=== PATIENT | female | born 1945 | race Caucasian/White ===

== ENCOUNTER 2020-12-11 09:24 | Outpatient (REF) | payer MEDICARE, SELFPAY ==
[2020-12-11 11:47] LABS: MANUAL DIFF FLAG NO
[2020-12-11 11:55] LABS: Basophils Absolute Auto 0.1 X10*3/uL (0.0-0.2); Basophils Percent Auto 0.7 % (0-2); Eosinophils Absolute Auto 0.1 X10*3/uL (0.0-0.4); Eosinophils Percent Auto 1.4 % (0-4); Hematocrit 35.7 % (37-47); Hemoglobin 11.8 g/dl (12.0-16.0); Imm Gran Abs Auto 0.02 X10*3/uL (0.00-0.03); Imm Gran Pct Auto 0.3 % (0.0-0.4); Lymphocytes Absolute Auto 1.9 X10*3/uL (1.2-4.9); Lymphocytes Percent Auto 26.6 % (20-40); Mean Corpuscular HGB Conc 33.1 g/dl (31.0-35.0); Mean Corpuscular Hemoglobin 29.6 pg (27.0-33.0); Mean Corpuscular Volume 89.7 fL (80-98); Mean Platelet Volume 11.4 fL (9.4-12.3); Monocytes Absolute Auto 0.6 X10*3/uL (0.1-1.2); Monocytes Percent Auto 8.4 % (2-11); Neutrophils Absolute Auto 4.6 X10*3/uL (2.0-8.3); Neutrophils Percent Auto 62.6 % (45-73); Platelet Count 285 X10*3/uL (160-400); Red Blood Count 3.98 X10*6/uL (4.20-5.50); Red Cell Distribution Width 14.4 % (11.0-16.0); White Blood Count 7.3 X10*3/uL (4.8-10.8)
[2020-12-11 12:19] LABS: Estimated Average Glucose 108 mg/dL; Hemoglobin A1c % 5.4 %
[2020-12-11 12:47] LABS: Alanine Aminotransferase < 6 U/L (0-31); Anion Gap 14 (12-20); Blood Urea Nitrogen 15 mg/dL (9-16); Carbon Dioxide 22 mmol/L (22-29); Chloride 105 mmol/L (96-108); Cholesterol 191 mg/dL; Estimated Glomerular Filt Rate > 60; Glucose Fasting 106 mg/dL (60-99); HDL Cholesterol 65 mg/dL; LDL Cholesterol Calculated 106 mg/dl; Potassium 4.1 mmol/L (3.3-5.1); Sodium 137 mmol/L (135-145); Triglycerides 102 mg/dL
== END 2020-12-11 09:25 | disposition home or self-care (01) ==
LOC: HO.HMGCLDS 09:24
PROVIDERS: PCP Family Medicine; Visit Provider Family Medicine
DX: I10 Essential (primary) hypertension (principal); D64.9 Anemia, unspecified; E78.00 Pure hypercholesterolemia, unspecified; Z79.899 Other long term (current) drug therapy; E11.9 Type 2 diabetes mellitus without complications
CPT/HCPCS: 36415; 80051; 80061; 82550; 82565; 82947; 83036; 84460; 84520; 85025

== ENCOUNTER 2021-06-11 13:52 | Outpatient (REF) | payer MEDICARE, SELFPAY ==
--- NOTE | ~2021-06-11 | MM_ITS ---
EXAMINATION: MM SCREENING DIGITAL BREAST TOMOSYNTHESIS, BILATERAL CLINICAL INFORMATION: Screening. Asymptomatic. 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 The lifetime risk of breast cancer based on the Tyrer-Cuzick Model is 5%. COMPARISON: Mammography: 06/08/2020, 06/03/2019, 06/01/2018, 05/27/2016 TECHNIQUE: Digital breast tomosynthesis is performed in both the craniocaudal and mediolateral oblique views along with computer-aided detection (CAD). Synthesized 2D images are generated from the tomosynthesis. Exam tailored to patient capabilities. FINDINGS: There are scattered areas of fibroglandular density (ACR BI-RADS breast composition Category b). Parenchymal pattern is similar to prior studies and there is no developing density or significant mass or architectural abnormality. Biopsy clip marker again noted anterior 12:00 right breast. The axilla and skin contours are unremarkable. The left breast has some benign grouped coarse calcifications mid 7:00 position and posterior upper outer quadrant. There are 2 groups of probable benign fibroadenomatous calcifications central left breast, both increased since 2019. Patient will be recalled to further characterize with magnification views. MM/MM tomosynthesis screening BI IMPRESSION: 1. Left: 2 groups of relatively coarse calcifications central left breast increased in number, suspect probable fibroadenomatous change. 2. Right: No mammographic evidence of malignancy. ASSESSMENT: BI-RADS 0: Incomplete - Need Additional Imaging Evaluation RECOMMENDATION: 1. Additional views of the left breast (magnification CC, magnification ML). 2. Radiology department staff will contact the patient for additional imaging. This patient's information was entered into a reminder system with a target due date for their next mammogram.
== END 2021-06-11 13:53 | disposition home or self-care (01) ==
LOC: HO.MAMMO 13:52
PROVIDERS: PCP Family Medicine; Visit Provider Family Medicine
DX: Z12.31 Encounter for screening mammogram for malignant neoplasm of breast (principal)
CPT/HCPCS: 77063; 77067

== ENCOUNTER 2021-06-19 12:16 | Outpatient (REF) | payer MEDICARE, SELFPAY ==
--- NOTE | ~2021-06-19 | MM_ITS ---
EXAMINATION: MM DIAGNOSTIC DIGITAL MAMMOGRAPHY, LEFT CLINICAL INFORMATION: Recall from screening for 2 groups of increased calcifications central left breast. COMPARISON: Mammography: 06/11/2021, 06/08/2020, 06/03/2019 TECHNIQUE: Digital mammography is performed in the following views: Magnification CC, magnification ML. FINDINGS: There are scattered areas of fibroglandular density (ACR BI-RADS breast composition Category b). 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 A few centimeters anterior to this group are increased heterogeneously coarse calcifications which appear grouped in a circumferential pattern, possibly early fibroadenomatous change. There is a second group coarse calcifications of lesser number central upper outer left breast which have benign appearance, possibly early fibroadenomatous changes as well. Results and management options are provided to the patient and her sister at time of visit. MM/MM added views LT IMPRESSION: The 2 groups of increased calcifications left breast may represent early fibroadenomatous change. ASSESSMENT: BI-RADS 3: Probably Benign RECOMMENDATION: Diagnostic left mammography in 6 months. This patient's information was entered into a reminder system with a target due date for their next mammogram.
== END 2021-06-19 12:17 | disposition home or self-care (01) ==
LOC: HO.MAMMO 12:16
PROVIDERS: Visit Provider Family Medicine
DX: R92.1 Mammographic calcification found on diagnostic imaging of breast (principal)
CPT/HCPCS: 77065

== ENCOUNTER 2021-06-26 09:35 | Outpatient (REF) | payer MEDICARE, SELFPAY ==
[2021-06-26 12:26] LABS: Alanine Aminotransferase < 6 U/L (0-31); Anion Gap 14 (12-20); Aspartate Amino Transferase 10 U/L (5-31); Blood Urea Nitrogen 12 mg/dL (9-16); Carbon Dioxide 21 mmol/L (22-29); Chloride 106 mmol/L (96-108); Estimated Glomerular Filt Rate > 60; Potassium 4.6 mmol/L (3.3-5.1); Sodium 136 mmol/L (135-145)
[2021-06-26 12:28] LABS: Valproate 49.9 mcg/mL (50.0-100.0)
== END 2021-06-26 09:36 | disposition home or self-care (01) ==
LOC: HO.HMGCLDS 09:35
PROVIDERS: PCP Family Medicine; Visit Provider Family Medicine
DX: I10 Essential (primary) hypertension (principal); E78.00 Pure hypercholesterolemia, unspecified; Z79.899 Other long term (current) drug therapy
CPT/HCPCS: 36415; 80051; 80164; 82550; 82565; 84450; 84460; 84520

== ENCOUNTER 2021-12-10 09:51 | Outpatient (REF) | payer MEDICARE, SELFPAY ==
[2021-12-10 11:15] LABS: MANUAL DIFF FLAG NO
[2021-12-10 11:25] LABS: Basophils Percent Auto 0.5 % (0-2); Eosinophils Absolute Auto 0.1 X10*3/uL (0.0-0.4); Eosinophils Percent Auto 0.8 % (0-4); Hematocrit 34.4 % (37.0-47.0); Hemoglobin 11.6 g/dl (12.0-16.0); Imm Gran Abs Auto 0.02 X10*3/uL (0.00-0.03); Imm Gran Pct Auto 0.3 % (0.0-0.4); Lymphocytes Absolute Auto 1.6 X10*3/uL (1.2-4.9); Lymphocytes Percent Auto 24.6 % (20-40); Mean Corpuscular HGB Conc 33.7 g/dl (31.0-35.0); Mean Corpuscular Hemoglobin 29.6 pg (27.0-33.0); Mean Corpuscular Volume 87.8 fL (80.0-98.0); Mean Platelet Volume 10.6 fL (9.4-12.3); Monocytes Absolute Auto 0.6 X10*3/uL (0.1-1.2); Monocytes Percent Auto 9.8 % (2-11); Neutrophils Absolute Auto 4.1 x10*3/uL (2.0-8.3); Platelet Count 245 X10*3/uL (160-400); Red Blood Count 3.92 X10*6/uL (4.20-5.50); Red Cell Distribution Width 13.4 % (11.0-16.0); White Blood Count 6.3 X10*3/uL (4.8-10.8)
[2021-12-10 12:00] LABS: Valproate 53.7 mcg/mL (50.0-100.0)
[2021-12-10 12:03] LABS: Alanine Aminotransferase 6 U/L (0-31); Anion Gap 12 (12-20); Aspartate Amino Transferase 11 U/L (5-31); Blood Urea Nitrogen 8 mg/dL (9-16); Carbon Dioxide 22 mmol/L (22-29); Chloride 99 mmol/L (96-108); Estimated Glomerular Filt Rate > 60; Potassium 4.2 mmol/L (3.3-5.1); Sodium 129 mmol/L (135-145)
== END 2021-12-10 09:52 | disposition home or self-care (01) ==
LOC: HO.LAB 09:51
PROVIDERS: Visit Provider Family Medicine
DX: I10 Essential (primary) hypertension (principal); D64.9 Anemia, unspecified; Z79.899 Other long term (current) drug therapy
CPT/HCPCS: 36415; 80051; 80164; 82565; 84450; 84460; 84520; 85025

== ENCOUNTER 2021-12-20 12:28 | Outpatient (REF) | payer MEDICARE, SELFPAY ==
--- NOTE | ~2021-12-20 | MM_ITS ---
EXAMINATION: MM DIAGNOSTIC DIGITAL BREAST TOMOSYNTHESIS, LEFT CLINICAL INFORMATION: Short interval six-month follow-up for 2 groups probable benign calcifications, suspected fibroadenomatous change. The lifetime risk of breast cancer based on the Tyrer-Cuzick Model is 6%. COMPARISON: Mammography: 06/19/2021, 06/11/2021 (BI-RADS 0), 06/08/2020, 06/03/2019 TECHNIQUE: Digital breast tomosynthesis is performed in both the craniocaudal and mediolateral oblique views along with computer-aided detection (CAD). Synthesized 2D images are generated from the tomosynthesis. Additional views are obtained: Magnification CC, magnification ML x2, spot MLO. Technologist notes patient study limitations, 2 technologists required for patient positioning. Exam tailored to patient capabilities. FINDINGS: There are scattered areas of fibroglandular density (ACR BI-RADS breast composition Category b). There is fibronodular parenchymal pattern similar to prior studies. Parenchymal asymmetry mid upper left breast on MLO view shows normal effacement on the additional spot view. There are chronic benign coarse calcifications posterior upper outer left breast and posterior 7:00 left breast. The 2 groups of calcifications central left breast are similar to prior diagnostic exam and likely additional sites of fibroadenomatous change. They will be reassessed again at time of annual bilateral mammography, due in 6 months. Results are provided to the patient at time of visit by the technologist. MM/MM tomosynthesis diagnostic LT IMPRESSION: No significant changes from prior diagnostic exam. ASSESSMENT: BI-RADS 3: Probably Benign RECOMMENDATION: Diagnostic mammography at time of annual bilateral exam, due in 6 months. This patient's information was entered into a reminder system with a target due date for their next mammogram.
== END 2021-12-20 12:29 | disposition home or self-care (01) ==
LOC: HO.MAMMO 12:28
PROVIDERS: PCP Family Medicine; Visit Provider Family Medicine
DX: R92.1 Mammographic calcification found on diagnostic imaging of breast (principal)
CPT/HCPCS: 77061; 77065

== ENCOUNTER 2022-02-05 10:03 | Outpatient (REF) | payer MEDICARE, SELFPAY ==
--- NOTE | ~2022-02-05 | XR_ITS ---
EXAMINATION: XR CHEST CLINICAL INFORMATION: Cough. COMPARISON: None TECHNIQUE: 2 views of the chest were obtained. FINDINGS: No significant abnormality is noted involving the heart, lungs, mediastinum, bony thorax or soft tissues. XR/XR chest 2V IMPRESSION: Unremarkable chest examination.
== END 2022-02-05 10:04 | disposition home or self-care (01) ==
LOC: HO.HMGCX 10:03
PROVIDERS: Visit Provider Family Medicine
DX: R05.9 Cough, unspecified (principal)
CPT/HCPCS: 71046

== ENCOUNTER 2022-03-11 10:06 | Outpatient (REF) | payer MEDICARE, SELFPAY ==
[2022-03-11 11:20] LABS: MANUAL DIFF FLAG NO
[2022-03-11 11:26] LABS: Basophils Absolute Auto 0.1 X10*3/uL (0.0-0.2); Basophils Percent Auto 0.9 % (0-2); Eosinophils Percent Auto 0.6 % (0-4); Hematocrit 31.9 % (37.0-47.0); Hemoglobin 11.1 g/dl (12.0-16.0); Imm Gran Abs Auto 0.02 X10*3/uL (0.00-0.03); Imm Gran Pct Auto 0.4 % (0.0-0.4); Lymphocytes Absolute Auto 0.9 X10*3/uL (1.2-4.9); Lymphocytes Percent Auto 16.7 % (20-40); Mean Corpuscular HGB Conc 34.8 g/dl (31.0-35.0); Mean Corpuscular Hemoglobin 29.9 pg (27.0-33.0); Mean Platelet Volume 9.9 fL (9.4-12.3); Monocytes Absolute Auto 0.6 X10*3/uL (0.1-1.2); Monocytes Percent Auto 10.2 % (2-11); Neutrophils Absolute Auto 3.8 x10*3/uL (2.0-8.3); Neutrophils Percent Auto 71.2 % (45-73); Platelet Count 269 X10*3/uL (160-400); Red Blood Count 3.71 X10*6/uL (4.20-5.50); Red Cell Distribution Width 13.5 % (11.0-16.0); White Blood Count 5.4 X10*3/uL (4.8-10.8)
[2022-03-11 11:47] LABS: Anion Gap 14 (12-20); Carbon Dioxide 18 mmol/L (22-29); Chloride 95 mmol/L (96-108); Iron 84 mcg/dL (30-160); Percent Iron Saturation 27 % (15-50); Sodium 123 mmol/L (135-145); Total Iron Binding Capacity 308 mcg/dL (228-428); Unsaturated Iron Binding 224 ug/dL
== END 2022-03-11 10:07 | disposition home or self-care (01) ==
LOC: HO.HMGCLDS 10:06
PROVIDERS: Visit Provider Family Medicine
DX: I10 Essential (primary) hypertension (principal); D64.9 Anemia, unspecified
CPT/HCPCS: 36415; 80051; 83540; 85025

== ENCOUNTER 2022-03-14 10:19 | Outpatient (REF) | payer MEDICARE, SELFPAY ==
[2022-03-14 11:20] LABS: Osmolality Urine 360 mosm/kg (373-1093)
[2022-03-14 12:31] LABS: Anion Gap 14 (12-20); Carbon Dioxide 20 mmol/L (22-29); Chloride 102 mmol/L (96-108); Potassium 4.5 mmol/L (3.3-5.1); Sodium 131 mmol/L (135-145)
[2022-03-14 12:34] LABS: Osmolality, Serum 273 mosm/kg (281-305)
== END 2022-03-14 10:20 | disposition home or self-care (01) ==
LOC: HO.LAB 10:19
PROVIDERS: PCP Family Medicine; Visit Provider Family Medicine
DX: E87.1 Hypo-osmolality and hyponatremia (principal)
CPT/HCPCS: 36415; 80051; 83930; 83935; 84300

== ENCOUNTER 2022-06-05 10:25 | Outpatient (REF) | payer MEDICARE, SELFPAY ==
--- NOTE | ~2022-06-05 | MM_ITS ---
EXAMINATION: MM DIAGNOSTIC DIGITAL MAMMOGRAPHY, BILATERAL CLINICAL INFORMATION: Due for yearly. Also follow-up to probable benign groups of calcifications central left breast. The lifetime risk of breast cancer based on the Tyrer-Cuzick Model is 7%. COMPARISON: Mammography: 12/20/2021, 06/19/2021, 06/11/2021 (BI-RADS 0), 06/08/2020 TECHNIQUE: Digital mammography is performed in craniocaudal and mediolateral oblique views along with computer-aided detection (CAD). Additional magnification left CC x2 and magnification left ML x3 views are obtained. FINDINGS: There are scattered areas of fibroglandular density (ACR BI-RADS breast composition Category b). Parenchymal pattern is similar to prior studies and there is no developing density or interval mass or architectural abnormality. There is a biopsy clip marker again noted right breast anterior upper outer quadrant. There are scattered bilateral isolated coarse and vascular calcifications. Old grouped benign calcifications again seen posterior 7:00 left breast. The 2 groups of calcifications for follow-up central left breast are similar to prior diagnostic exam. One of the groups has coarser calcifications lesser in number and the other group has mixed fine and coarse calcifications likely circumferential arranged. Early fibroadenomatous changes suspected. Left breast calcifications will be reassessed again in 6 months. Results are provided to the patient at time of visit by the technologist. MM/MM diagnostic mammo BI IMPRESSION: Left: -Left breast calcifications for follow-up are without significant change. Right: -No mammographic evidence of malignancy. ASSESSMENT: BI-RADS 3: Probably Benign RECOMMENDATION: Diagnostic left mammography in 6 months. This patient's information was entered into a reminder system with a target due date for their next mammogram.
== END 2022-06-05 10:26 | disposition home or self-care (01) ==
LOC: HO.MAMMO 10:25
PROVIDERS: PCP Family Medicine; Visit Provider Family Medicine
DX: R92.1 Mammographic calcification found on diagnostic imaging of breast (principal)
CPT/HCPCS: 77062; 77066

== ENCOUNTER 2022-07-19 13:40 | Emergency (ER) | payer MEDICARE, SELFPAY ==
[2022-07-19 13:48] VITALS: BP 111/45; PULSE 55; O2SAT 95
[2022-07-19 14:09] VITALS: BP 118/48; PULSE 60; RESP 18; TEMP 36.7; O2SAT 99; BMI 29.1
--- NOTE | 2022-07-19 14:15 | ECG_ITS ---
Test Reason : weakness Blood Pressure : / mmHG Vent. Rate : 060 BPM Atrial Rate : 060 BPM P-R Int : 204 ms QRS Dur : 098 ms QT Int : 456 ms P-R-T Axes : 061 021 060 degrees QTc Int : 456 ms Sinus rhythm with Premature atrial complexes Nonspecific T wave abnormality Abnormal ECG When compared with ECG of 06-JUN-2013 10:23, Premature ventricular complexes are no longer Present Premature atrial complexes are now Present Vent. rate has decreased BY 38 BPM T wave inversion now evident in Anterior leads T wave inversion no longer evident in Lateral leads Referred By: Dale Dan Electronically Signed By:MARIAJOSE DUBON
--- NOTE | 2022-07-19 14:17 | ED.SYNCOPE ---
HPI - Syncope General Chief Complaint: Dizziness Stated Complaint: SYNCOPAL EPISODE Time Seen by Provider: 07/19/22 14:00 Source: patient Mode of arrival: EMS Limitations: no limitations History of Present Illness HPI narrative: 77-year-old female who presents emergency department for evaluation of a near syncopal episode. The patient lives in the [facility] living [facility]. She woke up this morning and felt fine. She states she used her walker and walked to the dining paige. She then ate a large bowl of cheddar broccoli soup which she states was very ?heavy ?. She states she then developed a change in her vision. She states that her vision became very ?white ?. She felt lightheaded as if she was going to pass out. Bystanders states she turned very pale. The patient states that she never loss consciousness. An ambulance was called. When they got her in the ambulance and before the ambulance left, the patient developed nausea and vomited. She states that after vomiting she felt back to normal. During the episode she denied chest pain, shortness of breath or diaphoresis. She states that she has not been ill over the past week. She denied fever, chills, rhinorrhea, sore throat, cough, chest pain, shortness of breath, frequency, urgency, dysuria, dark black stools or bloody stools. The patient states that yesterday she accidentally took her blood pressure medications (amlodipine and losartan) twice. She had no symptoms yesterday or this morning when she woke up. complaint: felt faint Onset (ago): hour(s) (1) Duration of episode: 15 -: minutes(s) Prodromal symptoms: none Witnessed: Yes - by Bystander Context: at rest and other (After eating soup) Injuries sustained associated with event: none Current symptoms: none Treatments prior to arrival: none Related Data Allergies Allergy/AdvReac Type Severity Reaction Status Date / Time propranolol [PROPRANOLOL] Allergy Unknown CONFUSSION, Unverified 07/20/20 15:50 aggitation Sulfa (Sulfonamide Allergy Unknown HIVES Unverified 07/20/20 15:50 Antibiotics) Review of Systems Review of Systems: Yes all other systems are reviewed and are negative [facility] Past Medical History [facility] Narrative: Past medical history: Diabetes mellitus, hypertension, hyperlipidemia, Parkinson's disease. Past surgical history: Total hysterectomy/bilateral salpingo-oophorectomy. Social history: She denies tobacco use, she denies alcohol use, she denies drug use. She lives in an assisted living apartment. Social History Social History Advance Directives: No Advance Directives Information Provided: Yes Physical Exam Vital Signs: Vital Signs: Last Vital Signs Temp 98.0 F 07/19/22 14:09 Pulse 60 07/19/22 14:09 Resp 18 07/19/22 14:09 BP 118/48 L 07/19/22 14:09 Pulse Ox 99 07/19/22 14:09 O2 Del Method 07/19/22 14:09 BMI result Body Mass Index 29.1 Const: General: cooperative and no acute distress Orientation/consciousness: oriented to person and oriented to place Limitations: no limitations HEENT: Head: Yes normal to inspection, Yes normocephalic and Yes atraumatic Ears: external ears normal General nose exam: Normal external nose present Face and sinus: Yes normal facial exam Mouth: Normal oral and palatal mucosa present Throat: Yes posterior oropharynx normal Eyes: General: appearance normal, both eyes and all related structures Pupils: Equal, round and reactive pupils present Neck: Neck: Yes normal visual inspection, Yes no lymphadenopathy, Yes trachea midline and Yes supple Chest: Chest palpation & inspection: normal inspection of the chest and normal palpation of entire chest wall Resp: Effort & Inspection: normal respiratory effort and able to speak in complete sentences Auscultation: clear to auscultation bilaterally Cardio: Rate: regular rate Rhythm: regular rhythm Heart sounds: S1 normal heart sound present, S2 normal heart sound present and no murmurs GI: Inspection: Yes normal to inspection Palpation (GI): Soft to palpation, nontender and no guarding Auscultation: normal bowel sounds : General: Yes no CVA tenderness Back/Spine/Pelvis: Back: no CVA tenderness Skin: General skin exam: no rashes or lesions noted Neuro: Other: Resting tremor General: oriented to person and oriented to place Cranial nerves: Yes CN's II-XII intact bilaterally and Yes Equal, round and reactive pupils present Cognition (Neuro): normal cognition Motor exam (neuro): 5/5 motor strength present throughout Extrem: General: Yes normal to inspection Psych: Appearance: grossly normal Speech and movement: Normal speech and movement present Affect: normal affect Attitude: cooperative Thought process: Normal thought process present Thought content: Normal thought content present Course Course Course Narrative: 77-year-old female who presents emergency department for evaluation of near syncopal episode that occurred after she ate a bowl of broccoli cheddar soup. The patient had a change her vision and felt as if she was going to faint. She never lost consciousness. When she got in the ambulance she developed nausea and vomited which relieved her symptoms. She currently has no complaints. Patient's physical examination was unremarkable. I did order a CBC, CMP, troponin, lipase, urinalysis, EKG. 1631: The patient's laboratory evaluation revealed mild anemia with an H&H of 11.2 and 34.5. Patient's troponin was below detectable limits. Patient's 12 EKG was unremarkable. Patient's presentation is consistent with vasovagal syncope triggered by the soup that she ate. I did discuss this with her. I do not think it is related to her taking extra dose of blood pressure medications yesterday. The patient was discharged home with printed and verbal instructions. MDM - Syncope Medical Records Attestation: I reviewed the patient's medical records. Lab Data Attestation: I reviewed the patient's lab results. Result diagrams: 07/19/22 15:17 07/19/22 15:17 Labs: Lab Results 07/19/22 07/19/22 07/19/22 Range/Units 15:17 15:17 15:17 WBC 8.4 (4.8-10.8) X10*3/uL RBC 3.90 L (4.20-5.50) X10*6/uL Hgb 11.2 L (12.0-16.0) g/dl Hct 34.5 L (37.0-47.0) % MCV 88.5 (80.0-98.0) fL MCH 28.7 (27.0-33.0) pg MCHC 32.5 (31.0-35.0) g/dl RDW 14.1 (11.0-16.0) % Plt Count 224 (160-400) X10*3/uL MPV 10.4 (9.4-12.3) fL Immature Gran % (Auto) 0.4 (0.0-0.4) % Neut % (Auto) 83.0 H (45-73) % Lymph % (Auto) 9.2 L (20-40) % [place] % (Auto) 6.8 (2-11) % Eos % (Auto) 0.2 (0-4) % Baso % (Auto) 0.4 (0-2) % Lymph # (Auto) 0.8 L (1.2-4.9) X10*3/uL [place] # (Auto) 0.6 (0.1-1.2) X10*3/uL Eos # (Auto) 0.0 (0.0-0.4) X10*3/uL Baso # (Auto) 0.0 (0.0-0.2) X10*3/uL Abs Immat Gran (auto) 0.03 (0.00-0.03) X10*3/uL Absolute Neuts (auto) 7.0 (2.0-8.3) x10*3/uL Absolute Nucleated RBC 0.000 (0.0-0.012) X10*3/uL Nucleated RBC % (auto) 0.0 (0.0-0.2) /100WBC Sodium 136 (135-145) mmol/L Potassium 4.6 (3.3-5.1) mmol/L Chloride 103 (96-108) mmol/L Carbon Dioxide 21 L (22-29) mmol/L Anion Gap 17 (12-20) BUN 14 D (9-16) mg/dL Creatinine 0.78 (0.5-1.4) mg/dL Estim Creat Clear Calc 59.3 Estimated GFR > 60 Random Glucose 120 H (60-115) mg/dL Calcium 9.0 (8.4-10.2) mg/dL Total Bilirubin 0.2 (0.0-1.0) mg/dL AST 11 (5-31) U/L ALT < 6 (0-31) U/L Alkaline Phosphatase 65 (39-117) U/L Troponin I High Sens < 3.5 (<3.5-17.0) ng/L Total Protein 7.3 (6.5-8.0) g/dL Albumin 3.8 (3.5-5.0) g/dL Lipase 29 (8-78) U/L ECG Data Attestation: I personally reviewed and interpreted this ECG as follows: Interpretation: 1500: Sinus rhythm with a rate of 60, first-degree AV block with LA interval of 204 milliseconds, normal QRS and QTC intervals, no ST segment elevation, no ST segment depression, inverted T-waves in V1, V2. Discharge Plan Discharge Clinical Impression: Vasovagal near-syncope Vomiting Qualifiers: Vomiting type: unspecified Nausea presence: with nausea Qualified Code(s): R11.2 - Nausea with vomiting, unspecified Patient Disposition: Home, Self-Care Instructions: Near Syncope (ED) Additional Instructions: Your blood work was unremarkable. Your EKG was unremarkable. I do not think that your symptoms were related to taking extra blood pressure medications. I believe that your symptoms were related to the soup that you ate which caused her to almost faint (near vasovagal syncope). Continue to take your medications as prescribed. Follow-up with your doctor in 2 days. Please return to the emergency department if your symptoms get worse or if you develop any symptoms that are concerning to you.
[2022-07-19 15:27] LABS: MANUAL DIFF FLAG NO
[2022-07-19 15:39] LABS: Basophils Percent Auto 0.4 % (0-2); Eosinophils Percent Auto 0.2 % (0-4); Hematocrit 34.5 % (37.0-47.0); Hemoglobin 11.2 g/dl (12.0-16.0); Imm Gran Abs Auto 0.03 X10*3/uL (0.00-0.03); Imm Gran Pct Auto 0.4 % (0.0-0.4); Lymphocytes Absolute Auto 0.8 X10*3/uL (1.2-4.9); Lymphocytes Percent Auto 9.2 % (20-40); Mean Corpuscular HGB Conc 32.5 g/dl (31.0-35.0); Mean Corpuscular Hemoglobin 28.7 pg (27.0-33.0); Mean Corpuscular Volume 88.5 fL (80.0-98.0); Mean Platelet Volume 10.4 fL (9.4-12.3); Monocytes Absolute Auto 0.6 X10*3/uL (0.1-1.2); Monocytes Percent Auto 6.8 % (2-11); Platelet Count 224 X10*3/uL (160-400); Red Cell Distribution Width 14.1 % (11.0-16.0); White Blood Count 8.4 X10*3/uL (4.8-10.8)
[2022-07-19 15:50] LABS: Troponin-I High Sensitivity < 3.5 ng/L (<3.5-17.0)
[2022-07-19 15:51] LABS: Alanine Aminotransferase < 6 U/L (0-31); Albumin Level 3.8 g/dL (3.5-5.0); Alkaline Phosphatase 65 U/L (39-117); Anion Gap 17 (12-20); Aspartate Amino Transferase 11 U/L (5-31); Bilirubin Total 0.2 mg/dL (0.0-1.0); Blood Urea Nitrogen 14 mg/dL (9-16); Carbon Dioxide 21 mmol/L (22-29); Chloride 103 mmol/L (96-108); Creatinine Clr Calc Pharmacy 59.3; Estimated Glomerular Filt Rate > 60; Glucose Random 120 mg/dL (60-115); Lipase 29 U/L (8-78); Potassium 4.6 mmol/L (3.3-5.1); Sodium 136 mmol/L (135-145); Total Protein 7.3 g/dL (6.5-8.0)
[2022-07-19 17:03] LABS: Appearance Urine Clear; Color Urine Yellow; Glucose Urine UA Negative (Negative); Leukocyte Esterase Urine Negative (Negative); Nitrite Urine Negative (Negative); PH 6.5 (5.0-9.0); Urine Blood Negative (Negative); Urine Ketones Trace mg/dL (Negative); Urine Protein Negative (Neg-Trace)
--- NOTE | 2022-07-19 17:59 | PC.NURSE ---
pt a&ox3, vss, IV removed, pt discharged back to [facility], spoke w staff at [facility] to ensure that pt's walker is at the front door waiting for her.
== END 2022-07-19 19:03 | disposition home or self-care (01) ==
PROVIDERS: Emergency Provider Emergency Medicine Emergency Medical Services; PCP Family Medicine
DX: R55 Syncope and collapse (principal); R11.2 Nausea with vomiting, unspecified
CPT/HCPCS: 36415; 80053; 81003; 83690; 84484; 85025; 93005; 99283

== ENCOUNTER 2022-07-23 10:43 | Outpatient (REF) | payer MEDICARE, SELFPAY ==
[2022-07-23 13:48] LABS: MANUAL DIFF FLAG NO
[2022-07-23 14:06] LABS: Basophils Percent Auto 0.7 % (0-2); Eosinophils Absolute Auto 0.1 X10*3/uL (0.0-0.4); Hematocrit 34.3 % (37.0-47.0); Hemoglobin 11.2 g/dl (12.0-16.0); Imm Gran Abs Auto 0.02 X10*3/uL (0.00-0.03); Imm Gran Pct Auto 0.3 % (0.0-0.4); Lymphocytes Absolute Auto 1.3 X10*3/uL (1.2-4.9); Lymphocytes Percent Auto 21.4 % (20-40); Mean Corpuscular HGB Conc 32.7 g/dl (31.0-35.0); Mean Corpuscular Hemoglobin 28.9 pg (27.0-33.0); Mean Corpuscular Volume 88.4 fL (80.0-98.0); Mean Platelet Volume 10.8 fL (9.4-12.3); Monocytes Absolute Auto 0.6 X10*3/uL (0.1-1.2); Monocytes Percent Auto 9.3 % (2-11); Neutrophils Percent Auto 67.3 % (45-73); Platelet Count 246 X10*3/uL (160-400); Red Blood Count 3.88 X10*6/uL (4.20-5.50); Red Cell Distribution Width 14.1 % (11.0-16.0); White Blood Count 5.9 X10*3/uL (4.8-10.8)
[2022-07-23 14:27] LABS: Alanine Aminotransferase 8 U/L (0-31); Anion Gap 15 (12-20); Aspartate Amino Transferase 12 U/L (5-31); Blood Urea Nitrogen 13 mg/dL (9-16); Carbon Dioxide 24 mmol/L (22-29); Chloride 99 mmol/L (96-108); Estimated Glomerular Filt Rate > 60; Potassium 4.4 mmol/L (3.3-5.1); Sodium 134 mmol/L (135-145)
[2022-07-23 14:56] LABS: Valproate 66.5 mcg/mL (50.0-100.0)
== END 2022-07-23 10:44 | disposition home or self-care (01) ==
LOC: HO.HMGCLDS 10:43
PROVIDERS: PCP Family Medicine; Visit Provider Family Medicine
DX: I10 Essential (primary) hypertension (principal); D64.9 Anemia, unspecified; Z79.899 Other long term (current) drug therapy
CPT/HCPCS: 36415; 80051; 80164; 82565; 84450; 84460; 84520; 85025

== ENCOUNTER 2022-11-25 11:06 | Emergency (ER) | payer MEDICARE, SELFPAY ==
[2022-11-25 11:19] VITALS: BP 127/76; BP 138/60; PULSE 86; PULSE 95; RESP 20; TEMP 36.6; O2SAT 97; BMI 28.4
[2022-11-25 11:42] VITALS: BP 126/73; PULSE 89; RESP 16; TEMP 36.9; O2SAT 94
--- NOTE | 2022-11-25 11:43 | ED_ITS ---
HPI - General Adult General Chief complaint: Syncope Stated complaint: DIARRHEA Time Seen by Provider: 11/25/22 11:17 Source: patient Mode of arrival: ambulatory Limitations: no limitations History of Present Illness HPI narrative: The patient had 2 episodes of diarrhea, this morning she soiled herself because she was weak and the diarrhea was coming so fast. Yesterday she was feeling fine, today weak and diarrhea. The second episode she was able to make it to the toilet. Onset (ago): hour(s) Severity: mild Pain Consistency: now resolved Associated symptoms: malaise and weakness Related Data Allergies Allergy/AdvReac Type Severity Reaction Status Date / Time propranolol [PROPRANOLOL] Allergy Unknown CONFUSSION, Unverified 07/20/20 15:50 aggitation Sulfa (Sulfonamide Allergy Unknown HIVES Unverified 07/20/20 15:50 Antibiotics) PMFSH Social History Social History Advance Directives: Yes Advance Directives on File: No Physical Exam ED Vital Signs: Vital Signs - 24 hr 11/25/22 11:19 11/25/22 11:42 Temperature 98 F 98.4 F Pulse Rate 95 89 Respiratory Rate 20 16 Blood Pressure 138/60 126/73 Pulse Oximetry 97 94 Oxygen Delivery Method Room Air Room Air BMI result Body Mass Index 28.4 Course Reevaluation(s) Reevaluation #1: the patients anemia, hyponatremia are at her baseline awaiting Urine prior to discharge home. Will sign out to Dr. Sheldon Time: 17:04 Medications Administered Discontinued Medications Generic Name Dose Route Start Last Admin Trade Name Freq PRN Reason Stop Dose Admin Sodium Chloride 1,000 mls @ 500 mls/hr 11/25/22 12:00 11/25/22 16:49 Ns IVCONT 11/25/22 13:59 Infused .Q2H GIOVANNI Infusion Medical Decision Making Differential Diagnosis diarrhea, dehydration, UTI, electrolyte abnormalities Admission/Observation 77 yo prison resident presents with weakness secondary to diarrhea, admission is being considered Lab Data MDM Lab Attestation statement: I reviewed the patient's lab results. patients anemia, hyponatremia and low bicarb are at her baseline 11/25/22 12:58 11/25/22 12:58 Labs: Lab Results 11/25/22 11/25/22 Range/Units 12:58 12:58 WBC 9.9 (4.8-10.8) X10*3/uL RBC 3.80 L (4.20-5.50) X10*6/uL Hgb 11.5 L (12.0-16.0) g/dl Hct 34.3 L (37.0-47.0) % MCV 90.3 (80.0-98.0) fL MCH 30.3 (27.0-33.0) pg MCHC 33.5 (31.0-35.0) g/dl RDW 14.2 (11.0-16.0) % Plt Count 210 (160-400) X10*3/uL MPV 10.2 (9.4-12.3) fL Immature Gran % (Auto) 0.5 H (0.0-0.4) % Neut % (Auto) 94.8 H (45-73) % Lymph % (Auto) 1.4 L (20-40) % [place] % (Auto) 3.1 (2-11) % Eos % (Auto) 0.0 (0-4) % Baso % (Auto) 0.2 (0-2) % Lymph # (Auto) 0.1 L (1.2-4.9) X10*3/uL [place] # (Auto) 0.3 (0.1-1.2) X10*3/uL Eos # (Auto) 0.0 (0.0-0.4) X10*3/uL Baso # (Auto) 0.0 (0.0-0.2) X10*3/uL Abs Immat Gran (auto) 0.05 H (0.00-0.03) X10*3/uL Absolute Neuts (auto) 9.4 H (2.0-8.3) x10*3/uL Absolute Nucleated RBC 0.000 (0.0-0.012) X10*3/uL Nucleated RBC % (auto) 0.0 (0.0-0.2) /100WBC Smear Tech's Comments VERIFIED Sodium 133 L (135-145) mmol/L Potassium 4.4 (3.3-5.1) mmol/L Chloride 105 (96-108) mmol/L Carbon Dioxide 19 L (22-29) mmol/L Anion Gap 13 (12-20) BUN 15 (9-16) mg/dL Creatinine 0.71 (0.5-1.4) mg/dL Estim Creat Clear Calc 62.0 Estimated GFR > 60 Random Glucose 123 H (60-115) mg/dL Calcium 8.7 (8.4-10.2) mg/dL Total Bilirubin 0.3 (0.0-1.0) mg/dL AST 15 (5-31) U/L ALT 8 (0-31) U/L Alkaline Phosphatase 61 (39-117) U/L Total Protein 6.9 (6.5-8.0) g/dL Albumin 3.6 (3.5-5.0) g/dL Discharge Plan Discharge Clinical Impression: Diarrhea, Weakness Patient Disposition: Still a Patient
[2022-11-25] MEDS: 0.9 % Sodium Chloride 1,000 ML 500 ML IVCONT (13:00)
[2022-11-25 13:05] LABS: Basophils Percent Auto 0.2 % (0-2); Hematocrit 34.3 % (37.0-47.0); Hemoglobin 11.5 g/dl (12.0-16.0); Imm Gran Abs Auto 0.05 X10*3/uL (0.00-0.03); Imm Gran Pct Auto 0.5 % (0.0-0.4); Lymphocytes Absolute Auto 0.1 X10*3/uL (1.2-4.9); Lymphocytes Percent Auto 1.4 % (20-40); MANUAL DIFF FLAG SCAN; Mean Corpuscular HGB Conc 33.5 g/dl (31.0-35.0); Mean Corpuscular Hemoglobin 30.3 pg (27.0-33.0); Mean Corpuscular Volume 90.3 fL (80.0-98.0); Mean Platelet Volume 10.2 fL (9.4-12.3); Monocytes Absolute Auto 0.3 X10*3/uL (0.1-1.2); Monocytes Percent Auto 3.1 % (2-11); Neutrophils Absolute Auto 9.4 x10*3/uL (2.0-8.3); Neutrophils Percent Auto 94.8 % (45-73); Platelet Count 210 X10*3/uL (160-400); Red Cell Distribution Width 14.2 % (11.0-16.0); SCAN SMEAR FLAG 1; White Blood Count 9.9 X10*3/uL (4.8-10.8)
[2022-11-25 13:29] LABS: SLIDE REVIEW VERIFIED
[2022-11-25 13:42] LABS: Alanine Aminotransferase 8 U/L (0-31); Albumin Level 3.6 g/dL (3.5-5.0); Alkaline Phosphatase 61 U/L (39-117); Anion Gap 13 (12-20); Aspartate Amino Transferase 15 U/L (5-31); Bilirubin Total 0.3 mg/dL (0.0-1.0); Blood Urea Nitrogen 15 mg/dL (9-16); Calcium 8.7 mg/dL (8.4-10.2); Carbon Dioxide 19 mmol/L (22-29); Chloride 105 mmol/L (96-108); Estimated Glomerular Filt Rate > 60; Glucose Random 123 mg/dL (60-115); Potassium 4.4 mmol/L (3.3-5.1); Sodium 133 mmol/L (135-145); Total Protein 6.9 g/dL (6.5-8.0)
[2022-11-25 17:50] LABS: Appearance Urine Clear; Color Urine Yellow; Glucose Urine UA Negative (Negative); Leukocyte Esterase Urine Trace (Negative); Nitrite Urine Negative (Negative); PH 6.5 (5.0-9.0); Specific Gravity - Urine 1.015 (1.005-1.025); UMIC TRIGGER UACC YES; Urine Blood Negative (Negative); Urine Ketones Negative (Negative); Urine Protein Negative (Neg-Trace)
[2022-11-25 17:53] LABS: Bacteria Urine None Seen (None Seen); Hyaline Casts Urine 0-2 /LPF (0-2); RBC Urine 0-2 /HPF (0-2); WBC Urine 0-5 /HPF (0-5)
--- NOTE | 2022-11-25 21:20 | PC.NURSE ---
Report called to [facility] [place], spoke to Juliann. Patient transported to [facility] by [facility].
[2022-11-25 21:22] VITALS: BP 118/82; PULSE 86; RESP 16; TEMP 37.1; O2SAT 96
== END 2022-11-25 21:25 | disposition skilled nursing facility (03) ==
PROVIDERS: Emergency Medicine; Emergency Provider Emergency Medicine; PCP Family Medicine
DX: R19.7 Diarrhea, unspecified (principal); R53.1 Weakness; D64.9 Anemia, unspecified; I10 Essential (primary) hypertension; E78.5 Hyperlipidemia, unspecified
CPT/HCPCS: 36415; 51701; 80053; 81001; 85025; 96360; 96361; 99284; 99285

== ENCOUNTER 2022-12-01 16:55 | Emergency (ER) | payer MEDICARE, SELFPAY ==
--- NOTE | 2022-12-01 17:06 | ED.GENADULT ---
HPI - General Adult General Chief complaint: Altered Mental Status Stated complaint: VISUAL HALLUCINATION/BUGS PER ASSIST LIVING STAFF Time Seen by Provider: 12/01/22 17:03 Source: patient and EMS Mode of arrival: EMS Limitations: no limitations History of Present Illness HPI narrative: 77-year-old female presents via EMS from her assisted living facility for ?altered mental status and hallucinations?. It was reported that patient saw bugs crawling on her floor, and when staff went in the did not see any bugs. Patient was sent for evaluation. Patient has no physical complaints at this time. Onset (ago): hour(s) (Within the hour of arrival) Severity: mild Associated symptoms: confusion Treatments prior to arrival: none Related Data Home Medications Medication Instructions Recorded Confirmed amlodipine 10 mg tablet 1 tab PO DAILY 12/01/22 12/01/22 atorvastatin 20 mg tablet 1 tab PO BEDTIME 12/01/22 12/01/22 divalproex 500 mg tablet,delayed 1 tab PO DAILY 12/01/22 12/01/22 release famotidine 40 mg tablet 1 tab PO QPM 12/01/22 12/01/22 lorazepam 0.5 mg tablet 1 tab PO BID PRN Anxiety 12/01/22 12/01/22 losartan 100 mg tablet 1 tab PO DAILY 12/01/22 12/01/22 metoprolol succinate 25 mg 1 tab PO BEDTIME 12/01/22 12/01/22 tablet,extended release 24 hr olanzapine 7.5 mg tablet 1 tab PO BEDTIME 12/01/22 12/01/22 trazodone 50 mg tablet 2 tab PO BEDTIME 12/01/22 12/01/22 Previous Rx's Medication Instructions Recorded loperamide 2 mg capsule (Imodium 2 mg PO Q4H PRN loose stool #14 11/25/22 A-D) caps cefuroxime axetil 500 mg tablet 500 mg PO Q12H 5 days #10 tabs 12/01/22 Allergies Allergy/AdvReac Type Severity Reaction Status Date / Time propranolol [PROPRANOLOL] Allergy Unknown CONFUSSION, Verified 12/01/22 17:36 aggitation Sulfa (Sulfonamide Allergy Unknown HIVES Verified 12/01/22 17:36 Antibiotics) Review of Systems Review of Systems: Constitutional: No Fever, No Chills Cardiovascular: No Chest Pain, No SOB Respiratory: No Cough, No Dyspnea Gastrointestinal: No Nausea, No Vomiting, No Diarrhea, No abdominal Pain Genitourinary: No Dysuria, No Hematuria Musculoskeletal: No joint pain, No Myalgias, No Joint Swelling Skin: No Skin lacerations, No rash Neuro: No Weakness, No Loss of Consciousness, No Dizziness, No Headache Yes all other systems are reviewed and are negative FOR[facility]LY [facility] Past Medical History Attestation statement: The following information was validated with the patient. 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 Oriented X3. No acute distress. Eyes: Pupils equal, round and reactive to light. ENT: Pharynx normal. Neck: Normal inspection. Neck supple. CVS: Normal heart rate and rhythm. Pulses normal. Respiratory: No respiratory distress. Breath sounds normal. Abdomen: Soft and nontender. Skin: Skin warm and dry. Normal skin color. Normal skin turgor. Extremities: No lower extremity edema. Gait not assessed for safety. Neuro: No motor deficit. No sensory deficit. Cranial nerves 2-12 intact. Course Course Course Narrative: 77-year-old female presents via EMS from an assisted living facility for report of this patient seeing bugs. Patient reported to staff that she saw bugs crawling across the floor however when the staff presented to the patient's room they did not see any insects. Patient was then sent to the emergency department for evaluation for ?visual hallucinations and altered mental status?. The time patient is and oriented x4, able to answer all questions appropriately. Will order workup with labs, and urinalysis. NIH stroke scale 0. Calmar coma scale 15 Urinalysis indicates possible UTI with moderate leukocyte esterase, urine white blood cells, and a question of mild dehydration with an elevated BUN of 17 and hyponatremia of 134. These values have been consistent with her prior values. Patient is alert oriented x4, answering questions politely and appropriately, appears nontoxic, afebrile, vital signs are within normal limits. Will treat with ceftriaxone and had 500 mL of fluid. Patient's family feels that this patient is safe at her facility, and would like her to be discharged home, patient does agree with this plan and also feels safe. Plan of care is to discharge home with cefuroxime 500 mg twice a day for the next 5 days. Patient verbalized understanding of and agrees care discharge home. Verbalized understanding of signs symptoms indicating need for emergent intervention. Medications Administered Discontinued Medications Generic Name Dose Route Start Last Admin Trade Name Freq PRN Reason Stop Dose Admin Sodium Chloride 1,000 mls @ 999 mls/hr 12/01/22 18:45 12/01/22 20:00 Ns IVCONT 12/01/22 19:45 999 mls/hr .Q1H1M GIOVANNI Administration Ceftriaxone Sodium 1 gm/ 50 mls @ 100 mls/hr 12/01/22 18:33 12/01/22 21:00 Sodium Chloride IV 12/01/22 19:02 Infused ONCE ONE Infusion Medical Decision Making Differential Diagnosis Differential Diagnoses: The differential diagnosis associated with the presentation includes UTI Lab Data MDM Lab Attestation statement: I reviewed the patient's lab results. 12/01/22 17:29 12/01/22 17:29 Labs: Lab Results 12/01/22 12/01/22 12/01/22 Range/Units 17:29 17:29 17:29 WBC 7.3 (4.8-10.8) X10*3/uL RBC 3.69 L (4.20-5.50) X10*6/uL Hgb 10.9 L (12.0-16.0) g/dl Hct 32.1 L (37.0-47.0) % MCV 87.0 (80.0-98.0) fL MCH 29.5 (27.0-33.0) pg MCHC 34.0 (31.0-35.0) g/dl RDW 14.1 (11.0-16.0) % Plt Count 206 (160-400) X10*3/uL MPV 9.9 (9.4-12.3) fL Immature Gran % (Auto) 0.4 (0.0-0.4) % Neut % (Auto) 64.8 (45-73) % Lymph % (Auto) 24.8 (20-40) % Morton % (Auto) 8.6 (2-11) % Eos % (Auto) 1.1 (0-4) % Baso % (Auto) 0.3 (0-2) % Lymph # (Auto) 1.8 (1.2-4.9) X10*3/uL Morton # (Auto) 0.6 (0.1-1.2) X10*3/uL Eos # (Auto) 0.1 (0.0-0.4) X10*3/uL Baso # (Auto) 0.0 (0.0-0.2) X10*3/uL Abs Immat Gran (auto) 0.03 (0.00-0.03) X10*3/uL Absolute Neuts (auto) 4.8 (2.0-8.3) x10*3/uL Absolute Nucleated RBC 0.000 (0.0-0.012) X10*3/uL Nucleated RBC % (auto) 0.0 (0.0-0.2) /100WBC Sodium 134 L (135-145) mmol/L Potassium 3.5 D (3.3-5.1) mmol/L Chloride 102 (96-108) mmol/L Carbon Dioxide 22 (22-29) mmol/L Anion Gap 14 (12-20) BUN 17 H (9-16) mg/dL Creatinine 0.76 (0.5-1.4) mg/dL Estim Creat Clear Calc 57.5 Estimated GFR > 60 Random Glucose 98 (60-115) mg/dL Calcium 9.2 (8.4-10.2) mg/dL Urine Color Urine Appearance Urine pH (5.0-9.0) Ur Specific Ortley (1.005-1.025) Urine Protein (Neg-Trace) mg/dL Urine Glucose (UA) (Negative) mg/dL Urine Ketones (Negative) mg/dL Urine Blood (Negative) Urine Nitrite (Negative) Ur Leukocyte Esterase (Negative) Urine RBC (0-2) /HPF Urine WBC (0-5) /HPF Ur Squamous Epith Cells (0-2) /HPF Urine Bacteria (None Seen) Hyaline Casts (0-2) /LPF Urine Opiates Screen (Not Detect) Urine Fentanyl Screen (Not Detect) Ur Barbiturates Screen (Not Detect) Valproic Acid (50.0-100.0) mcg/mL Ur Phencyclidine Scrn (Not Detect) Ur Amphetamines Screen (Not Detect) U Benzodiazepines Scrn (Not Detect) Urine Cocaine Screen (Not Detect) U Marijuana (THC) Screen (Not Detect) Ethyl Alcohol mg/dL Influenza Type A (PCR) NEGATIVE (Negative) Influenza Type B (PCR) NEGATIVE (Negative) RSV RNA Qual (PCR) NEGATIVE (Negative) SARS-CoV-2 RNA (RT-PCR) NEGATIVE (Negative) 12/01/22 12/01/22 12/01/22 Range/Units 17:29 17:29 17:29 WBC (4.8-10.8) X10*3/uL RBC (4.20-5.50) X10*6/uL Hgb (12.0-16.0) g/dl Hct (37.0-47.0) % MCV (80.0-98.0) fL MCH (27.0-33.0) pg MCHC (31.0-35.0) g/dl RDW (11.0-16.0) % Plt Count (160-400) X10*3/uL MPV (9.4-12.3) fL Immature Gran % (Auto) (0.0-0.4) % Neut % (Auto) (45-73) % Lymph % (Auto) (20-40) % Morton % (Auto) (2-11) % Eos % (Auto) (0-4) % Baso % (Auto) (0-2) % Lymph # (Auto) (1.2-4.9) X10*3/uL Morton # (Auto) (0.1-1.2) X10*3/uL Eos # (Auto) (0.0-0.4) X10*3/uL Baso # (Auto) (0.0-0.2) X10*3/uL Abs Immat Gran (auto) (0.00-0.03) X10*3/uL Absolute Neuts (auto) (2.0-8.3) x10*3/uL Absolute Nucleated RBC (0.0-0.012) X10*3/uL Nucleated RBC % (auto) (0.0-0.2) /100WBC Sodium (135-145) mmol/L Potassium (3.3-5.1) mmol/L Chloride (96-108) mmol/L Carbon Dioxide (22-29) mmol/L Anion Gap (12-20) BUN (9-16) mg/dL Creatinine (0.5-1.4) mg/dL Estim Creat Clear Calc Estimated GFR Random Glucose (60-115) mg/dL Calcium (8.4-10.2) mg/dL Urine Color Dark Yellow Urine Appearance Clear Urine pH 6.0 (5.0-9.0) Ur Specific Ortley 1.025 (1.005-1.025) Urine Protein 30 (1+) H (Neg-Trace) mg/dL Urine Glucose (UA) Negative (Negative) mg/dL Urine Ketones 15 (Negative) mg/dL Urine Blood Negative (Negative) Urine Nitrite Negative (Negative) Ur Leukocyte Esterase Moderate (2+) H (Negative) Urine RBC 0-2 (0-2) /HPF Urine WBC 21-50 H (0-5) /HPF Ur Squamous Epith Cells 3-5 (0-2) /HPF Urine Bacteria None Seen (None Seen) Hyaline Casts 0-2 (0-2) /LPF Urine Opiates Screen Not Detected (Not Detect) Urine Fentanyl Screen POSITIVE H (Not Detect) Ur Barbiturates Screen POSITIVE H (Not Detect) Valproic Acid (50.0-100.0) mcg/mL Ur Phencyclidine Scrn Not Detected (Not Detect) Ur Amphetamines Screen POSITIVE H (Not Detect) U Benzodiazepines Scrn Not Detected (Not Detect) Urine Cocaine Screen Not Detected (Not Detect) U Marijuana (THC) Screen Not Detected (Not Detect) Ethyl Alcohol < 10 mg/dL Influenza Type A (PCR) (Negative) Influenza Type B (PCR) (Negative) RSV RNA Qual (PCR) (Negative) SARS-CoV-2 RNA (RT-PCR) (Negative) 12/01/22 Range/Units 19:49 WBC (4.8-10.8) X10*3/uL RBC (4.20-5.50) X10*6/uL Hgb (12.0-16.0) g/dl Hct (37.0-47.0) % MCV (80.0-98.0) fL MCH (27.0-33.0) pg MCHC (31.0-35.0) g/dl RDW (11.0-16.0) % Plt Count (160-400) X10*3/uL MPV (9.4-12.3) fL Immature Gran % (Auto) (0.0-0.4) % Neut % (Auto) (45-73) % Lymph % (Auto) (20-40) % Morton % (Auto) (2-11) % Eos % (Auto) (0-4) % Baso % (Auto) (0-2) % Lymph # (Auto) (1.2-4.9) X10*3/uL Morton # (Auto) (0.1-1.2) X10*3/uL Eos # (Auto) (0.0-0.4) X10*3/uL Baso # (Auto) (0.0-0.2) X10*3/uL Abs Immat Gran (auto) (0.00-0.03) X10*3/uL Absolute Neuts (auto) (2.0-8.3) x10*3/uL Absolute Nucleated RBC (0.0-0.012) X10*3/uL Nucleated RBC % (auto) (0.0-0.2) /100WBC Sodium (135-145) mmol/L Potassium (3.3-5.1) mmol/L Chloride (96-108) mmol/L Carbon Dioxide (22-29) mmol/L Anion Gap (12-20) BUN (9-16) mg/dL Creatinine (0.5-1.4) mg/dL Estim Creat Clear Calc Estimated GFR Random Glucose (60-115) mg/dL Calcium (8.4-10.2) mg/dL Urine Color Urine Appearance Urine pH (5.0-9.0) Ur Specific Ortley (1.005-1.025) Urine Protein (Neg-Trace) mg/dL Urine Glucose (UA) (Negative) mg/dL Urine Ketones (Negative) mg/dL Urine Blood (Negative) Urine Nitrite (Negative) Ur Leukocyte Esterase (Negative) Urine RBC (0-2) /HPF Urine WBC (0-5) /HPF Ur Squamous Epith Cells (0-2) /HPF Urine Bacteria (None Seen) Hyaline Casts (0-2) /LPF Urine Opiates Screen (Not Detect) Urine Fentanyl Screen (Not Detect) Ur Barbiturates Screen (Not Detect) Valproic Acid 79.4 (50.0-100.0) mcg/mL Ur Phencyclidine Scrn (Not Detect) Ur Amphetamines Screen (Not Detect) U Benzodiazepines Scrn (Not Detect) Urine Cocaine Screen (Not Detect) U Marijuana (THC) Screen (Not Detect) Ethyl Alcohol mg/dL Influenza Type A (PCR) (Negative) Influenza Type B (PCR) (Negative) RSV RNA Qual (PCR) (Negative) SARS-CoV-2 RNA (RT-PCR) (Negative) Independent Historian Clinical information obtained from an independent historian. History obtained from or confirmed by: Other (Family) External Record Review External record reviewed: Outpatient record and Prior outpatient labs Prescription Management I considered prescription management with: Antibiotic Chronic Conditions Patient?s care impacted by: Hypertension Discharge Plan Discharge Clinical Impression: Acute UTI, Acute dehydration Patient Disposition: Home, Self-Care Instructions: Dehydration (ED), Urinary Tract Infection in Older Adults (ED) Additional Instructions: You were evaluated for suspected visual hallucination. Your CBC values are within your normal limits. Your urinalysis indicates UTI. Please take cefuroxime 500 mg every 12 hours for the next days. Start this medication on 12/02/2022. We gave you 1st dose of antibiotics in the emergency department. Please stop taking her from [facility] while taking this medication. You may resume famotidine 1 day after completing your cefuroxime. Your chemistry values indicated mild dehydration. Please drink plenty of fluids. We gave you 1 L of IV fluids while in the emergency department. Thank you for choosing this emergency department for evaluation. Please follow-up with primary care physician as needed. Return to the emergency department for any new, concerning, or worsening symptoms. Prescriptions: New cefuroxime axetil 500 mg tablet 500 mg PO Q12H 5 Days Qty: 10 0RF No Action atorvastatin 20 mg tablet 1 tab PO BEDTIME trazodone 50 mg tablet 2 tab PO BEDTIME famotidine 40 mg tablet 1 tab PO QPM divalproex 500 mg tablet,delayed release (DR/EC) 1 tab PO DAILY olanzapine 7.5 mg tablet 1 tab PO BEDTIME lorazepam 0.5 mg tablet 1 tab PO BID PRN (Reason: Anxiety) amlodipine 10 mg tablet 1 tab PO DAILY metoprolol succinate 25 mg tablet extended release 24 hr 1 tab PO BEDTIME losartan 100 mg tablet 1 tab PO DAILY loperamide [Imodium A-D] 2 mg capsule 2 mg PO Q4H PRN (Reason: loose stool) Qty: 14 0RF Rx Instructions: administer after each loose stool until symptoms controlled; do not exceed 8 mg per 24 hrs Referrals: Collins Serrano MD [Primary Care Provider] - 5 days (Dehydration, UTI)
[2022-12-01 17:14] VITALS: BP 155/64; PULSE 71; RESP 16; TEMP 36.8; O2SAT 96; BMI 28.0
--- NOTE | 2022-12-01 17:40 | PC.NURSE ---
nathaniel Almaraz, pt called nursing staff due to bugs in her room - nursing staff didn't see anything in her room, pt sent to ED for visual hallucinations. pt denies seeing any bugs at this time, pt a&ox4, answering all questions appropriately, vss, clean catch urine/labs obtained. pt pending ED provider/lab results. 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 no new orders at this time.
[2022-12-01 17:41] LABS: MANUAL DIFF FLAG NO
[2022-12-01 17:45] LABS: Basophils Percent Auto 0.3 % (0-2); Eosinophils Absolute Auto 0.1 X10*3/uL (0.0-0.4); Eosinophils Percent Auto 1.1 % (0-4); Hematocrit 32.1 % (37.0-47.0); Hemoglobin 10.9 g/dl (12.0-16.0); Imm Gran Abs Auto 0.03 X10*3/uL (0.00-0.03); Imm Gran Pct Auto 0.4 % (0.0-0.4); Lymphocytes Absolute Auto 1.8 X10*3/uL (1.2-4.9); Lymphocytes Percent Auto 24.8 % (20-40); Mean Corpuscular Hemoglobin 29.5 pg (27.0-33.0); Mean Platelet Volume 9.9 fL (9.4-12.3); Monocytes Absolute Auto 0.6 X10*3/uL (0.1-1.2); Monocytes Percent Auto 8.6 % (2-11); Neutrophils Absolute Auto 4.8 x10*3/uL (2.0-8.3); Neutrophils Percent Auto 64.8 % (45-73); Platelet Count 206 X10*3/uL (160-400); Red Blood Count 3.69 X10*6/uL (4.20-5.50); Red Cell Distribution Width 14.1 % (11.0-16.0); White Blood Count 7.3 X10*3/uL (4.8-10.8)
[2022-12-01 17:47] LABS: Appearance Urine Clear; Color Urine Dark Yellow; Glucose Urine UA Negative (Negative); Leukocyte Esterase Urine Moderate (2+) (Negative); Nitrite Urine Negative (Negative); Specific Gravity - Urine 1.025 (1.005-1.025); UMIC TRIGGER UACC YES; Urine Blood Negative (Negative); Urine Ketones 15 mg/dL (Negative); Urine Protein 30 (1+) mg/dL (Neg-Trace)
[2022-12-01 17:49] LABS: Amphetamine Screen Urine POSITIVE (Not Detect); Barbiturates, Urine POSITIVE (Not Detect); Benzodiazepines Screen Urine Not Detected (Not Detect); Cannabinoid Screen Urine Not Detected (Not Detect); Cocaine Screen Urine Not Detected (Not Detect); Fentanyl, urine POSITIVE (Not Detect); Opiate Screen Urine Not Detected (Not Detect); Phencyclidine Screen Urine Not Detected (Not Detect)
[2022-12-01 17:57] LABS: Anion Gap 14 (12-20); Blood Urea Nitrogen 17 mg/dL (9-16); Calcium 9.2 mg/dL (8.4-10.2); Carbon Dioxide 22 mmol/L (22-29); Chloride 102 mmol/L (96-108); Creatinine Clr Calc Pharmacy 57.5; Estimated Glomerular Filt Rate > 60; Glucose Random 98 mg/dL (60-115); Potassium 3.5 mmol/L (3.3-5.1); Sodium 134 mmol/L (135-145)
[2022-12-01 17:59] LABS: Ethanol < 10 mg/dL
[2022-12-01 18:01] LABS: Bacteria Urine None Seen (None Seen); Hyaline Casts Urine 0-2 /LPF (0-2); RBC Urine 0-2 /HPF (0-2); UACC Culture Trigger YES; WBC Urine 21-50 /HPF (0-5)
--- NOTE | 2022-12-01 18:04 | PC.NURSE ---
med rec complete.
[2022-12-01 18:23] LABS: Influenza A PCR NEGATIVE (Negative); Influenza B PCR NEGATIVE (Negative); Resp Syncy Virus RNA Qual PCR NEGATIVE (Negative); SARS COV2 PCR INHOUSE NEGATIVE (Negative)
[2022-12-01] MEDS: 0.9 % Sodium Chloride 1,000 ML 999 ML IVCONT (20:00)
[2022-12-01 20:04] LABS: Valproate 79.4 mcg/mL (50.0-100.0)
[2022-12-01] MEDS: cefTRIAXone sodium 1 GM in 0.9 % Sodium Chloride 50 ML IV (20:25)
--- NOTE | 2022-12-01 20:30 | PC.NURSE ---
pt medicated per provider order, initial IV infiltrated, 22G IV placed left AC, ivf running, plan to discharge after medication finishes. no new orders at this time.
--- NOTE | 2022-12-01 21:23 | PC.NURSE ---
per provider, okay to d/c NS @ 500ml, plan to discharge pt back to [facility] - family to drive pt home and p/u medication on the way, discharge instructions reviewed - family verbalizes understanding that famotidine should be discontinued while taking abx.
--- NOTE | 2022-12-01 21:44 | PC.NURSE ---
RN-RN report called into the [facility] in [place].
== END 2022-12-01 21:46 | disposition home or self-care (01) ==
PROVIDERS: Nurse Practitioner Family; Emergency Provider Internal Medicine; PCP Family Medicine
DX: N39.0 Urinary tract infection, site not specified (principal); E86.0 Dehydration; R44.1 Visual hallucinations; R41.0 Disorientation, unspecified; Z20.822 Contact with and (suspected) exposure to COVID-19; Z20.828 Contact with and (suspected) exposure to other viral communicable diseases; Z79.899 Other long term (current) drug therapy
CPT/HCPCS: 0241U; 36415; 80048; 80164; 80307; 81001; 82077; 85025; 87086; 96361; 96374; 99284; J0696

== ENCOUNTER 2022-12-02 12:34 | Emergency (ER) | payer MEDICARE, SELFPAY ==
[2022-12-02 12:41] VITALS: BP 106/64; PULSE 72; O2SAT 98
[2022-12-02 13:01] VITALS: BP 108/60; PULSE 66; RESP 16; TEMP 36.8; O2SAT 97; BMI 29.9
--- NOTE | 2022-12-02 13:20 | ECG_ITS ---
Test Reason : WEAKNESS Blood Pressure : / mmHG Vent. Rate : 064 BPM Atrial Rate : 064 BPM P-R Int : 182 ms QRS Dur : 104 ms QT Int : 490 ms P-R-T Axes : 049 -05 038 degrees QTc Int : 505 ms Normal sinus rhythm Prolonged QT Abnormal ECG When compared with ECG of 19-JUL-2022 15:00, Premature atrial complexes are no longer Present Nonspecific T wave abnormality no longer evident in Lateral leads QT has lengthened Referred By: Danielle Muhammad Electronically Signed By:Jean Marie Ann
[2022-12-02 13:50] VITALS: BP 130/64; PULSE 65; RESP 16; O2SAT 100
[2022-12-02 14:30] LABS: MANUAL DIFF FLAG NO
[2022-12-02 14:35] LABS: Basophils Percent Auto 0.3 % (0-2); Eosinophils Percent Auto 0.4 % (0-4); Hematocrit 35.5 % (37.0-47.0); Imm Gran Abs Auto 0.03 X10*3/uL (0.00-0.03); Imm Gran Pct Auto 0.4 % (0.0-0.4); Lymphocytes Absolute Auto 0.9 X10*3/uL (1.2-4.9); Lymphocytes Percent Auto 11.2 % (20-40); Mean Corpuscular HGB Conc 33.8 g/dl (31.0-35.0); Mean Corpuscular Hemoglobin 29.9 pg (27.0-33.0); Mean Corpuscular Volume 88.3 fL (80.0-98.0); Mean Platelet Volume 10.1 fL (9.4-12.3); Monocytes Absolute Auto 0.5 X10*3/uL (0.1-1.2); Monocytes Percent Auto 6.5 % (2-11); Neutrophils Absolute Auto 6.2 x10*3/uL (2.0-8.3); Neutrophils Percent Auto 81.2 % (45-73); Platelet Count 224 X10*3/uL (160-400); Red Blood Count 4.02 X10*6/uL (4.20-5.50); Red Cell Distribution Width 14.3 % (11.0-16.0); White Blood Count 7.6 X10*3/uL (4.8-10.8)
[2022-12-02 14:52] LABS: Alanine Aminotransferase < 6 U/L (0-31); Albumin Level 4.1 g/dL (3.5-5.0); Alkaline Phosphatase 64 U/L (39-117); Anion Gap 15 (12-20); Aspartate Amino Transferase 17 U/L (5-31); Bilirubin Total 0.3 mg/dL (0.0-1.0); Blood Urea Nitrogen 13 mg/dL (9-16); Calcium 9.7 mg/dL (8.4-10.2); Carbon Dioxide 21 mmol/L (22-29); Chloride 106 mmol/L (96-108); Creatinine Clr Calc Pharmacy 51.4; Estimated Glomerular Filt Rate > 60; Glucose Random 101 mg/dL (60-115); Potassium 3.3 mmol/L (3.3-5.1); Sodium 139 mmol/L (135-145); Total Protein 7.5 g/dL (6.5-8.0)
--- NOTE | 2022-12-02 15:31 | ED_ITS ---
HPI - General Adult General Chief complaint: General Medical Stated complaint: GEN WEAKNESS,RECENT UTI FROM [facility] Time Seen by Provider: 12/02/22 12:54 Source: patient Mode of arrival: ambulatory History of Present Illness HPI narrative: 77-year-old female who is returned to the emergency room after evaluation last night and at that time noted to have UTI. Patient is herself a poor historian and denies any acute complaints currently to include denial of shortness of breath/chest pain/abdominal discomfort. Related Data Home Medications Medication Instructions Recorded Confirmed amlodipine 10 mg tablet 1 tab PO DAILY 12/01/22 12/01/22 atorvastatin 20 mg tablet 1 tab PO BEDTIME 12/01/22 12/01/22 divalproex 500 mg tablet,delayed 1 tab PO DAILY 12/01/22 12/01/22 release famotidine 40 mg tablet 1 tab PO QPM 12/01/22 12/01/22 lorazepam 0.5 mg tablet 1 tab PO BID PRN Anxiety 12/01/22 12/01/22 losartan 100 mg tablet 1 tab PO DAILY 12/01/22 12/01/22 metoprolol succinate 25 mg 1 tab PO BEDTIME 12/01/22 12/01/22 tablet,extended release 24 hr olanzapine 7.5 mg tablet 1 tab PO BEDTIME 12/01/22 12/01/22 trazodone 50 mg tablet 2 tab PO BEDTIME 12/01/22 12/01/22 Previous Rx's Medication Instructions Recorded loperamide 2 mg capsule (Imodium 2 mg PO Q4H PRN loose stool #14 11/25/22 A-D) caps cefuroxime axetil 500 mg tablet 500 mg PO Q12H 5 days #10 tabs 12/01/22 Allergies Allergy/AdvReac Type Severity Reaction Status Date / Time propranolol [PROPRANOLOL] Allergy Unknown CONFUSSION, Verified 12/01/22 17:36 aggitation Sulfa (Sulfonamide Allergy Unknown HIVES Verified 12/01/22 17:36 Antibiotics) Review of Systems Review of Systems: Pertinent positives and negatives as stated in HPI [facility] Past Medical History Source: nursing notes reviewed Medical History Arthritis Bipolar disorder GERD (gastroesophageal reflux disease) Hyperlipidemia Hypertension 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 GENERAL: Well developed, well nourished, in no acute distress. HEAD: Normocephalic/atraumatic EYES: PERRLA, EOMI EARS: Ext canals without abnormality OROPHARYNX: no oral lesions noted, posterior pharynx clear, dry mucosa NECK: Supple, no adenopathy LUNGS: Normal breath sounds. No adventitious sounds or accessory muscle use. SpO2<100> CARDIOVASCULAR: Regular rate and rhythm without noted murmurs, no JVD or lower extremity edema. ABDOMEN: Soft, non-tender, non-distended with bowel sounds. MUSCULOSKELETAL: No tenderness, deformities, or effusions noted on gross inspection. EXTREMITIES: No cyanosis, clubbing or edema. SKIN: Inspection of the skin reveals no rashes NEUROLOGIC: Alert and oriented x 2. Strength and sensation to light touch were grossly intact x 4. Medical Decision Making Medical Decision Making [facility] Narrative: 77-year-old female with presentation with decreased ADLs, I reviewed the entire investigations and my interpretation is as patient continues to have a UTI for which she will continue to receive antibiotics. On further collateral information when nursing spoke with family members to care for this patient it appears that there is some difficulty with providing adequate care to this patie nt with her increasing requirements given the health conditions of her providers. I did discuss this with our case management team and patient will be evaluated for rehab. Patient placed in physician observation because the patient needed more time for rehab placement. At the time observation was started the patient's vital signs were stable, patient is alert, neuro: Nonfocal, CV RRR, lungs clear Differential Diagnosis Differential Diagnoses: The differential diagnosis associated with the presentation includes Please see the discussion above Consult Healthcare Provider Management of the patient was discussed with: Oral And Maxillofacial Surgery I discussed this case with the case management team and an order for physical therapy was also placed. Lab Data [facility] Lab Attestation statement: I reviewed the patient's lab results. Please see discussion above 12/02/22 14:25 12/02/22 14:25 Labs: Lab Results 12/02/22 12/02/22 Range/Units 14:25 14:25 WBC 7.6 (4.8-10.8) X10*3/uL RBC 4.02 L (4.20-5.50) X10*6/uL Hgb 12.0 (12.0-16.0) g/dl Hct 35.5 L (37.0-47.0) % MCV 88.3 (80.0-98.0) fL MCH 29.9 (27.0-33.0) pg MCHC 33.8 (31.0-35.0) g/dl RDW 14.3 (11.0-16.0) % Plt Count 224 (160-400) X10*3/uL MPV 10.1 (9.4-12.3) fL Immature Gran % (Auto) 0.4 (0.0-0.4) % Neut % (Auto) 81.2 H (45-73) % Lymph % (Auto) 11.2 L (20-40) % Becker % (Auto) 6.5 (2-11) % Eos % (Auto) 0.4 (0-4) % Baso % (Auto) 0.3 (0-2) % Lymph # (Auto) 0.9 L (1.2-4.9) X10*3/uL Becker # (Auto) 0.5 (0.1-1.2) X10*3/uL Eos # (Auto) 0.0 (0.0-0.4) X10*3/uL Baso # (Auto) 0.0 (0.0-0.2) X10*3/uL Abs Immat Gran (auto) 0.03 (0.00-0.03) X10*3/uL Absolute Neuts (auto) 6.2 (2.0-8.3) x10*3/uL Absolute Nucleated RBC 0.000 (0.0-0.012) X10*3/uL Nucleated RBC % (auto) 0.0 (0.0-0.2) /100WBC Sodium 139 (135-145) mmol/L Potassium 3.3 (3.3-5.1) mmol/L Chloride 106 (96-108) mmol/L Carbon Dioxide 21 L (22-29) mmol/L Anion Gap 15 (12-20) BUN 13 (9-16) mg/dL Creatinine 0.81 (0.5-1.4) mg/dL Estim Creat Clear Calc 51.4 Estimated GFR > 60 Random Glucose 101 (60-115) mg/dL Calcium 9.7 (8.4-10.2) mg/dL Total Bilirubin 0.3 (0.0-1.0) mg/dL AST 17 (5-31) U/L ALT < 6 (0-31) U/L Alkaline Phosphatase 64 (39-117) U/L Total Protein 7.5 (6.5-8.0) g/dL Albumin 4.1 (3.5-5.0) g/dL Independent Interpretation I performed an independent interpretation of an: EKG Interpretation: Normal sinus rhythm, HR-64, no STEMI, MN/QRS within normal limits, QTC is mildly prolonged at 505. External Record Review External record reviewed: Outpatient record and Prior outpatient labs Chronic Conditions Patient?s care impacted by: Hypertension Discharge Plan Discharge Clinical Impression: Acute UTI, Physical deconditioning Patient Disposition: Still a Patient Prescriptions: No Action atorvastatin 20 mg tablet 1 tab PO BEDTIME trazodone 50 mg tablet 2 tab PO BEDTIME famotidine 40 mg tablet 1 tab PO QPM divalproex 500 mg tablet,delayed release (DR/EC) 1 tab PO DAILY olanzapine 7.5 mg tablet 1 tab PO BEDTIME lorazepam 0.5 mg tablet 1 tab PO BID PRN (Reason: Anxiety) amlodipine 10 mg tablet 1 tab PO DAILY metoprolol succinate 25 mg tablet extended release 24 hr 1 tab PO BEDTIME losartan 100 mg tablet 1 tab PO DAILY cefuroxime axetil 500 mg tablet 500 mg PO Q12H 5 Days Qty: 10 0RF loperamide [Imodium A-D] 2 mg capsule 2 mg PO Q4H PRN (Reason: loose stool) Qty: 14 0RF Rx Instructions: administer after each loose stool until symptoms controlled; do not exceed 8 mg per 24 hrs
[2022-12-02 16:00] VITALS: BP 121/58; PULSE 67; RESP 16; TEMP 36.8; O2SAT 100
[2022-12-02 16:03] LABS: Appearance Urine Clear; Color Urine Yellow; Glucose Urine UA Negative (Negative); Leukocyte Esterase Urine Negative (Negative); Nitrite Urine Negative (Negative); PH 6.5 (5.0-9.0); Urine Blood Negative (Negative); Urine Ketones Trace mg/dL (Negative); Urine Protein Negative (Neg-Trace)
[2022-12-02] MEDS: cefTRIAXone sodium 1 GM in 0.9 % Sodium Chloride 50 ML IV (16:24)
[2022-12-02] MEDS: 0.9 % Sodium Chloride 1,000 ML 999 ML IV (16:26)
--- NOTE | 2022-12-02 17:19 | PHA.MEDREC ---
Addendum entered by Magaly Bermudez, [facility] 12/02/22 19:18: Spoke with Kalpana Matthews, pt's sister who went to her house and relayed information off of pt's mail order Rx bottles. Pt uses [facility] famotidine is on hold for 5 days while she is taking the cefuroxime Original Note: Pharmacy Consult ? Medication Reconciliation Pharmacy has completed the medication reconciliation. Pt verified the meds listed in claim history. She also keep bringing up Carbidopa/levodopa and primidone, which do not have any claim history. I spoke with pt's sister who will go over to Cally's house and look at her pill bottles and call us back at the pharmacy.
[2022-12-02 17:59] VITALS: BP 124/70; PULSE 72; RESP 16; TEMP 36.6; O2SAT 98
--- NOTE | 2022-12-02 18:00 | MHC.EDTECH ---
1800 rounding done ,pt was reposition and pure wick in place ,call hunter within reach,patient was assisted to call her sister .
[2022-12-02 18:16] LABS: Influenza A PCR NEGATIVE (Negative); Influenza B PCR NEGATIVE (Negative); Resp Syncy Virus RNA Qual PCR NEGATIVE (Negative); SARS COV2 PCR INHOUSE NEGATIVE (Negative)
[2022-12-02 19:12] VITALS: BP 181/98; PULSE 112; TEMP 36.9; O2SAT 100
--- NOTE | 2022-12-02 20:27 | MHC.CM.ED ---
Addendum entered by Elodia Frausto 12/02/22 21:27: PASRR level 1 completed. Pt screened out. Uploaded in [facility]. 23 referrals placed with facilities that contract with [facility]. CM will follow for PT assessment and bed offers. Original Note: CM received consult from Dr. Muhammad. Pt with general weakness, UTI, and increasing confusion over past week. This is patient's third time in the ED over the past week. Pt comes from assisted living at the [facility]. Pt tells me she has been living at the [facility] for about 12 years and loves it there. Pt has hx of parkinson's, GERD, HTN and bipolar. Pt tells CM she had diarrhea a week ago and since then hasn't felt well. Pt has 3 meals/day and says some help showering, otherwise, no help at the [facility]. States she manages her own meds, but admits she may need help. Pt is concerned because her sister has been ill. Sister/HCP Nena Ward ([phone]) tells CM that her sister was caring for her mother before she and then moved to the [facility] around 2010. States her sister is very independent at the [facility], eats with friends and pays her bills. States that this confusion and weakness is not at all like her sister. Pt diagnosed with UTI. Pt uses a walker, but has been more unsteady over the past week and has not been going to meals with her friends. Dr. Stoner and Dr. Mcfarlane also care for her sister. Nena Acuna tells CM that she does not think her sister has been taking her medications appropriately this past week. States her sister had an in-patient psych admission x1 in 2010. Has no daily psych services. [facility] x4. Awaiting PT evaluation. Pt agreeable to STR, but wants to return to the [facility]. Local referrals placed. CM to follow for discharge planning.
[2022-12-03 05:56] VITALS: BP 142/72; PULSE 64; RESP 16; TEMP 36.6; O2SAT 96
[2022-12-03 09:04] VITALS: BP 181/82; PULSE 80; TEMP 36.2; O2SAT 98
--- NOTE | 2022-12-03 09:33 | PC.NURSE ---
pharmacy to re check med rec per digital associate media director
[2022-12-03 10:12] VITALS: PULSE 118; O2SAT 97
[2022-12-03] MEDS: amLODIPine Besylate 10 MG TABLET PO (11:16)
[2022-12-03] MEDS: Losartan Potassium 50 MG TABLET 100 MG PO (11:16)
--- NOTE | 2022-12-03 12:02 | MHC.CM.ED ---
Addendum entered by Juli Serrano 12/03/22 13:46: Patient's sister/HCP, Nena Acuna, made aware via telephone. Original Note: Patient remains in ER overflow. Physical therapy eval completed. Short term rehab is recommended. Multiple bed offers made. Met with patient to discuss facility choices. Patient accepting bed at [facility]. Patient can leave at 230pm. [facility] booked. Med nec with chart. Patient, Kendy RN and [employer] aware. Continue to monitor for d/c needs.
--- NOTE | 2022-12-03 14:17 | PC.NURSE ---
pt to be leaving soon for STR
--- NOTE | 2022-12-03 14:57 | PC.NURSE ---
report given to zoila escobedo
== END 2022-12-03 14:58 | disposition skilled nursing facility (03) ==
PROVIDERS: Emergency Provider Student in an Organized Health Care Education/Training Program; PCP Family Medicine
DX: N39.0 Urinary tract infection, site not specified (principal); R53.1 Weakness; R26.81 Unsteadiness on feet; Z20.822 Contact with and (suspected) exposure to COVID-19; Z20.828 Contact with and (suspected) exposure to other viral communicable diseases; Z79.899 Other long term (current) drug therapy
CPT/HCPCS: 0241U; 36415; 80053; 81003; 85025; 87040; 93005; 96365; 97162; 99285; J0696

== ENCOUNTER 2022-12-19 17:18 | Outpatient (REF) | payer MEDICARE, SELFPAY ==
[2022-12-19 17:26] LABS: Appearance Urine Clear; Color Urine Yellow; Glucose Urine UA Negative (Negative); Leukocyte Esterase Urine Small (1+) (Negative); Nitrite Urine Negative (Negative); Specific Gravity - Urine 1.015 (1.005-1.025); UMIC TRIGGER UA YES; Urine Blood Negative (Negative); Urine Ketones Trace mg/dL (Negative); Urine Protein Negative (Neg-Trace)
[2022-12-19 17:32] LABS: Bacteria Urine None Seen (None Seen); Hyaline Casts Urine 0-2 /LPF (0-2); RBC Urine 0-2 /HPF (0-2); Squamous Epithelial Cell Urine 0-2 /HPF (0-2)
== END 2022-12-19 17:19 | disposition home or self-care (01) ==
LOC: HO.LNP 17:18
PROVIDERS: Visit Provider Family Medicine
DX: R41.0 Disorientation, unspecified (principal); N39.0 Urinary tract infection, site not specified
CPT/HCPCS: 81001; 87086

== ENCOUNTER 2022-12-25 12:39 | Observation (INO) | payer MEDICARE, SELFPAY ==
--- NOTE | ~2022-12-25 | CT_ITS ---
EXAMINATION: CT ABDOMEN AND PELVIS WITHOUT CONTRAST CLINICAL INFORMATION: Obstipation COMPARISON: None TECHNIQUE: Multidetector volumetric imaging was performed from the superior aspect of the liver through the pubic symphysis. Sagittal and coronal reformatted images were obtained on the technologist's workstation. This CT examination was performed using dose optimization techniques as appropriate, variously including the following: *Automated exposure control *Adjustment of mA and/or kV according to patient size (this includes techniques or standardized protocols for targeted exams where dose is matched to indication/reason for exam; i.e. extremities or head) *Use of iterative reconstruction technique DLP: 499 mGy-cm FINDINGS: LUNG BASES: The visualized lung bases are unremarkable. LIVER, GALLBLADDER, AND BILIARY TREE: The liver is normal in size, shape, and attenuation. No focal hepatic lesion or biliary ductal dilatation is present. The gallbladder has been removed. PANCREAS: Unremarkable. SPLEEN: Unremarkable. ADRENAL GLANDS: Unremarkable. KIDNEYS AND URETERS: The kidneys are normal in size, shape, and attenuation. No hydronephrosis, hydroureter, or calculi seen. No perinephric stranding. BLADDER: Unremarkable. GASTROINTESTINAL TRACT: There is a large amount of stool in the colon. The colon is slightly dilated down to the rectum suggestive of severe constipation and fecal impaction. There is wall thickening of the distal colon and stranding of the surrounding fat questionable for stercoral colitis related to chronic obstruction. There is a small amount of fluid in the presacral space. There is diverticulosis of the colon. No evidence of diverticulitis. Small bowel is unremarkable. The appendix is unremarkable. The stomach is unremarkable. ABDOMINAL WALL: No significant hernia is appreciated. LYMPH NODES: Normal. VASCULAR: Unremarkable. PELVIC VISCERA: Uterus appears to have been removed. No pelvic mass. CT/CT abdomen pelvis wo IV con OSSEOUS STRUCTURES: Degenerative changes of the spine. IMPRESSION: Severe constipation and fecal impaction. Mild wall thickening of the distal colon and stranding of the surrounding fat and small amount of fluid in the presacral space. Findings are questionable for stercoral colitis related to chronic constipation. Fleischner guidelines were followed.
[2022-12-25 12:45] VITALS: BP 128/64; PULSE 74; O2SAT 96
[2022-12-25 12:50] VITALS: BP 105/42; PULSE 71; RESP 18; O2SAT 96; BMI 28.9
--- NOTE | 2022-12-25 13:19 | ED_ITS ---
HPI - Abdominal Pain General Chief Complaint: General Medical Stated Complaint: From SNF, no BM x 2 weeks per EMS Time Seen by Provider: 12/25/22 12:47 Source: patient and EMS Mode of arrival: EMS Limitations: no limitations History of Present Illness HPI narrative: 77yoF who currently resides at [facility] who has a PMHx of tremor due to multiple drugs, hypertension, hyperlipidemia, GERD, arthritis and bipolar disorder who is presenting to the ER with complaints of not having a bowel movement/constipation for the past 2 weeks. She reports that her provider started her on MiraLax and she took 1 dose yesterday and another dose today although no symptomatic relief. She reports she is having some rectal pain. Otherwise she denies any fevers, dizziness, headaches, chest pain or shortness of breath, nausea/vomiting, abdominal pain, back pain, flank pain, dysuria, hematuria, recent rectal trauma or intercourse, black or bloody stools, lower extremity edema or calf tenderness or any other symptoms complaints or concerns at this time. MD elicited complaint: other (Unable to have a bowel movement) Pertinent past history: constipation Onset (ago): week(s) (2) Pain Consistency: constant Location: none Exacerbating factors: bowel movement Relieving factors: nothing Associated symptoms: denies other symptoms Treatments prior to arrival: other (Two doses of MiraLax yesterday and today) Related Data Home Medications Medication Instructions Recorded Confirmed amlodipine 10 mg tablet 1 tab PO DAILY 12/01/22 12/02/22 atorvastatin 20 mg tablet 1 tab PO BEDTIME 12/01/22 12/02/22 divalproex 500 mg tablet,delayed 1 tab PO BEDTIME 12/01/22 12/02/22 release famotidine 40 mg tablet 1 tab PO DAILY@1700 12/01/22 12/02/22 lorazepam 0.5 mg tablet 1 tab PO BID PRN Anxiety 12/01/22 12/02/22 losartan 100 mg tablet 1 tab PO DAILY 12/01/22 12/02/22 metoprolol succinate 25 mg 1 tab PO BEDTIME 12/01/22 12/02/22 tablet,extended release 24 hr olanzapine 7.5 mg tablet 1 tab PO BEDTIME 12/01/22 12/02/22 trazodone 50 mg tablet 2 tab PO BEDTIME 12/01/22 12/02/22 carbidopa 10 mg-levodopa 100 mg 2 tab PO QID 12/02/22 12/02/22 tablet primidone 50 mg tablet 50 mg PO BEDTIME 12/02/22 12/02/22 Previous Rx's Medication Instructions Recorded cefuroxime axetil 500 mg tablet 500 mg PO Q12H 5 days #10 tabs 12/01/22 lorazepam 0.5 mg tablet 0.5 mg PO BID PRN anxiety #7 tabs 12/03/22 Allergies Allergy/AdvReac Type Severity Reaction Status Date / Time propranolol [PROPRANOLOL] Allergy Unknown CONFUSSION, Verified 12/25/22 12:43 aggitation Sulfa (Sulfonamide Allergy Unknown HIVES Verified 12/25/22 12:43 Antibiotics) Review of Systems Review of Systems Constitutional : No Fever, No Chills, No Night Sweats, No Fatigue, No Malaise Cardiovascular : No Chest Pain, No SOB Respiratory : No Cough, No Sputum, No Wheezing, No Dyspnea Gastrointestinal : + constipation, No Nausea, No Vomiting, No Diarrhea, No abdominal Pain, No Hematochezia, No Melena Genitourinary : No irregular bleeding, No Dysuria, No Urinary Frequency, No Hematuria,No Urinary Incontinence, No Urgency, No Flank Pain Musculoskeletal : No joint pain, No Myalgias, No Joint Swelling Skin : No Skin Lesions, No rash Neuro : No Weakness, No Numbness, No Paresthesias, No Loss of Consciousness, No Dizziness, No Headache Heme/Lymph: No Lymphadenopathy Endocrine : No Temperature Intolerance Yes all other systems are reviewed and are negative PMFSH Past Medical History Attestation statement: The following information was validated with the patient. Source: old records reviewed and nursing notes reviewed Medical History Arthritis Bipolar disorder GERD (gastroesophageal reflux disease) Hyperlipidemia Hypertension 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 Social History Social History Alcohol intake: never Advance Directives: Yes Advance Directives on File: Yes Advance Directives Date on File: 12/03/22 Physical Exam ED Vital Signs: Vital Signs - 24 hr 12/25/22 12:50 Pulse Rate 71 Respiratory Rate 18 Blood Pressure 105/42 L Pulse Oximetry 96 Oxygen Delivery Method Room Air BMI result Body Mass Index 28.9 Vital signs reviewed blood pressure 105/42. Otherwise all other vitals are within normal limits. Appearance: Alert. Oriented X3. No acute distress. Head: Normal external exam. Normocephalic. Eyes: PERRLA. EOMI. Conjunctiva and sclera normal. Eyelids normal. ENT: Pharynx normal. Uvula midline. Moist mucous membranes. No trismus noted. No drooling noted. No muffled voice noted. Neck: Normal inspection. Neck supple. FROM. No adenopathy. No meningeal signs. CVS: Normal heart rate and rhythm. Heart sound normal. No murmurs noted. Pulses normal throughout. Respiratory: No respiratory distress. Painless inspiration. Breath sounds normal. No wheezes/rales/rhonchi noted. Chest nontender. No accessory muscle usage noted or decreased air movement noted. Abdomen: Soft and nontender. Nondistended. No guarding. No rigidity. Bowel sounds normal in all 4 quadrants. No distention noted. No organomegaly noted. No visible injury noted. No rebound tenderness. Negative Rovsing sign. Negative obturator's sign. Negative psoas sign. Negative Cunningham sign. Back: No CVA tenderness. Full range of motion noted. Skin: Skin warm and dry. Normal skin color. Normal skin turgor. No rashes/lesions/lacerations noted. Extremities: Extremities exhibit normal range of motion. Extremities nontender. Neuro: Oriented X 3. No motor deficit. No sensory deficit. Reflexes normal. Normal steady gait. CN's II-XII intact bilaterally Course Course Course Narrative: 12:50pm - 77yoF who currently resides at [facility] who has a PMHx of tremor due to multiple drugs, hypertension, hyperlipidemia, GERD, arthritis and bipolar disorder who is presenting to the ER with complaints of not having a bowel movement/constipation for the past 2 weeks. She reports that her provider started her on MiraLax and she took 1 dose yesterday and another dose today although no symptomatic relief. She reports she is having some rectal pain. Patient presenting with symptoms consistent with constipation. Presentation not consistent with acute bowel obstruction caused by tumor, stricture, hernia, adhesion, volvulus or fecal impaction. Low suspicion for etiology related to new medications including opiates, antipsychotics, anticholinergics, antacids, or antihistamines. Presentation not consistent with acute anorectal disorders. Low suspicion for chronic causes of constipation including hypothyroidism or electrolyte disorders. Presentation not consistent with other acute, emergent causes of constipation at this time. Plan: Labs, UA, CT scan abdomen pelvis without IV contrast. Reevaluation(s) Reevaluation #1: Labs reviewed - H&H of 9.11/29.1 this has dropped within 3 weeks. - Sodium 133. - Calcium 8.1. - Total protein 5.8. - Albumin 3.1. Otherwise all other labs are within normal limits. UA revealed a trace of leukocytes negative nitrates although patient denies any dysuria therefore will wait for culture will not start on any antibiotics at this time. CT scan abdomen pelvis revealed severe constipation and fecal impaction with chronic constipation/obstruction. Patient now status post fecal disimpaction I used 2 Fleet enemas and moderate amount of brown bloody stool was removed. Patient tolerated procedure well. No complications. Although due to patient having anemia and having rectal bleed ing patient will need to be admitted for further evaluation treatment. Patient understands agrees with this plan. Dr. Choudhary to admit at this time. Time: 15:21 Medical Decision Making Lab Data MDM Lab Attestation statement: I reviewed the patient's lab results. 12/25/22 13:38 12/25/22 13:38 Labs: Lab Results 12/25/22 12/25/22 12/25/22 Range/Units 13:38 13:38 14:22 WBC 4.8 (4.8-10.8) X10*3/uL RBC 3.04 L D (4.20-5.50) X10*6/uL Hgb 9.1 L D (12.0-16.0) g/dl Hct 27.1 L D (37.0-47.0) % MCV 89.1 (80.0-98.0) fL MCH 29.9 (27.0-33.0) pg MCHC 33.6 (31.0-35.0) g/dl RDW 14.1 (11.0-16.0) % Plt Count 188 (160-400) X10*3/uL MPV 10.6 (9.4-12.3) fL Immature Gran % (Auto) 0.2 (0.0-0.4) % Neut % (Auto) 64.7 (45-73) % Lymph % (Auto) 21.1 (20-40) % [place] % (Auto) 12.8 H (2-11) % Eos % (Auto) 0.6 (0-4) % Baso % (Auto) 0.6 (0-2) % Lymph # (Auto) 1.0 L (1.2-4.9) X10*3/uL [place] # (Auto) 0.6 (0.1-1.2) X10*3/uL Eos # (Auto) 0.0 (0.0-0.4) X10*3/uL Baso # (Auto) 0.0 (0.0-0.2) X10*3/uL Abs Immat Gran (auto) 0.01 (0.00-0.03) X10*3/uL Absolute Neuts (auto) 3.1 (2.0-8.3) x10*3/uL Absolute Nucleated RBC 0.000 (0.0-0.012) X10*3/uL Nucleated RBC % (auto) 0.0 (0.0-0.2) /100WBC Sodium 133 L (135-145) mmol/L Potassium 4.1 D (3.3-5.1) mmol/L Chloride 106 (96-108) mmol/L Carbon Dioxide 20 L (22-29) mmol/L Anion Gap 11 L (12-20) BUN 12 (9-16) mg/dL Creatinine 0.69 (0.5-1.4) mg/dL Estim Creat Clear Calc 64.3 Estimated GFR > 60 Random Glucose 98 (60-115) mg/dL Calcium 8.1 L D (8.4-10.2) mg/dL Magnesium 1.8 (1.6-2.6) mg/dL Total Bilirubin 0.2 (0.0-1.0) mg/dL AST 12 (5-31) U/L ALT < 6 (0-31) U/L Alkaline Phosphatase 44 (39-117) U/L Total Protein 5.8 L (6.5-8.0) g/dL Albumin 3.1 L (3.5-5.0) g/dL TSH 0.98 (0.32-4.0) uIU/mL Urine Color Yellow Urine Appearance Clear Urine pH 6.0 (5.0-9.0) Ur Specific [place] 1.015 (1.005-1.025) Urine Protein Negative (Neg-Trace) mg/dL Urine Glucose (UA) Negative (Negative) mg/dL Urine Ketones Trace (Negative) mg/dL Urine Blood Negative (Negative) Urine Nitrite Negative (Negative) Ur Leukocyte Esterase Trace H (Negative) Urine RBC 0-2 (0-2) /HPF Urine WBC 0-5 (0-5) /HPF Ur Squamous Epith Cells 0-2 (0-2) /HPF Urine Bacteria None Seen (None Seen) Hyaline Casts 0-2 (0-2) /LPF Independent Interpretation I performed an independent interpretation of an: CT Scan (CT scan results reviewed by myself and discussed with patient she understands results) Radiology Impression Discussion of test interpretation with radiology: I have reviewed the radiologist's reading. Radiologist Impression: FINDINGS: LUNG BASES: The visualized lung bases are unremarkable.? LIVER, GALLBLADDER, AND BILIARY TREE: The liver is normal in size, shape, and attenuation. No focal hepatic lesion or biliary ductal dilatation is present. The gallbladder has been removed. PANCREAS: Unremarkable.? SPLEEN: Unremarkable.? ADRENAL GLANDS: Unremarkable.? KIDNEYS AND URETERS: The kidneys are normal in size, shape, and attenuation. No hydronephrosis, hydroureter, or calculi seen. No perinephric stranding. ? BLADDER: Unremarkable.? GASTROINTESTINAL TRACT: There is a large amount of stool in the colon. The colon is slightly dilated down to the rectum suggestive of severe constipation and fecal impaction. There is wall thickening of the distal colon and stranding of the surrounding fat questionable for stercoral colitis related to chronic obstruction. There is a small amount of fluid in the presacral space. There is diverticulosis of the colon. No evidence of diverticulitis. Small bowel is unremarkable. The appendix is unremarkable. The stomach is unremarkable.? ABDOMINAL WALL: No significant hernia is appreciated.? LYMPH NODES: Normal. VASCULAR: Unremarkable. PELVIC VISCERA: Uterus appears to have been removed. No pelvic mass.? CT/CT abdomen pelvis wo IV con OSSEOUS STRUCTURES: Degenerative changes of the spine. IMPRESSION: Severe constipation and fecal impaction. Mild wall thickening of the distal colon and stranding of the surrounding fat and small amount of fluid in the presacral space. Findings are questionable for stercoral colitis related to chronic constipation. ? Fleischner guidelines were followed. Independent Historian Clinical information obtained from an independent historian. History obtained from or confirmed by: EMS External Record Review External record reviewed: Inpatient record, Office record, Outpatient record, Prior outpatient labs, Prior outpatient radiology, Primary care record and Outside ED record All patient's record reviewed that was in our system Medications Administered Discontinued Medications Generic Name Dose Route Start Last Admin Trade Name Freq PRN Reason Stop Dose Admin Mineral Oil 133 ml 12/25/22 14:55 12/25/22 15:01 Mineral Oil Enema 133 Ml Enema [place] 12/25/22 14:56 133 ml ONCE ONE Administration Mineral Oil 133 ml 12/25/22 14:56 12/25/22 15:01 Mineral Oil Enema 133 Ml Enema [place] 12/25/22 14:57 133 ml ONCE ONE Administration Critical Care Time Critical Care Time Critical Care Time: Yes Total Critical Care Time: 60 Attestation: I personally attest to this time spent taking care of the patient Discharge Plan Discharge Clinical Impression: Fecal impaction, Acute GI bleeding, Anemia Patient Disposition: Admitted As Inpatient Prescriptions: No Action atorvastatin 20 mg tablet 1 tab PO BEDTIME trazodone 50 mg tablet 2 tab PO BEDTIME famotidine 40 mg tablet 1 tab PO DAILY@1700 Rx Instructions: on hold until pt finishes 5 days of cefuroxime divalproex 500 mg tablet,delayed release (DR/EC) 1 tab PO BEDTIME olanzapine 7.5 mg tablet 1 tab PO BEDTIME lorazepam 0.5 mg tablet 1 tab PO BID PRN (Reason: Anxiety) amlodipine 10 mg tablet 1 tab PO DAILY metoprolol succinate 25 mg tablet extended release 24 hr 1 tab PO BEDTIME losartan 100 mg tablet 1 tab PO DAILY cefuroxime axetil 500 mg tablet 500 mg PO Q12H 5 Days Qty: 10 0RF primidone 50 mg Tablet 50 mg PO BEDTIME carbidopa-levodopa 10-100 mg Tablet 2 tab PO QID lorazepam 0.5 mg tablet 0.5 mg PO BID PRN (Reason: anxiety) Qty: 7 0RF
[2022-12-25 13:43] LABS: MANUAL DIFF FLAG NO
[2022-12-25 13:45] LABS: Basophils Percent Auto 0.6 % (0-2); Eosinophils Percent Auto 0.6 % (0-4); Hematocrit 27.1 % (37.0-47.0); Hemoglobin 9.1 g/dl (12.0-16.0); Imm Gran Abs Auto 0.01 X10*3/uL (0.00-0.03); Imm Gran Pct Auto 0.2 % (0.0-0.4); Lymphocytes Percent Auto 21.1 % (20-40); Mean Corpuscular HGB Conc 33.6 g/dl (31.0-35.0); Mean Corpuscular Hemoglobin 29.9 pg (27.0-33.0); Mean Corpuscular Volume 89.1 fL (80.0-98.0); Mean Platelet Volume 10.6 fL (9.4-12.3); Monocytes Absolute Auto 0.6 X10*3/uL (0.1-1.2); Monocytes Percent Auto 12.8 % (2-11); Neutrophils Absolute Auto 3.1 x10*3/uL (2.0-8.3); Neutrophils Percent Auto 64.7 % (45-73); Platelet Count 188 X10*3/uL (160-400); Red Blood Count 3.04 X10*6/uL (4.20-5.50); Red Cell Distribution Width 14.1 % (11.0-16.0); White Blood Count 4.8 X10*3/uL (4.8-10.8)
[2022-12-25 14:21] LABS: Alanine Aminotransferase < 6 U/L (0-31); Albumin Level 3.1 g/dL (3.5-5.0); Alkaline Phosphatase 44 U/L (39-117); Anion Gap 11 (12-20); Aspartate Amino Transferase 12 U/L (5-31); Bilirubin Total 0.2 mg/dL (0.0-1.0); Blood Urea Nitrogen 12 mg/dL (9-16); Calcium 8.1 mg/dL (8.4-10.2); Carbon Dioxide 20 mmol/L (22-29); Chloride 106 mmol/L (96-108); Creatinine Clr Calc Pharmacy 64.3; Estimated Glomerular Filt Rate > 60; Glucose Random 98 mg/dL (60-115); Magnesium 1.8 mg/dL (1.6-2.6); Potassium 4.1 mmol/L (3.3-5.1); Sodium 133 mmol/L (135-145); Total Protein 5.8 g/dL (6.5-8.0)
[2022-12-25 14:25] LABS: TSH reflex Free T4 0.98 uIU/mL (0.32-4.0)
[2022-12-25 14:32] LABS: Appearance Urine Clear; Color Urine Yellow; Glucose Urine UA Negative (Negative); Leukocyte Esterase Urine Trace (Negative); Nitrite Urine Negative (Negative); Specific Gravity - Urine 1.015 (1.005-1.025); UMIC TRIGGER UACC YES; Urine Blood Negative (Negative); Urine Ketones Trace mg/dL (Negative); Urine Protein Negative (Neg-Trace)
[2022-12-25 14:36] LABS: Bacteria Urine None Seen (None Seen); Hyaline Casts Urine 0-2 /LPF (0-2); RBC Urine 0-2 /HPF (0-2); Squamous Epithelial Cell Urine 0-2 /HPF (0-2); WBC Urine 0-5 /HPF (0-5)
[2022-12-25] MEDS: Mineral OiL enema 133 ML ENEMA PR ×2 (15:01)
[2022-12-25 15:48] LABS: OBS Int Ctl Valid YES; OBS1 POSITIVE (NEGATIVE)
[2022-12-25] MEDS: 0.9 % Sodium Chloride 1,000 ML 999 ML IVCONT (16:02)
[2022-12-25 16:29] LABS: COVID-19 Test Negative (Negative); IDNOW Serial# 9DB6401D
--- NOTE | 2022-12-25 16:38 | P.HPHOSP_ITS ---
History of Present Illness Date of Service: 12/25/22 Attending physician on admission: Jim Choudhary Chief Complaint: Constipation Pt is a 77-year-old female resident of [facility] independent living [facility] with a PMH significant for?bipolar disorder, tardive dyskinesia, HTN, HLD, GERD, and chronic constipation who presents to the ED with?with constipation for the past 2 weeks. Patient states that her last bowel movement was over 2 weeks ago. Patient has chronic constipation, normally has 2-3 bowel movements per week. Patient saw PCP earlier this week and started on MiraLax yesterday. Has taken one dose yesterday and one dose today with no effect. Pt notes rectal soreness x1 week, and has new rectal soreness s/p disimpaction and enemas, rated 3/10. Denies hemtachezia, melena. No fever, chills, nausea, vomiting, abdominal pain. Denies polyuria or dysuria. No chest pain/pressure, palpitations. Denies shortness of breath. In the ED labs were significant for no leukocytosis, H&H of 9.1/27.1. Stool positive for occult blood. UA negative for UTI. CT?of abdomen/pelvis showed severe constipation and fecal impaction with findings questionable for stercoral colitis related to chronic constipation. Pt was treated with 2 Fleet enemas, which resulted in the removal of a moderate amount of brown and bloody stool. Pt will be admitted to the hospital on observation for further workup evaluation constipation, anemia, and rectal pain. 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 Social History Alcohol intake: never Advance Directives: Yes Advance Directives on File: Yes Advance Directives Date on File: 12/03/22 Meds Allergies Allergy/AdvReac Type Severity Reaction Status Date / Time propranolol [PROPRANOLOL] Allergy Unknown CONFUSSION, Verified 12/25/22 12:43 aggitation Sulfa (Sulfonamide Allergy Unknown HIVES Verified 12/25/22 12:43 Antibiotics) Active Medications: Current Medications Pantoprazole Sodium 80 mg/ (Sodium Chloride) 100 mls @ 10 mls/hr IV .Q10H [facility] Pharmacy Consult (Consult Rx Perform Med Rec) 1 each MISCELLANE ONCE PRN PRN Reason: Consult order Home Medications Medication Instructions Recorded Confirmed Last Taken Type amlodipine 10 mg tablet 1 tab PO DAILY 12/01/22 12/25/22 Unknown History atorvastatin 20 mg tablet 1 tab PO BEDTIME 12/01/22 12/25/22 Unknown History divalproex 500 mg tablet,delayed 1 tab PO BEDTIME 12/01/22 12/25/22 Unknown History release famotidine 40 mg tablet 1 tab PO DAILY@1700 12/01/22 12/25/22 Unknown History losartan 100 mg tablet 1 tab PO DAILY 12/01/22 12/25/22 Unknown History metoprolol succinate 25 mg 1 tab PO BEDTIME 12/01/22 12/25/22 Unknown History tablet,extended release 24 hr trazodone 50 mg tablet 50 mg PO BEDTIME 12/01/22 12/25/22 Unknown History carbidopa 10 mg-levodopa 100 mg 1 tab PO QID 12/02/22 12/25/22 Unknown History tablet primidone 50 mg tablet 50 mg PO BID 12/02/22 12/25/22 Unknown History glucosamine sulfate 500 mg tablet 1,000 mg PO BID 12/25/22 12/25/22 Unknown History (Glucosamine) olanzapine 5 mg tablet 5 mg PO DAILY 12/25/22 12/25/22 Unknown History Physical Exam Vital Signs and Narrative: Vital Signs: Last Vital Signs Pulse 71 12/25/22 12:50 Resp 18 12/25/22 12:50 BP 105/42 L 12/25/22 12:50 Pulse Ox 96 12/25/22 12:50 O2 Del Method 12/25/22 12:50 BMI result Body Mass Index 28.9 Constitutional: Alert, in no acute distress. Mental Status: Oriented to person, place and time. Eyes: Pupils are equal, round, and reactive to light. Ear, Nose, and Throat: Oropharynx clear, mucous membranes moist. Ears and nose without deformities. Trachea midline. Respiratory: Clear to auscultation bilaterally. No wheezing, rales, or rhonchi. Cardiovascular: S1, S2 regular. No murmurs, rubs, or gallops. Gastrointestinal: Abdomen soft, non-tender, non-distended. Normal bowel sounds. Neurologic: Cranial nerves II-XII are grossly intact. No focal neurological deficits. Moves all extremities spontaneously. Skin: No rashes or lesions noted. Musculoskeletal: No cyanosis or clubbing. Extremities: Mild trace edema bilaterally. Psychiatric: Normal mood and affect. Results Labs 12/25/22 13:38 12/25/22 13:38 Labs: Laboratory Results - last 24 hr 12/25/22 12/25/22 12/25/22 13:38 13:38 14:22 MCV 89.1 MCH 29.9 MCHC 33.6 RDW 14.1 Plt Count 188 MPV 10.6 Immature Gran % (Auto) 0.2 Neut % (Auto) 64.7 Lymph % (Auto) 21.1 [place] % (Auto) 12.8 H Eos % (Auto) 0.6 Baso % (Auto) 0.6 Lymph # (Auto) 1.0 L [place] # (Auto) 0.6 Eos # (Auto) 0.0 Baso # (Auto) 0.0 Abs Immat Gran (auto) 0.01 Absolute Neuts (auto) 3.1 Absolute Nucleated RBC 0.000 Nucleated RBC % (auto) 0.0 Anion Gap 11 L Estim Creat Clear Calc 64.3 Estimated GFR > 60 Random Glucose 98 Calcium 8.1 L D Magnesium 1.8 Total Bilirubin 0.2 AST 12 ALT < 6 Alkaline Phosphatase 44 Total Protein 5.8 L Albumin 3.1 L TSH 0.98 Urine Color Yellow Urine Appearance Clear Urine pH 6.0 Ur Specific Welcome 1.015 Urine Protein Negative Urine Glucose (UA) Negative Urine Ketones Trace Urine Blood Negative Urine Nitrite Negative Ur Leukocyte Esterase Trace H Urine RBC 0-2 Urine WBC 0-5 Ur Squamous Epith Cells 0-2 Urine Bacteria None Seen Hyaline Casts 0-2 Stool Occult Blood COVID-19 (TOM) COVID-19 Clin Com 12/25/22 12/25/22 15:37 15:37 MCV MCH MCHC RDW Plt Count MPV Immature Gran % (Auto) Neut % (Auto) Lymph % (Auto) [place] % (Auto) Eos % (Auto) Baso % (Auto) Lymph # (Auto) [place] # (Auto) Eos # (Auto) Baso # (Auto) Abs Immat Gran (auto) Absolute Neuts (auto) Absolute Nucleated RBC Nucleated RBC % (auto) Anion Gap Estim Creat Clear Calc Estimated GFR Random Glucose Calcium Magnesium Total Bilirubin AST ALT Alkaline Phosphatase Total Protein Albumin TSH Urine Color Urine Appearance Urine pH Ur Specific Welcome Urine Protein Urine Glucose (UA) Urine Ketones Urine Blood Urine Nitrite Ur Leukocyte Esterase Urine RBC Urine WBC Ur Squamous Epith Cells Urine Bacteria Hyaline Casts Stool Occult Blood POSITIVE COVID-19 (TOM) Negative COVID-19 Clin Com See Note Imaging Radiologist's Impressions: Impressions Abdomen/Pelvis CT 12/25/22 13:38 OSSEOUS STRUCTURES: Degenerative changes of the spine. IMPRESSION: Severe constipation and fecal impaction. Mild wall thickening of the distal colon and stranding of the surrounding fat and small amount of fluid in the presacral space. Findings are questionable for stercoral colitis related to chronic constipation. Fleischner guidelines were followed. Assessment and Plan (1) Anemia: Status: Acute (2) Fecal impaction: Status: Acute Plan Pt is a 77-year-old female resident of [facility] independent living [facility] with a PMH significant for?bipolar disorder, tardive dyskinesia, HTN, HLD, GERD, and chronic constipation who presents to the ED with?with constipation for the past 2 weeks. Pt received manual disimpaction and Fleet enemas in ED. Pt will be admitted to the hospital on observation for further workup evaluation constipation, anemia, and rectal pain Constipation Pt constipated x2 weeks CT showed severe constipation and fecal impaction Manually disimpacted and given fleet enema x2 in ED with moderate amount of blo zeynep stool removed Miralax, lactulose Encourage fluids Clear liquid diet GI consult Anemia Patient's H&H 9.1/27.1, slightly below patient's baseline Stool positive for occult blood Rectal bleeding likely secondary to fecal impaction, less likely to acute GI bleed GI consult Pneumatic boots for DVT prophylactics Monitor CBC Rectal pain Likely secondary to enemas and disimpaction Analgesics for pain management Bipolar disorder Continued divalproexRadhan is a being Tardive dyskinesia Continue primidone, carbidopa-levodopa GERD Continue famotidine HTN Continue amlodipine, losartan, metoprolol HLD Continue atorvastatin Insomnia Continue trazodone Full Code Attending:?Dr. Choudhary DVT Prophylaxis:Pneumatic boots Pt will be admitted to the hospital on observation for further workup evaluation constipation, anemia, and rectal pain Time Spent With Patient Time: Total time managing care of this patient today ____ minutes. Quality Stroke Does the patient have a stroke diagnosis?: No VTE Prior VTE?: No VTE Risk Level:: Medical - moderate - high VTE Device Contraindication: N/A - Device Ordered VTE Drug Contraindication: Treatment Not Indicated
[2022-12-25] MEDS: Pantoprazole Sodium 80 MG in 0.9 % Sodium Chloride 80 ML 10 MG IV (16:48)
[2022-12-25] MEDS: Pantoprazole Sodium 40 MG/10 ML VIAL 80 MG IVPUSH (16:48)
--- NOTE | 2022-12-25 17:19 | PHA.MEDREC ---
Pharmacy Consult ? Medication Reconciliation Pharmacy has completed the medication reconciliation. Med rec complete using list from SNF
[2022-12-25 17:23] VITALS: BP 153/67; PULSE 83; RESP 17; TEMP 36.7; O2SAT 96
--- NOTE | 2022-12-25 18:55 | P.EN_ITS ---
Event Note Date of Service: 12/25/22 Event Note: GI Consult-Full note dictated-History from patient, ER staff, and EMR. Imp: Chronic constipation with recent worsening and associated fecal impaction. She has had at least [address] Foley, most recently as of 06/2020. They have all been negative except for a tubular adenoma removed in 2019. She had some bleeding in relation to the disimpaction and probable component of some inflammation in the rectum and sigmoid colon from the constipa tion as seen on the CT scan. I don't think this is an UGI bleed. Presently her abdominal exam is benign. Her anemia may be at least partially related to blood loss, but currently no sign of ongoing bleeding. She appears very comfortable. Rec: Begin a bowel regimen with Miralax and Lactulose. Use enemas prn. She will need to go home on a daily bowel regimen as well. Her diet can be advanced tomorrow if things are stable. Check iron, B12, and Folate levels. I don't think she needs a Protonix infusion. I don't think she needs a colonoscopy nor upper endo at this time. Will follow with you. D/W patient in detail. Thanks. Time Spent With Patient Time: Total time managing care of this patient today ____ minutes.
--- NOTE | 2022-12-25 18:57 | PC.NURSE ---
RN-RN report given to ED Overflow, transport contacted.
[2022-12-25 19:33] VITALS: BP 176/72; PULSE 94; RESP 16; TEMP 36.6; O2SAT 100
--- NOTE | 2022-12-25 19:34 | MHC.EDTECH ---
THIS PCT JUST ASSUMED CARE OF PT ,PT WAS MOVED FROM STRETCHER TO HOSPITAL BED ,VITALS SIGN TAKEN ,WARM BLANKET GIVEN ,PT SAID SHE WAS COMFORTABLE .
[2022-12-25] MEDS: polyethylene glycoL 3350 17 GM POWD.PACK PO (19:55)
[2022-12-25] MEDS: Metoprolol Succinate ER 25 MG TAB.ER.24H PO (20:27)
[2022-12-25] MEDS: traZODone HCL 50 MG TABLET PO (20:27)
[2022-12-25] MEDS: Atorvastatin Calcium 20 MG TABLET PO (20:27)
[2022-12-25] MEDS: Divalproex Sodium 500 MG TABLET.DR PO (20:27)
[2022-12-25] MEDS: Lactulose 20 GM/30 ML SOLUTION PO (20:27)
[2022-12-25] MEDS: Primidone 50 MG TABLET PO (20:27)
[2022-12-25 21:05] VITALS: BP 163/71; PULSE 94; RESP 18; TEMP 36.3; O2SAT 99
--- NOTE | 2022-12-25 21:20 | PC.NURSE ---
Received pt. from EM. Pt. transferred into bed and was resting comfortably with no complaints at this time. Pt. medicated with miralax. Another dose was listed for only one hour later. Charted against this duplicate administrration. Pt. took all nighttime medications. Report called to Kajal on med-surge and pt. prepared for transfer.
[2022-12-25 23:59] VITALS: BP 150/69; PULSE 90; RESP 18; TEMP 37.2; O2SAT 94
[2022-12-26] MEDS: Acetaminophen 325 MG TABLET 650 MG PO (01:30)
[2022-12-26 06:36] LABS: Hematocrit 29.6 % (37.0-47.0); Hemoglobin 9.8 g/dl (12.0-16.0); Mean Corpuscular HGB Conc 33.1 g/dl (31.0-35.0); Mean Corpuscular Hemoglobin 29.4 pg (27.0-33.0); Mean Corpuscular Volume 88.9 fL (80.0-98.0); Mean Platelet Volume 11.1 fL (9.4-12.3); Platelet Count 222 X10*3/uL (160-400); Red Blood Count 3.33 X10*6/uL (4.20-5.50); Red Cell Distribution Width 13.9 % (11.0-16.0); White Blood Count 8.7 X10*3/uL (4.8-10.8)
--- NOTE | 2022-12-26 07:13 | CONS_ITS ---
DATE OF SERVICE: 12/25/2022 REASON FOR CONSULTATION: Constipation, rectal bleeding, and anemia. HISTORY OF PRESENT ILLNESS: The patient is a 77-year-old female, who describes a long-standing history of chronic constipation, but with recent worsening with significant problems over the past couple of weeks in which she was unable to have a bowel movement. However, during this time, she was able to eat comfortably and denies any nausea nor vomiting. She denies any significant heartburn nor dysphagia. She denies any abdominal pain, significant abdominal distention nor jaundice. She was not having any rectal bleeding up until today. In reviewing her records, she has had at least [address] Cahntal Foley, with the most recent one being in June 2020 with removal of a small tubular adenoma. The colonoscopies prior to that had all been negative. She has a notable family history of her father and sister having had colon cancer. She does not appear to be on any chronic blood thinners at home. Since arrival in the emergency room, she did have a couple of enemas which resulted in some bowel movements but also some bleeding. She was noticed to have a drop in her hemoglobin from a level of 12.0 on December 02 to 9.1 today. Her hemoglobin had been 10.9 earlier in November. Since the bleeding in relation to the enema, she has had no further bleeding. She has had no vomiting. She currently denies any abdominal pain. She was not on any regular bowel regimen at home. MEDICATIONS: Medications at home included amlodipine, atorvastatin, Sinemet, divalproex, famotidine, glucosamine, lorazepam, losartan, metoprolol, olanzapine, primidone, and trazodone. PAST MEDICAL HISTORY: Bipolar disease. Hypertension. Parkinson's disease. Cholecystectomy. Hysterectomy. Cataract surgery. She denies history of myocardial infarction, diabetes, stroke, lung disease nor kidney disease. She does appear to have some chronic anemia. Multiple colonoscopies as described above. SOCIAL HISTORY: She lives at [facility] in either assisted or independent living. She does not smoke and denies any significant amounts of alcohol. She is a . FAMILY HISTORY: Father and sister with colon cancer. REVIEW OF SYSTEMS: CONSTITUTIONAL: Other than constipation, she reports that she had been feeling fairly well at home with a good appetite. SKIN: No rash. No pruritus. CARDIAC: No chest pain. PULMONARY: No coughing or hemoptysis. GI: As above. URINARY: No dysuria. No hematuria. PHYSICAL EXAMINATION: GENERAL: The patient is a pleasant, alert, and comfortable appearing female. SKIN: Warm and dry. HEENT: Anicteric sclerae. NECK: Supple. CHEST: Clear. CARDIAC: Normal S1, S2. ABDOMEN: Soft, nondistended, nontender without mass. Bowel sounds are normal. EXTREMITIES: Without edema. LABORATORY DATA: White count 4.8, hemoglobin 9.1, MCV 89, platelets 188,000. Normal electrolytes other than sodium of 133. BUN 12 and creatinine 0.7. Normal liver function tests with albumin of 3.1. TSH 0.98. Stool was heme positive today. She did have a CT scan of the abdomen and pelvis this afternoon describing a large amount of stool in the colon, which appeared to be slightly dilated as well to the level of the rectum. There was some wall thickening of the distal colon and stranding of the surrounding fat questionable for some stercoral colitis in relation to the constipation. There was some diverticulosis, but no diverticulitis. There was no evidence of any bowel obstruction. IMPRESSION: Given the patient's clinical history, it appears that her baseline constipation has significantly worsened. This has resulted in her presentation with the inflammatory changes as seen on the CT scan and some resultant bleeding in relation to the disimpaction with enemas. At this point, she appears stable with a benign abdomen and no active bleeding. Her anemia seems to be more of a chronic condition as oppose to anything acute in relation to the blood loss. At this point, given all of her previous colonoscopies including the most recent one in 2019, I do not think a repeat colonoscopy is presently required. I think the important thing will be getting her started on a bowel regiment to facilitate some further bowel movements. She will need to be kept on a daily and regular bowel regimen once she is discharged home as well. I do not think her presentation is consistent with an upper gastrointestinal bleed and I will therefore stop her Protonix. I do not think endoscopy nor colonoscopy is required. I would check iron studies, B12, and folate levels in regard to the anemia. I think her diet could be advanced by tomorrow as long as things are stable. I did review all this in detail with her, particularly in regard to needing to stay on a regular bowel regimen once she is home to avoid further episodes of significant constipation. She was comfortable with this plan. Thank you for this consultation. MD CHANNING Jesus/ANDRÉS / [id number] MTDD
[2022-12-26 07:43] LABS: Anion Gap 15 (12-20); Blood Urea Nitrogen 7 mg/dL (9-16); Calcium 8.4 mg/dL (8.4-10.2); Carbon Dioxide 20 mmol/L (22-29); Chloride 104 mmol/L (96-108); Creatinine Clr Calc Pharmacy 67.2; Estimated Glomerular Filt Rate > 60; Glucose Random 83 mg/dL (60-115); Potassium 3.9 mmol/L (3.3-5.1); Sodium 135 mmol/L (135-145)
[2022-12-26 07:49] VITALS: BP 151/72; PULSE 82; RESP 18; TEMP 36.8; O2SAT 98
[2022-12-26] MEDS: amLODIPine Besylate 10 MG TABLET PO (07:49)
[2022-12-26] MEDS: Losartan Potassium 50 MG TABLET 100 MG PO (07:49)
[2022-12-26] MEDS: polyethylene glycoL 3350 17 GM POWD.PACK PO (07:49)
[2022-12-26] MEDS: Lactulose 20 GM/30 ML SOLUTION PO (07:49)
[2022-12-26] MEDS: OLANZapine 5 MG TABLET PO (07:50)
[2022-12-26] MEDS: 0.9 % Sodium Chloride Flush 3 ML SYRINGE IVFLUSH ×3 (07:50→20:21)
[2022-12-26] MEDS: Primidone 50 MG TABLET PO ×2 (07:50→20:21)
[2022-12-26 07:51] LABS: Iron 24 mcg/dL (30-160); Percent Iron Saturation 12 % (15-50); Total Iron Binding Capacity 207 mcg/dL (228-428); Unsaturated Iron Binding 183 ug/dL
[2022-12-26 08:08] LABS: Ferritin 192 ng/mL (10-250); Folate 2.5 ng/mL (> or = 4.0); Vitamin B12 264 pg/mL (200-900)
[2022-12-26] MEDS: Ferrous Sulfate 324 MG TABLET.DR PO ×2 (10:34→17:21)
[2022-12-26 11:55] VITALS: BP 141/63; PULSE 69; RESP 18; TEMP 36.8; O2SAT 96
--- NOTE | 2022-12-26 12:32 | MHC.CM.PN ---
Addendum entered by Antoinette Perez RN 12/26/22 12:35: PT VERIFIES PCP IS YOAV HARE, JUDIID VACC X4 AND ON FILE AND HCP/MOLST ON FILE FROM PREVIOUS VISIT. Original Note: IMM 12/26/22, EMR REVIEWED, PT ADMITTED W/CONSTIPATION. CM MET W/PT WHO REPORTS SHE LIVES AT THE [facility], USES A ROLLATER WALKER, HAS 3MEALS/DAY, CLEANING LADY ONCE A WEEK AND A MONITOR AND STORAGE BIN TENDER WHO ASSIST PT W/SHOWERS A FEW TIMES A WEEK, PT REPORTS SHE WILL NEED TRANSPORTATION HOME ONCE MEDICALLY CLEARED. D/C PLAN: RETURN TO [facility] W/CM TO SET UP TRANSPORT
[2022-12-26 15:25] VITALS: BP 140/60; PULSE 71; RESP 16; TEMP 36.4; O2SAT 98
--- NOTE | 2022-12-26 16:49 | HO.PM.IMPN ---
Subjective Subjective Date of Service: 12/27/22 Interval History: ?Constipation, ? gib Review of Systems no new bleed episode had 6 bm's Denies any chest pain or shortness of breath or abdominal pain or fever chills for Physical Exam Vital Signs: Vital Signs: Last Vital Signs Temp 97.5 F 12/26/22 15:25 Pulse 71 12/26/22 15:25 Resp 16 12/26/22 15:25 BP 140/60 H 12/26/22 15:25 Pulse Ox 98 12/26/22 15:25 O2 Del Method 12/26/22 11:55 BMI result Body Mass Index 28.9 Appearance: Alert.? Oriented X3.? not in distress.? cvs: rrr, [id number] , no murmur res: clear to auscultation ,no rhonchii or wheezing abd: no rebound or guarding ,nt, bs present. ext pulses present , no cyanosis . neuro: axo3 , nonfocal. Objective Data Active Medications Acetaminophen (Acetaminophen 325 Mg Tablet) 650 mg PO Q6H PRN PRN Reason: Pain, Mild (Pain Scale 1-3) Last Admin: 12/26/22 01:30 Dose: 650 mg Documented By: IVA Amlodipine Besylate (Amlodipine Besylate 10 Mg Tablet) 10 mg PO DAILY [facility]; Protocol Last Admin: 12/26/22 07:49 Dose: 10 mg Documented By: MARLA Atorvastatin Calcium (Atorvastatin Calcium 20 Mg Tablet) 20 mg PO BEDTIME [facility] Last Admin: 12/25/22 20:27 Dose: 20 mg Documented By: BRIANNA Carbidopa/Levodopa (Carbidopa/Levodopa 10/100 Tablet) 1 tab PO QID [facility] Last Admin: 12/26/22 13:36 Dose: 1 tab Documented By: PHAN Divalproex Sodium (Divalproex Sodium 500 Mg Tablet.) 500 mg PO BEDTIME [facility] Last Admin: 12/25/22 20:27 Dose: 500 mg Documented By: BRIANNA Famotidine (Famotidine 20 Mg Tablet) 40 mg PO DAILY@1700 [facility] Ferrous Sulfate (Ferrous Sulfate 324 Mg Tablet.) 324 mg PO BIDWM [facility] Last Admin: 12/26/22 10:34 Dose: 324 mg Documented By: MARLA Lactulose (Lactulose 20 Gm/30 Ml Solution) 20 gm PO BID [facility] Last Admin: 12/26/22 07:49 Dose: 20 gm Documented By: MARLA Lorazepam (Lorazepam 0.5 Mg Tablet) 0.5 mg PO BID PRN PRN Reason: anxiety Losartan Potassium (Losartan Potassium 50 Mg Tablet) 100 mg PO DAILY [facility]; Protocol Last Admin: 12/26/22 07:49 Dose: 100 mg Documented By: MARLA Metoprolol Succinate (Metoprolol Succinate Er 25 Mg Tab.Er.24h) 25 mg PO BEDTIME [facility]; Protocol Last Admin: 12/25/22 20:27 Dose: 25 mg Documented By: BRIANNA Olanzapine (Olanzapine 5 Mg Tablet) 5 mg PO DAILY [facility] Last Admin: 12/26/22 07:50 Dose: 5 mg Documented By: MARLA Ondansetron HCl (Ondansetron Hcl 4 Mg/2 Ml Vial) 4 mg IVPUSH Q8H PRN PRN Reason: Nausea and Vomiting Pharmacy Consult (Consult Rx Perform Med Rec) 1 each MISCELLANE ONCE PRN PRN Reason: Consult order Polyethylene Glycol (Polyethylene Glycol 3350 17 Gm Powd.Pack) 17 gm PO QID [facility] Last Admin: 12/26/22 13:30 Dose: Not Given Documented By: PHAN Non-Admin Reason: 3+ loose stools Primidone (Primidone 50 Mg Tablet) 50 mg PO BID [facility] Last Admin: 12/26/22 07:50 Dose: 50 mg Documented By: MARLA Sodium Chloride (0.9 % Sodium Chloride Flush 3 Ml Syringe) 3 ml IVFLUSH QSHIFT [facility] Last Admin: 12/26/22 07:50 Dose: 3 ml Documented By: MARLA Trazodone HCl (Trazodone Hcl 50 Mg Tablet) 50 mg PO BEDTIME [facility] Last Admin: 12/25/22 20:27 Dose: 50 mg Documented By: BRIANNA Labs 12/26/22 05:37 12/26/22 05:37 Labs: Laboratory Results - last 24 hr 12/26/22 12/26/22 12/26/22 05:37 05:37 05:37 MCV 88.9 MCH 29.4 MCHC 33.1 RDW 13.9 Plt Count 222 MPV 11.1 Absolute Nucleated RBC 0.000 Nucleated RBC % (auto) 0.0 Anion Gap 15 Estim Creat Clear Calc 67.2 Estimated GFR > 60 Random Glucose 83 Calcium 8.4 Iron 24 L TIBC 207 L % Saturation 12 L Unsat Iron Binding 183 Ferritin 192 Vitamin B12 264 Folate 2.5 L Assessment and Plan (1) Fecal impaction: Status: Acute (2) Acute GI bleeding: Status: Acute (3) Anemia: Status: Acute Plan 77-year-old female resident of [facility] with a PMH significant for?bipolar disorder, tardive dyskinesia, HTN, HLD, GERD, and chronic constipation who presents to the ED with?with constipation for the past 2 weeks. Pt received manual disimpaction and Fleet enemas in ED. Pt will be admitted to the hospital on observation for further workup evaluation constipation, anemia, and rectal pain Constipation Pt constipated x2 weeks CT showed severe constipation and fecal impaction Received enema,Miralax, lactulose Encourage fluids Adjusted to full liquid diet, GI consult appreciated. Anemia Patient's H&H 9.8/29.6, slightly below patient's baseline Stool positive for occult blood Rectal bleeding likely secondary to fecal impaction, less likely to acute GI bleed GI consult appreciated Monitor CBC Rectal pain Likely secondary to enemas and disimpaction Analgesics for pain management Bipolar disorder Continued divalproex, Josiane is a being Tardive dyskinesia Continue primidone, carbidopa-levodopa GERD Continue famotidine HTN Continue amlodipine, losartan, metoprolol HLD Continue atorvastatin Insomnia Continue trazodone Pneumatic boots for DVT prophylactics inpatient need:patient is now having multiple bm's ,will hold luxatives and moniter, gIB BLEED -need cbc moniterin and workup,gi follow up. Time Spent With Patient Time: Total time managing care of this patient today ____ minutes. Quality Stroke Does the patient have a stroke diagnosis?: No VTE Prior VTE?: No VTE Risk Level:: Medical - moderate - high VTE Device Contraindication: N/A - Device Ordered VTE Drug Contraindication: Treatment Not Indicated
[2022-12-26] MEDS: Famotidine 20 MG TABLET 40 MG PO (17:19)
[2022-12-26 19:21] VITALS: BP 141/65; PULSE 77; RESP 16; TEMP 36.4; O2SAT 98
[2022-12-26] MEDS: Metoprolol Succinate ER 25 MG TAB.ER.24H PO (20:21)
[2022-12-26] MEDS: traZODone HCL 50 MG TABLET PO (20:21)
[2022-12-26] MEDS: Divalproex Sodium 500 MG TABLET.DR PO (20:21)
[2022-12-26] MEDS: Atorvastatin Calcium 20 MG TABLET PO (20:21)
--- NOTE | 2022-12-26 21:25 | P.EN_ITS ---
Event Note Date of Service: 12/26/22 Event Note: GI-Course reviewed Having BM's, no report of bleeding, Hgb stable, Folate low at 2.5, Iron sat is low but Ferritin is WNL. Rec: Agree with advancing diet. Start Folate repletion(ordered). I ordered a celiac disease profile for the AM to R/O any malabsorption. Caution with po Iron in regard to constipation. Cut back Miralax to BID, continue Colace BID, and D/C Lactulose. 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 Please contact me if problems or questions. Thanks Time Spent With Patient Time: Total time managing care of this patient today ____ minutes.
[2022-12-26] MEDS: Folic Acid 1 MG TABLET PO (21:47)
[2022-12-26 23:31] VITALS: BP 135/59; PULSE 53; RESP 18; TEMP 37.1; O2SAT 99
[2022-12-27 03:35] VITALS: BP 156/76; PULSE 57; RESP 18; TEMP 37; O2SAT 96
[2022-12-27 06:39] LABS: MANUAL DIFF FLAG NO
[2022-12-27 06:57] LABS: Basophils Percent Auto 0.3 % (0-2); Eosinophils Absolute Auto 0.1 X10*3/uL (0.0-0.4); Eosinophils Percent Auto 2.1 % (0-4); Hemoglobin 10.8 g/dl (12.0-16.0); Imm Gran Abs Auto 0.02 X10*3/uL (0.00-0.03); Imm Gran Pct Auto 0.3 % (0.0-0.4); Lymphocytes Absolute Auto 1.5 X10*3/uL (1.2-4.9); Lymphocytes Percent Auto 24.1 % (20-40); Mean Corpuscular HGB Conc 32.7 g/dl (31.0-35.0); Mean Corpuscular Hemoglobin 29.2 pg (27.0-33.0); Mean Corpuscular Volume 89.2 fL (80.0-98.0); Mean Platelet Volume 11.2 fL (9.4-12.3); Monocytes Absolute Auto 0.7 X10*3/uL (0.1-1.2); Monocytes Percent Auto 11.4 % (2-11); Neutrophils Absolute Auto 3.7 x10*3/uL (2.0-8.3); Neutrophils Percent Auto 61.8 % (45-73); Platelet Count 169 X10*3/uL (160-400); White Blood Count 6.1 X10*3/uL (4.8-10.8)
[2022-12-27 07:50] VITALS: BP 145/67; PULSE 68; RESP 18; TEMP 36.8; O2SAT 97
[2022-12-27] MEDS: polyethylene glycoL 3350 17 GM POWD.PACK PO (08:36)
[2022-12-27] MEDS: 0.9 % Sodium Chloride Flush 3 ML SYRINGE IVFLUSH (08:36)
[2022-12-27] MEDS: Docusate Sodium 100 MG CAPSULE PO (08:37)
[2022-12-27] MEDS: Primidone 50 MG TABLET PO (08:37)
[2022-12-27] MEDS: amLODIPine Besylate 10 MG TABLET PO (08:37)
[2022-12-27] MEDS: Folic Acid 1 MG TABLET PO (08:37)
[2022-12-27] MEDS: OLANZapine 5 MG TABLET PO (08:37)
[2022-12-27 10:39] VITALS: BP 145/67; PULSE 68; O2SAT 97
--- NOTE | 2022-12-27 12:14 | P.DS_ITS ---
DS: Providers Provider Date of Service: 12/27/22 Date of admission: 12/25/22 17:20 Date of discharge: 12/27/22 Primary care physician: Collins Serrano MD Consults: 12/25/22 17:41 Consult to Gastroenterology Routine Consulting Provider: Jose Daniel Nichols Reason for consultation: Constipation, stool +occult blood Has provider been notified: Yes DS: Diagnosis Discharge Diagnosis (1) Fecal impaction: Status: Acute (2) Acute GI bleeding: Status: Acute (3) Anemia: Status: Acute DS: Summary Hospital Course Hospital Course: 77-year-old female resident of [facility] with a PMH significant for?bipolar disorder, tardive dyskinesia, HTN, HLD, GERD, and chronic constipation who presents to the ED with?with constipation for the past 2 weeks.? Patient states that her last bowel movement was over 2 weeks ago.? Patient has chronic constipation, normally has 2-3 bowel movements per week.? Patient saw PCP earlier this week and started on MiraLax yesterday. Has taken one dose yesterday and one dose today with no effect. Pt notes rectal soreness x1 week, and has new rectal soreness s/p disimpaction and enemas, rated 3/10. Denies hemtachezia, melena. No fever, chills, nausea, vomiting, abdominal pain.? Denies polyuria or dysuria.? No chest pain/pressure, palpitations.? Denies shortness of breath. In the ED labs were significant for no leukocytosis, H&H of 9.1/27.1.? Stool positive for occult blood. UA negative for UTI. CT?of abdomen/pelvis showed severe constipation and fecal impaction with findings questionable for stercoral colitis related to chronic constipation. Pt was treated with 2 Fleet enemas, which resulted in the removal of a moderate amount of brown and bloody stool. Pt will be admitted to the hospital on observation for further workup evaluation constipation, anemia, and rectal pain. Hospital course: Patient was admitted to the hospital because of severe constipation: Received enema and laxatives subsequently had multiple BMs: Tolerating diet, upon discharge patient will be going with MiraLax and Colace- continue for constipation , if patient has diarrhea hold laxatives. celiac disease profile?labs pending follow-up with GI out patiently in. Patient also has folate deficiency so added folate. Patient's iron and iron saturation is low but ferritin is normal: Consider adding iron outpatient with PCP since patient is constipated currently so we will avoid adding at present. Initial rectal bleed episode probably related to severe constipation, H&H seems stable around 10, seen by GI -no workup recomended at present. Monitor CBC outpatient. plan: moniter cbc ,consider added iron supplements once consitpation get better. continue folate supplements continue luxatives for constipation. celiac disease profile?labs pending- follow up with Gi outapatient. Assessment and plan coordination time spent 50 minute. Time Spent with Patient Time attestation: Total time managing care of this patient today ____ minutes. Discharge coordination time: Greater than 30 minutes Quality: Safe Use of Opioids Does Pt have an Active Cancer Diagnosis on the Problem List?: No Quality: Stroke Does the patient have a stroke diagnosis?: No Physical Exam Vital Signs: Vital Signs: Last Vital Signs Temp 98.2 F 12/27/22 07:50 Pulse 68 12/27/22 10:39 Resp 18 12/27/22 07:50 BP 145/67 H 12/27/22 10:39 Pulse Ox 97 12/27/22 10:39 O2 Del Method 12/27/22 07:50 BMI result Body Mass Index 28.9 Appearance: Alert.? Oriented X3.? not in distress.? cvs: rrr, [id number] , no murmur res: clear to auscultation ,no rhonchii or wheezing abd: no rebound or guarding ,nt, bs present. ext pulses present , no cyanosis . neuro: axo3 , nonfocal. DS: Data Data Completed and Pending Labs on day of discharge: Laboratory Results - last 24 hr 12/27/22 05:51 WBC 6.1 RBC 3.70 L Hgb 10.8 L Hct 33.0 L MCV 89.2 MCH 29.2 MCHC 32.7 RDW 14.0 Plt Count 169 MPV 11.2 Immature Gran % (Auto) 0.3 Neut % (Auto) 61.8 Lymph % (Auto) 24.1 Yates % (Auto) 11.4 H Eos % (Auto) 2.1 Baso % (Auto) 0.3 Lymph # (Auto) 1.5 Yates # (Auto) 0.7 Eos # (Auto) 0.1 Baso # (Auto) 0.0 Abs Immat Gran (auto) 0.02 Absolute Neuts (auto) 3.7 Absolute Nucleated RBC 0.000 Nucleated RBC % (auto) 0.0 Imaging Chest x-ray: Radiologist's impression: ITS Impressions Abdomen/Pelvis CT 12/25/22 13:38 OSSEOUS STRUCTURES: Degenerative changes of the spine. IMPRESSION: Severe constipation and fecal impaction. Mild wall thickening of the distal colon and stranding of the surrounding fat and small amount of fluid in the presacral space. Findings are questionable for stercoral colitis related to chronic constipation. Fleischner guidelines were followed. Discharge Plan Discharge Patient Disposition: Home, Self-Care Discharge Diagnosis: Constipation, B12 deficiency, possible iron and iron sats low . Referrals: Collins Serrano MD [Primary Care Provider] - 1 Week Discharge Medications: New folic acid 1 mg Tablet 1 mg PO DAILY Qty: 30 0RF polyethylene glycol 3350 17 gram Powder In Packet 17 g PO BID PRN (Reason: constipation) Qty: 30 0RF docusate sodium 100 mg Capsule 100 mg PO BID PRN (Reason: constipation) Qty: 60 0RF Continued atorvastatin 20 mg tablet 1 tab PO BEDTIME trazodone 50 mg tablet 50 mg PO BEDTIME Rx Instructions: MAY REPEAT ONCE famotidine 40 mg tablet 1 tab PO DAILY@1700 divalproex 500 mg tablet,delayed release (DR/EC) 1 tab PO BEDTIME amlodipine 10 mg tablet 1 tab PO DAILY metoprolol succinate 25 mg tablet extended release 24 hr 1 tab PO BEDTIME losartan 100 mg tablet 1 tab PO DAILY primidone 50 mg Tablet 50 mg PO BID carbidopa-levodopa 10-100 mg Tablet 1 tab PO QID lorazepam 0.5 mg tablet 0.5 mg PO BID PRN (Reason: anxiety) Qty: 7 0RF glucosamine sulfate [Glucosamine] 500 mg Tablet 1,000 mg PO BID Rx Instructions: administer with meals olanzapine 5 mg Tablet 5 mg PO DAILY Discharge Orders: Discharge Order (Routine); Ordered 12/27/22 Ordered By: Randy Choi Diet: Advance to usual diet Activity on Discharge: As tolerated Stand Alone Forms: Patient Portal Discharge page Care Plan Goals: Patient was admitted to the hospital because of severe constipation: Received enema and laxatives subsequently had multiple BMs: Tolerating diet, upon discharge patient will be going with MiraLax and Colace- continue for constipation , if patient has diarrhea hold laxatives. celiac disease profile?labs pending follow-up with GI out patiently in. Patient also has folate deficiency so added folate. Patient's iron and iron saturation is low but ferritin is normal: Consider adding iron outpatient with PCP since patient is constipated currently so we will avoid adding at present. Initial rectal bleed episode probably related to severe constipation, H&H seems stable around 10, seen by GI -no workup recomended at present. Monitor CBC outpatient. Health Concerns: As above. Plan of Treatment: As above. Assessment: As above.
--- NOTE | 2022-12-27 13:37 | MHC.CM.PN ---
Addendum entered by Samantha Lee 12/27/22 14:56: PT WAS PROVIDED WITH THE SHUTTLE VOUCHER AND CM SPOKE TO [facility] THE RAILROAD CAR PAINTER WILL CALL THE [facility] WHEN THEY ARRIVE THERE SO THE PTS WALKER CAN BE BROUGHT TO THE CAR Original Note: CM MET WITH PT TO DISCUSS DC PLANNING SHE WAS SEEN BY PT AND CLEARED TO DC HOME SHE DECLINES ANY VNA SERVICES SHE DOES NEED TRANSPORT ARRANGED CM DISCUSSED OPTIONS INCLUDING [facility], BLS AND [facility] SHE PREFERS THE SHUTTLE CM CALLED THE [facility] [phone] AND SPOKE WITH JOHANNE, A NURSE THERE SHE CONFIRMS THE PT MANAGES HER OWN MEDICATIONS SHE WILL ALSO BE PREPARED TO BRING PTS WALKER TO THE VAN WHEN THEY ARRIVE CM WILL ASK SENIOR ELECTRONICS TECHNICIAN TO CALL WHEN THEY ARE CLOSE PT WILL DC BACK TO THE [facility] TODAY VIA SHUTTLE
[2023-01-01 13:28] LABS: Endomysial IgA Antibody Negative (Negative)
[2023-01-02 13:18] LABS: Gliadin Deamidated IgA Ab 1.2 U/mL; Gliadin Deamidated IgG Ab <1.0 U/mL; Transglutaminase Ab IgG 1.6 U/mL; Transglutaminase IgA <1.0 U/mL
== END 2022-12-27 14:56 | disposition home or self-care (01) ==
LOC: HO.ED 15:28 → HO.EDOVER 17:33 → HO.S3 20:27
PROVIDERS: Internal Medicine; Physician Assistant Medical; Admitting Provider Student in an Organized Health Care Education/Training Program; Emergency Provider Emergency Medicine; PCP Family Medicine; Visit Provider Internal Medicine
DX: K56.41 Fecal impaction (principal); K59.09 Other constipation; E53.8 Deficiency of other specified B group vitamins; D64.9 Anemia, unspecified; K62.89 Other specified diseases of anus and rectum; Z20.822 Contact with and (suspected) exposure to COVID-19; G24.01 Drug induced subacute dyskinesia; I10 Essential (primary) hypertension; E78.5 Hyperlipidemia, unspecified; K21.9 Gastro-esophageal reflux disease without esophagitis; F31.9 Bipolar disorder, unspecified; G47.00 Insomnia, unspecified; Z79.02 Long term (current) use of antithrombotics/antiplatelets; Z79.899 Other long term (current) drug therapy
CPT/HCPCS: 36415; 74176; 80048; 80053; 81001; 82272; 82607; 82728; 82746; 83540; 83735; 84443; 85025; 85027; 86231; 86258; 86364; 87635; 96361; 96365; 96366; 96375; 97161; 99221; 99285

== ENCOUNTER 2023-01-28 11:10 | Outpatient (REF) | payer MEDICARE, SELFPAY ==
[2023-01-28 14:14] LABS: MANUAL DIFF FLAG NO
[2023-01-28 14:21] LABS: Basophils Absolute Auto 0.1 X10*3/uL (0.0-0.2); Basophils Percent Auto 0.7 % (0-2); Eosinophils Absolute Auto 0.1 X10*3/uL (0.0-0.4); Eosinophils Percent Auto 0.8 % (0-4); Hematocrit 32.5 % (37.0-47.0); Hemoglobin 10.5 g/dl (12.0-16.0); Imm Gran Abs Auto 0.03 X10*3/uL (0.00-0.03); Imm Gran Pct Auto 0.4 % (0.0-0.4); Lymphocytes Absolute Auto 1.4 X10*3/uL (1.2-4.9); Lymphocytes Percent Auto 18.8 % (20-40); Mean Corpuscular HGB Conc 32.3 g/dl (31.0-35.0); Mean Corpuscular Hemoglobin 30.1 pg (27.0-33.0); Mean Corpuscular Volume 93.1 fL (80.0-98.0); Mean Platelet Volume 10.7 fL (9.4-12.3); Monocytes Absolute Auto 0.6 X10*3/uL (0.1-1.2); Monocytes Percent Auto 8.5 % (2-11); Neutrophils Absolute Auto 5.2 x10*3/uL (2.0-8.3); Neutrophils Percent Auto 70.8 % (45-73); Platelet Count 251 X10*3/uL (160-400); Red Blood Count 3.49 X10*6/uL (4.20-5.50); Red Cell Distribution Width 14.5 % (11.0-16.0); White Blood Count 7.3 X10*3/uL (4.8-10.8)
[2023-01-28 18:01] LABS: Iron 60 mcg/dL (30-160); Percent Iron Saturation 24 % (15-50); Total Iron Binding Capacity 248 mcg/dL (228-428); Unsaturated Iron Binding 188 ug/dL
[2023-01-28 18:50] LABS: Ferritin 106 ng/mL (10-250); Folate > 20.0 ng/mL (> or = 4.0)
== END 2023-01-28 11:11 | disposition home or self-care (01) ==
LOC: HO.HMGCLDS 11:10
PROVIDERS: PCP Family Medicine; Visit Provider Family Medicine
DX: D64.9 Anemia, unspecified (principal)
CPT/HCPCS: 36415; 82728; 82746; 83540; 85025

== ENCOUNTER 2023-01-30 15:03 | Outpatient (REF) | payer MEDICARE, SELFPAY ==
--- NOTE | ~2023-01-30 | MM_ITS ---
EXAMINATION: MM DIAGNOSTIC DIGITAL BREAST TOMOSYNTHESIS, LEFT CLINICAL INFORMATION: Probable benign grouped calcifications central left breast, suspect fibroadenomatous change. The lifetime risk of breast cancer based on the Tyrer-Cuzick Model is 7%. COMPARISON: Mammography: 06/05/2022, 12/20/2021, 06/19/2021, 06/11/2021 (BI-RADS 0), 06/08/2020 TECHNIQUE: Digital breast tomosynthesis is performed in both the craniocaudal and mediolateral oblique views along with computer-aided detection (CAD). Synthesized 2D images are generated from the tomosynthesis. Additional magnification left CC and magnification left ML views are obtained. FINDINGS: There are scattered areas of fibroglandular density (ACR BI-RADS breast composition Category b). The parenchymal pattern is similar to prior exams. There is no significant mass, architectural abnormality, developing density. The axilla and skin contours are unremarkable. Old coarse grouped calcifications posterior 7:00 position are again seen, appearance of fibroadenomatous calcification. The 2 groups of calcifications central left breast are similar to prior diagnostic exams and likely additional sites of fibroadenomatous calcifications. They will be reassessed again at time of next bilateral annual mammography in 6 months to conclude long-term surveillance. Results are provided to the patient at time of visit by the technologist. MM/MM tomosynthesis diagnostic LT IMPRESSION: The 2 groups of probable benign calcifications left breast for follow-up are similar to prior diagnostic exams. 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 ASSESSMENT: BI-RADS 3: Probably Benign RECOMMENDATION: Magnification views left breast at time of annual bilateral mammography, due in 6 months. This patient's information was entered into a reminder system with a target due date for their next mammogram.
== END 2023-01-30 15:04 | disposition home or self-care (01) ==
LOC: HO.MAMMO 15:03
PROVIDERS: PCP Family Medicine; Visit Provider Family Medicine
DX: R92.1 Mammographic calcification found on diagnostic imaging of breast (principal)
CPT/HCPCS: 77061; 77065

== ENCOUNTER 2023-04-29 11:11 | Outpatient (REF) | payer MEDICARE, SELFPAY ==
[2023-04-29 14:15] LABS: MANUAL DIFF FLAG NO
[2023-04-29 14:23] LABS: Basophils Absolute Auto 0.1 X10*3/uL (0.0-0.2); Basophils Percent Auto 0.7 % (0-2); Eosinophils Absolute Auto 0.1 X10*3/uL (0.0-0.4); Hematocrit 34.7 % (37.0-47.0); Hemoglobin 11.1 g/dl (12.0-16.0); Imm Gran Abs Auto 0.02 X10*3/uL (0.00-0.03); Imm Gran Pct Auto 0.3 % (0.0-0.4); Lymphocytes Absolute Auto 1.4 X10*3/uL (1.2-4.9); Lymphocytes Percent Auto 21.4 % (20-40); Mean Corpuscular Hemoglobin 28.8 pg (27.0-33.0); Mean Corpuscular Volume 89.9 fL (80.0-98.0); Mean Platelet Volume 10.6 fL (9.4-12.3); Monocytes Absolute Auto 0.6 X10*3/uL (0.1-1.2); Monocytes Percent Auto 8.5 % (2-11); Neutrophils Absolute Auto 4.5 x10*3/uL (2.0-8.3); Neutrophils Percent Auto 68.1 % (45-73); Platelet Count 264 X10*3/uL (160-400); Red Blood Count 3.86 X10*6/uL (4.20-5.50); Red Cell Distribution Width 13.8 % (11.0-16.0); White Blood Count 6.7 X10*3/uL (4.8-10.8)
[2023-04-29 14:34] LABS: Alanine Aminotransferase 13 U/L (0-31); Anion Gap 13 (12-20); Aspartate Amino Transferase 18 U/L (5-31); Blood Urea Nitrogen 17 mg/dL (9-16); Carbon Dioxide 24 mmol/L (22-29); Chloride 104 mmol/L (96-108); Estimated Glomerular Filt Rate > 60; Potassium 4.4 mmol/L (3.3-5.1); Sodium 137 mmol/L (135-145)
== END 2023-04-29 11:12 | disposition home or self-care (01) ==
LOC: HO.HMGCLDS 11:11
PROVIDERS: PCP Family Medicine; Visit Provider Family Medicine
DX: I10 Essential (primary) hypertension (principal); E78.00 Pure hypercholesterolemia, unspecified; D64.9 Anemia, unspecified; Z79.899 Other long term (current) drug therapy
CPT/HCPCS: 36415; 80051; 82550; 82565; 84450; 84460; 84520; 85025

== ENCOUNTER 2023-07-14 17:17 | Emergency (ER) | payer MEDICARE, SELFPAY ==
--- NOTE | 2023-07-14 | ECG_ITS ---
Test Reason : FEVER Blood Pressure : / mmHG Vent. Rate : 088 BPM Atrial Rate : 088 BPM P-R Int : 170 ms QRS Dur : 094 ms QT Int : 380 ms P-R-T Axes : 009 031 041 degrees QTc Int : 459 ms Poor data quality, interpretation may be adversely affected Normal sinus rhythm Nonspecific T wave abnormality Abnormal ECG When compared with ECG of 02-DEC-2022 13:45, Nonspecific T wave abnormality now evident in Lateral leads Referred By: Generic ED Physician Electronically Signed By:MARIAJOSE DUBON
--- NOTE | ~2023-07-14 | XR_ITS ---
EXAMINATION: PORTABLE CHEST 1 VIEW CLINICAL INFORMATION: fever. COMPARISON: 02/05/2022. TECHNIQUE: Portable frontal view of the chest was obtained. FINDINGS: The lungs are well expanded. No focal infiltrate, effusion, edema, or pneumothorax. Cardiac and mediastinal silhouettes are within normal limits for size with vascular calcification in aorta. Mild degenerative changes in the spine and shoulders. No acute bony abnormality seen. XR/XR chest 1V IMPRESSION: No evidence of acute disease.
[2023-07-14 17:29] VITALS: BP 154/76; PULSE 95; RESP 15; TEMP 36.6
[2023-07-14 17:35] VITALS: BP 138/80; BP 154/76; PULSE 93; PULSE 94; RESP 20; TEMP 38.9; O2SAT 96; O2SAT 99
--- NOTE | 2023-07-14 18:02 | PC.NURSE ---
20gIV placed in the right AC w/o complications - labs drawn and sent to lab. pt resting comfortably in no apparent distress. respirations even and unlabored. call hunter placed within reach.
[2023-07-14 18:14] LABS: Basophils Percent Auto 0.2 % (0-2); Hematocrit 34.5 % (37.0-47.0); Hemoglobin 11.5 g/dl (12.0-16.0); Imm Gran Abs Auto 0.02 X10*3/uL (0.00-0.03); Imm Gran Pct Auto 0.2 % (0.0-0.4); Lymphocytes Absolute Auto 0.3 X10*3/uL (1.2-4.9); Lymphocytes Percent Auto 3.7 % (20-40); MANUAL DIFF FLAG SCAN; Mean Corpuscular HGB Conc 33.3 g/dl (31.0-35.0); Mean Corpuscular Hemoglobin 29.2 pg (27.0-33.0); Mean Corpuscular Volume 87.6 fL (80.0-98.0); Mean Platelet Volume 10.6 fL (9.4-12.3); Monocytes Absolute Auto 0.2 X10*3/uL (0.1-1.2); Monocytes Percent Auto 2.9 % (2-11); Neutrophils Absolute Auto 7.5 x10*3/uL (2.0-8.3); Platelet Count 197 X10*3/uL (160-400); Red Blood Count 3.94 X10*6/uL (4.20-5.50); Red Cell Distribution Width 14.1 % (11.0-16.0); SCAN SMEAR FLAG 1; White Blood Count 8.1 X10*3/uL (4.8-10.8)
[2023-07-14 18:19] LABS: Lactic Acid 1.6 mmol/L (0.5-2.0)
[2023-07-14 18:22] LABS: Alanine Aminotransferase 16 U/L (0-31); Albumin Level 3.7 g/dL (3.5-5.0); Alkaline Phosphatase 56 U/L (39-117); Anion Gap 13 (12-20); Aspartate Amino Transferase 18 U/L (5-31); Bilirubin Direct 0.1 mg/dL (0.0-0.5); Bilirubin Total 0.4 mg/dL (0.0-1.0); Blood Urea Nitrogen 19 mg/dL (9-16); Calcium 9.1 mg/dL (8.4-10.2); Carbon Dioxide 21 mmol/L (22-29); Chloride 102 mmol/L (96-108); Creatinine Clr Calc Pharmacy 61.8; Estimated Glomerular Filt Rate > 60; Glucose Random 112 mg/dL (60-115); Lipase 14 U/L (8-78); Potassium 3.4 mmol/L (3.3-5.1); Sodium 133 mmol/L (135-145); Total Protein 7.3 g/dL (6.5-8.0)
[2023-07-14] MEDS: Acetaminophen 325 MG TABLET 975 MG PO (18:37)
[2023-07-14] MEDS: 0.9 % Sodium Chloride 2,000 ML 999 ML IVCONT (18:37)
--- NOTE | 2023-07-14 18:41 | ED.FEVER ---
HPI - Fever General Chief Complaint: Fever Stated Complaint: Fever, weakness Time Seen by Provider: 07/14/23 18:09 Source: patient Mode of arrival: EMS Limitations: altered mental status History of Present Illness HPI Narrative: Patient comes to the emergency room via ambulance from a nursing facility . Staff reports that the patient has been complaining of weakness and fever since yesterday. Patient is unable to give full history, patient keeps saying ?help me, help me ? and is shivering. Patient states that nothing hurts. Patient denies chest pain or shortness of breath, no abdominal pain. Related Data Home Medications Medication Instructions Recorded Confirmed amlodipine 10 mg tablet 1 tab PO DAILY 12/01/22 07/14/23 atorvastatin 20 mg tablet 1 tab PO BEDTIME 12/01/22 07/14/23 divalproex 500 mg tablet,delayed 1 tab PO BEDTIME 12/01/22 07/14/23 release famotidine 40 mg tablet 1 tab PO DAILY@1700 12/01/22 07/14/23 losartan 100 mg tablet 1 tab PO DAILY 12/01/22 07/14/23 metoprolol succinate 25 mg 1 tab PO BEDTIME 12/01/22 07/14/23 tablet,extended release 24 hr trazodone 50 mg tablet 50 mg PO BEDTIME 12/01/22 07/14/23 carbidopa 10 mg-levodopa 100 mg 1 tab PO QID 12/02/22 07/14/23 tablet primidone 50 mg tablet 50 mg PO BID 12/02/22 07/14/23 glucosamine sulfate 500 mg tablet 1,000 mg PO BID 12/25/22 07/14/23 (Glucosamine) olanzapine 5 mg tablet 5 mg PO DAILY 12/25/22 07/14/23 lorazepam 0.5 mg tablet 0.5 mg PO BID anxiety 07/14/23 07/14/23 trazodone 50 mg tablet 50 mg PO BEDTIME PRN insomina 07/14/23 07/14/23 Allergies Allergy/AdvReac Type Severity Reaction Status Date / Time propranolol [PROPRANOLOL] Allergy Unknown CONFUSSION, Verified 12/25/22 12:43 aggitation Sulfa (Sulfonamide Allergy Unknown HIVES Verified 12/25/22 12:43 Antibiotics) Review of Systems Review of Systems: Constitutional : Complaining of not feeling well, chills, feeling cold and feeling weak ENT/Mouth : No Hearing loss, No Ear Pain, No Nasal Congestion, No Sinus Pain, No Hoarseness, No sore throat, No Rhinorrhea, No Swallowing Difficulty Eyes: No Eye Pain, No Swelling, No Redness, No Foreign Body, No Discharge, No Vision Changes Cardiovascular : No Chest Pain, No SOB, No Dyspnea on Exertion, No Orthopnea, No Edema, No Palpitations Respiratory : No Cough, No Sputum, No Wheezing, No Smoke Exposure, No Dyspnea Gastrointestinal : No Nausea, No Vomiting, No Diarrhea, No Constipation, No abdominal Pain, No Hematochezia, No Melena Genitourinary : no irregular bleeding, No Dysuria, No Urinary Frequency, No Hematuria, No Urinary Incontinence, No Urgency, No Flank Pain, No Urinary Flow Changes, No Hesitancy Musculoskeletal : No joint pain, No Myalgias, No Joint Swelling Skin : No rash Neuro : No Weakness, No Numbness, No Paresthesias, No Loss of Consciousness, No Dizziness, No Headache Psych : No Anxiety/Panic, No Depression, No SI/HI/AH/VH, No Social Issues, Heme/Lymph: No Bruising, No Bleeding,No Lymphadenopathy Endocrine : No Polyuria, No Polydipsia, No Temperature Intolerance PMFSH Past Medical History Medical History 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 GERD (gastroesophageal reflux disease) Arthritis Bipolar disorder Hypertension Hyperlipidemia Social History Social History Alcohol intake: never Patient Tobacco Use Status: Never used Tobacco Smoked in Last 30 Days: No Use of substances other than those prescribed or required for medical reasons: No Advance Directives: Yes Advance Directives on File: Yes Advance Directives Date on File: 12/03/22 service: No Current occupational status: retired Physical Exam Vital Signs: Vital Signs: Last Vital Signs Temp 98.1 F 07/14/23 21: Pulse 84 07/14/23 21: Resp 17 07/14/23 21:22 BP 129/51 L 07/14/23 21:22 Pulse Ox 97 07/14/23 21:22 O2 Del Method Room Air 07/14/23 21:22 BMI result Body Mass Index 30.0 Const: Other: Appearance: Alert. Oriented X2 No acute distress. Eyes: Pupils equal, round and reactive to light. ENT: Pharynx normal. Neck: Normal inspection. Neck supple. No lymph nodes noted. No crepitus CVS: Normal heart rate and rhythm. Pulses normal. Normal S1 and S2 Respiratory: No respiratory distress. Breath sounds normal. No Wheezing. No rales Abdomen: Soft and nontender. No rigidity. No distention. Skin: Skin warm and clammy, facial flushing Extremities: No lower extremity edema. No Lacerations. No Rash Neuro: Oriented X 2. No motor deficit. No sensory deficit. Moving all extremities. No slurred speech. CN 2 through 12 grossly intact Psych: calm, cooperative, anxious Course Course Course Narrative: -patient receiving IV fluids based on ideal weight of 45 kg. Patient vaguely reported dysuria? Patient being given ceftriaxone empirically. Patient does have a fever of 102.1. Blood pressure 154/76, heart rate 93, sepsis not suspected at this time, 18:20 -18:45: my interpretation of labs: Normal white blood cell count, mild hypokalemia, sodium 133, patient receiving IV fluids. Chest x-ray, lactic acid, urinalysis , serology for COVID and influenza pending -lactic acid within normal limits, urinalysis negative for UTI , COVID influenza test negative -chest x-ray my interpretation: No infiltrates -there is no identifiable source of infection. I discussed the patient with Dr. Patten, patient being admitted Medications Administered Discontinued Medications Generic Name Dose Route Start Last Admin Trade Name Freq PRN Reason Stop Dose Admin Acetaminophen 975 mg 07/14/23 18:19 07/14/23 18:37 Acetaminophen 325 Mg Tablet PO 07/14/23 18:20 975 mg ONCE ONE Administration Sodium Chloride 2,000 mls @ 999 mls/hr 07/14/23 18:16 07/14/23 18:37 Ns IVCONT 07/14/23 20:16 999 mls/hr .Q2H1M ONE Administration Ceftriaxone Sodium 1 gm/ 50 mls @ 100 mls/hr 07/14/23 18:19 07/14/23 19:25 Sodium Chloride IV 07/14/23 18:48 100 mls/hr ONCE ONE Administration Medical Decision Making Medical Decision Making MDM Narrative: -patient was seen by our hospitalist team who agreed to admit the patient. After IV fluids, patient became more awake alert and oriented x3. Patient refused to stay in the hospital, patient feeling better, no longer having fever, asking to be discharged home. -there is no clear source of infection, patient likely has a viral syndrome. Per patient's request, patient being discharged Differential Diagnosis Differential Diagnoses: The differential diagnosis associated with the presentation includes (Pneumonia, UTI, COVID, influenza, viral syndrome) Admission/Observation Consideration of admission/observation: Escalation of care including admission/observation considered Consult Healthcare Provider Management of the patient was discussed with: Hospitalist Lab Data [facility] Lab Attestation statement: I reviewed the patient's lab results. 07/14/23 17:57 07/14/23 17:57 Labs: Lab Results 07/14/23 07/14/23 07/14/23 Range/Units 17:57 19:09 19:19 WBC 8.1 (4.8-10.8) X10*3/uL RBC 3.94 L (4.20-5.50) X10*6/uL Hgb 11.5 L (12.0-16.0) g/dl Hct 34.5 L (37.0-47.0) % MCV 87.6 (80.0-98.0) fL MCH 29.2 (27.0-33.0) pg MCHC 33.3 (31.0-35.0) g/dl RDW 14.1 (11.0-16.0) % Plt Count 197 D (160-400) X10*3/uL MPV 10.6 (9.4-12.3) fL Immature Gran % (Auto) 0.2 (0.0-0.4) % Neut % (Auto) 93.0 H (45-73) % Lymph % (Auto) 3.7 L (20-40) % [place] % (Auto) 2.9 (2-11) % Eos % (Auto) 0.0 (0-4) % Baso % (Auto) 0.2 (0-2) % Lymph # (Auto) 0.3 L (1.2-4.9) X10*3/uL [place] # (Auto) 0.2 (0.1-1.2) X10*3/uL Eos # (Auto) 0.0 (0.0-0.4) X10*3/uL Baso # (Auto) 0.0 (0.0-0.2) X10*3/uL Abs Immat Gran (auto) 0.02 (0.00-0.03) X10*3/uL Absolute Neuts (auto) 7.5 (2.0-8.3) x10*3/uL Absolute Nucleated RBC 0.000 (0.0-0.012) X10*3/uL Nucleated RBC % (auto) 0.0 (0.0-0.2) /100WBC Smear Tech's Comments VERIFIED Sodium 133 L (135-145) mmol/L Potassium 3.4 D (3.3-5.1) mmol/L Chloride 102 (96-108) mmol/L Carbon Dioxide 21 L (22-29) mmol/L Anion Gap 13 (12-20) BUN 19 H (9-16) mg/dL Creatinine 0.72 (0.5-1.4) mg/dL Estim Creat Clear Calc 61.8 Estimated GFR > 60 Random Glucose 112 (60-115) mg/dL Lactic Acid 1.6 (0.5-2.0) mmol/L Calcium 9.1 D (8.4-10.2) mg/dL Total Bilirubin 0.4 (0.0-1.0) mg/dL Direct Bilirubin 0.1 (0.0-0.5) mg/dL AST 18 (5-31) U/L ALT 16 (0-31) U/L Alkaline Phosphatase 56 (39-117) U/L Total Protein 7.3 (6.5-8.0) g/dL Albumin 3.7 (3.5-5.0) g/dL Lipase 14 (8-78) U/L Urine Color Yellow Urine Appearance Clear Urine pH 5.5 (5.0-9.0) Ur Specific [place] 1.020 (1.005-1.025) Urine Protein Negative (Neg-Trace) mg/dL Urine Glucose (UA) Negative (Negative) mg/dL Urine Ketones Negative (Negative) mg/dL Urine Blood Negative (Negative) Urine Nitrite Negative (Negative) Ur Leukocyte Esterase Negative (Negative) COVID-19 (TOM) Negative (Negative) COVID-19 Clin Com See Note Influenza Type A (SAIRA) Negative (Negative) Influenza Type B (SAIRA) Negative (Negative) Influenza A & B Note See Note Independent Interpretation I performed an independent interpretation of an: Plain X-Ray Radiology Impression Discussion of test interpretation with radiology: I have reviewed the radiologist's reading. Radiologist Impression: INDINGS: The lungs are well expanded. No focal infiltrate, effusion, edema, or pneumothorax. Cardiac and mediastinal silhouettes are within normal limits for size with vascular calcification in aorta. Mild degenerative changes in the spine and shoulders. No acute bony abnormality seen. XR/XR chest 1V IMPRESSION: No evidence of acute disease. Critical Care Time Critical Care Time Critical Care Time: Yes Total Critical Care Time: 60 Attestation: I have personally provided critical care time. Time includes review of lab data, radiology results, discussion with consultants, and monitoring for potential decompensation. Intervention performed as documented. Discharge Plan Discharge Clinical Impression: Weakness, Acute viral syndrome Patient Disposition: Home, Self-Care Instructions: Viral Syndrome (ED) Additional Instructions: Please follow-up with your primary care physician tomorrow. If you have any worsening or new symptoms, please return to the emergency room or call 911 Prescriptions: No Action atorvastatin 20 mg tablet 1 tab PO BEDTIME trazodone 50 mg tablet 50 mg PO BEDTIME famotidine 40 mg tablet 1 tab PO DAILY@1700 divalproex 500 mg tablet,delayed release (DR/EC) 1 tab PO BEDTIME amlodipine 10 mg tablet 1 tab PO DAILY metoprolol succinate 25 mg tablet extended release 24 hr 1 tab PO BEDTIME losartan 100 mg tablet 1 tab PO DAILY primidone 50 mg Tablet 50 mg PO BID carbidopa-levodopa 10-100 mg Tablet 1 tab PO QID glucosamine sulfate [Glucosamine] 500 mg Tablet 1,000 mg PO BID Rx Instructions: administer with meals olanzapine 5 mg Tablet 5 mg PO DAILY trazodone 50 mg tablet 50 mg PO BEDTIME PRN (Reason: insomina) Rx Instructions: in addition to trazodone 50 mg if continue insomnia lorazepam 0.5 mg tablet 0.5 mg PO BID
[2023-07-14 18:48] LABS: SLIDE REVIEW VERIFIED
--- NOTE | 2023-07-14 19:10 | PC.NURSE ---
straight catheterization performed - pt tolerated well. 200ml dark yellow urine obtained and sent to lab.
[2023-07-14 19:19] LABS: Appearance Urine Clear; Color Urine Yellow; Glucose Urine UA Negative (Negative); Leukocyte Esterase Urine Negative (Negative); Nitrite Urine Negative (Negative); PH 5.5 (5.0-9.0); Urine Blood Negative (Negative); Urine Ketones Negative (Negative); Urine Protein Negative (Neg-Trace)
[2023-07-14] MEDS: cefTRIAXone sodium 1 GM in 0.9 % Sodium Chloride 50 ML IV (19:25)
[2023-07-14 19:41] LABS: IDNOW Serial# BCCEAD1C; Influenza A Negative (Negative); Influenza B2 Negative (Negative)
[2023-07-14 19:42] LABS: COVID-19 Test Negative (Negative); IDNOW Serial# 08D9AD1C
--- NOTE | 2023-07-14 20:52 | PHA.MEDREC ---
Pharmacy Consult ? Medication Reconciliation Pharmacy has completed the medication reconciliation. Patient came from the [facility] with a medication list. Lorna Stroud, MelvinD
[2023-07-14 21:22] VITALS: BP 129/51; PULSE 84; RESP 17; TEMP 36.7; O2SAT 97
[2023-07-14 23:39] VITALS: BP 130/60; PULSE 78; RESP 18; O2SAT 99
== END 2023-07-14 23:42 | disposition home or self-care (01) ==
PROVIDERS: Emergency Provider Emergency Medicine; PCP Family Medicine
DX: B34.9 Viral infection, unspecified (principal); R53.1 Weakness; R50.9 Fever, unspecified; R94.31 Abnormal electrocardiogram [ECG] [EKG]; E78.5 Hyperlipidemia, unspecified; I10 Essential (primary) hypertension; Z20.822 Contact with and (suspected) exposure to COVID-19; Z79.899 Other long term (current) drug therapy
CPT/HCPCS: 36415; 71045; 80048; 80076; 81003; 83605; 83690; 85025; 87040; 87502; 87635; 93005; 96361; 96374; 99284; 99285; J0696

== ENCOUNTER 2023-07-24 10:48 | Outpatient (REF) | payer MEDICARE, SELFPAY ==
--- NOTE | ~2023-07-24 | MM_ITS ---
EXAMINATION: MM DIAGNOSTIC DIGITAL BREAST TOMOSYNTHESIS, BILATERAL CLINICAL INFORMATION: Last six-month follow-up, Evaluate left breast calcifications, for a two-year stability, completing follow-ups. Patient also due for bilateral screening. COMPARISON: Mammography: 01/30/2023, 06/05/2022, 12/20/2021, 06/19/2021, 06/11/2021, 06/08/2020. TECHNIQUE: Digital breast tomosynthesis is performed in both the craniocaudal and mediolateral oblique views along with computer-aided detection (CAD). Synthesized 2D images are generated from the tomosynthesis. In addition, 2-D spot magnification left CC and ML views were obtained of the left breast. FINDINGS: There are scattered areas of fibroglandular density (ACR BI-RADS breast composition Category b). The 2 groups of somewhat coarse appearing calcifications within the left breast central and lower aspect are stable and unchanged without suspicious features. An additional benign grouped medially and posteriorly has been present for quite some time, also unchanged. There are bilateral vascular calcifications. Post benign biopsy clip noted in the far anterior upper right breast. There are no suspicious masses, developing suspicious grouped calcifications, or areas of architectural distortion. The parenchymal pattern is stable from prior exams. No skin changes noted. MM/MM tomosynthesis diagnostic BI IMPRESSION: There are no significant changes from prior study. There are no findings suspicious for malignancy. Left groups of calcifications have remained stable over 2 years, and are benign. No further follow-up recommended. Recommend the patient resume annual routine screening mammography. ASSESSMENT: BI-RADS BI-RADS 2 - Benign Findings RECOMMENDATION: 1 year F/U Results were provided to the patient at time of visit by the technologist. This patient's information was entered into a reminder system with a target due date for their next mammogram.
== END 2023-07-24 10:49 | disposition home or self-care (01) ==
LOC: HO.MAMMO 10:48
PROVIDERS: PCP Family Medicine; Visit Provider Family Medicine
DX: R92.1 Mammographic calcification found on diagnostic imaging of breast (principal)
CPT/HCPCS: 77062; 77066

== ENCOUNTER → 2023-07-24 11:15 | Outpatient (BNV) | payer MEDICARE, SELFPAY | PROVIDERS: PCP Family Medicine; Visit Provider Radiology Diagnostic Radiology | DX: R92.1 Mammographic calcification found on diagnostic imaging of breast (principal) | CPT/HCPCS: 77062; 77066; G0279 ==

== ENCOUNTER 2023-08-14 18:24 | Emergency (ER) | payer MEDICARE, SELFPAY ==
--- NOTE | ~2023-08-14 | XR_ITS ---
EXAMINATION: XR KNEE, LEFT CLINICAL INFORMATION: Acute on chronic pain COMPARISON: None available. TECHNIQUE: Four views of the left knee. FINDINGS: There is loss of tricompartment joint space with moderate periarticular spurring in the medial and lateral compartments. There is mild suprapatellar joint effusion. No acute fracture, dislocation or loose body seen. XR/XR knee LT 3V IMPRESSION: 1. Degenerative arthritic changes left knee with moderate periarticular spurring in the medial and lateral compartments. 2. Mild suprapatellar joint effusion.
[2023-08-14 18:43] VITALS: BP 146/59; PULSE 81; RESP 18; TEMP 36.4; O2SAT 96; BMI 28.2
--- NOTE | 2023-08-14 18:45 | ED.LOWEXIN ---
HPI - Extremity Injury (Lower) General Chief Complaint: Extremity Injury, Lower Stated Complaint: L KNEE PAIN Time Seen by Provider: 08/14/23 18:45 Source: patient, EMS, RN notes reviewed and old records reviewed Mode of arrival: EMS History of Present Illness HPI Narrative: 78-year-old female with a past medical history of trauma, GERD, bipolar, HTN, HLD, presenting to the ED via EMS from SNF complaining of acute on chronic left knee pain since this morning. Patient reports it is difficult for her to go from sitting to standing position. At baseline ambulates with walker. Denies known injury/ trauma or fall states the difficulty getting toilet today, admits has been ambulatory. Denies numbness, tingling, weakness, swelling Related Data Home Medications Medication Instructions Recorded Confirmed amlodipine 10 mg tablet 1 tab PO DAILY 12/01/22 07/14/23 atorvastatin 20 mg tablet 1 tab PO BEDTIME 12/01/22 07/14/23 divalproex 500 mg tablet,delayed 1 tab PO BEDTIME 12/01/22 07/14/23 release famotidine 40 mg tablet 1 tab PO DAILY@1700 12/01/22 07/14/23 losartan 100 mg tablet 1 tab PO DAILY 12/01/22 07/14/23 metoprolol succinate 25 mg 1 tab PO BEDTIME 12/01/22 07/14/23 tablet,extended release 24 hr trazodone 50 mg tablet 50 mg PO BEDTIME 12/01/22 07/14/23 carbidopa 10 mg-levodopa 100 mg 1 tab PO QID 12/02/22 07/14/23 tablet primidone 50 mg tablet 50 mg PO BID 12/02/22 07/14/23 glucosamine sulfate 500 mg tablet 1,000 mg PO BID 12/25/22 07/14/23 (Glucosamine) olanzapine 5 mg tablet 5 mg PO DAILY 12/25/22 07/14/23 lorazepam 0.5 mg tablet 0.5 mg PO BID anxiety 07/14/23 07/14/23 trazodone 50 mg tablet 50 mg PO BEDTIME PRN insomina 07/14/23 07/14/23 Allergies Allergy/AdvReac Type Severity Reaction Status Date / Time propranolol [PROPRANOLOL] Allergy Unknown CONFUSSION, Verified 12/25/22 12:43 aggitation Sulfa (Sulfonamide Allergy Unknown HIVES Verified 12/25/22 12:43 Antibiotics) Review of Systems Review of Systems: Constitutional: No Fever, No Chills ENT/Mouth: No Ear Pain, No Nasal Congestion,No sore throat, No Rhinorrhea, No Swallowing Difficulty Cardiovascular: No Chest Pain, No SOB Respiratory: No Cough, No Sputum, No Wheezing Gastrointestinal: No Nausea, No Vomiting, No Diarrhea, No Abdominal pain Genitourinary: No Dysuria, No Urinary Frequency, No Hematuria, No Flank Pain Musculoskeletal: + joint pain, No Myalgias, No Joint Swelling Skin: No Skin Lesions, No rash Neuro: No Weakness, No Numbness, No Paresthesias Yes all other systems are reviewed and are negative Constitutional: Constitutional: Reports as per [facility] Past Medical History Attestation statement: The following information was validated with the patient. 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 GERD (gastroesophageal reflux disease) Arthritis Bipolar disorder Hypertension Hyperlipidemia Social History Social History Alcohol intake: never Patient Tobacco Use Status: Never used Tobacco Advance Directives: Yes Advance Directives on File: Yes Advance Directives Date on File: 12/03/22 service: No Current occupational status: retired Physical Exam Vital Signs: Vital Signs: Last Vital Signs Temp 97.6 F 08/14/23 20:43 Pulse 72 08/14/23 20:43 Resp 17 08/14/23 20:43 BP 143/62 H 08/14/23 20:43 Pulse Ox 94 08/14/23 20:43 O2 Del Method Room Air 08/14/23 20:43 BMI result Body Mass Index 28.2 Const: General: cooperative, healthy appearing and no acute distress Orientation/consciousness: patient oriented x3 Limitations: no limitations HEENT: Head: Yes normal to inspection and Yes atraumatic Ears: hearing grossly normal bilaterally General nose exam: Normal external nose present Face and sinus: Yes normal facial exam Eyes: General: appearance normal, both eyes and all related structures EOM: EOMs intact bilaterally Neck: Neck: Yes normal visual inspection and Yes no meningeal signs Resp: Effort & Inspection: normal respiratory effort and no respiratory distress Cardio: Rate: regular rate GI: Inspection: Yes normal to inspection Palpation (GI): Soft to palpation, nontender, no guarding and not rigid Skin: Rashes: no rashes Wounds: no wounds Neuro: General: patient oriented x3, tone normal and no meningeal signs Cranial nerves: Yes CN's II-XII intact bilaterally Gait exam (Neuro): Normal gait present Extrem: Other: left knee with mild swelling. No erythema/ warmth. Nontender to palpation. Full range of motion intact. Neurovascular intact distally. No pitting edema or calf tenderness. No popliteal tenderness General: Yes no pedal edema and Yes no calf tenderness Course Course Course Narrative: XR knee LT 3V IMPRESSION: 1. Degenerative arthritic changes left knee with moderate periarticular spurring in the medial and lateral compartments. 2. Mild suprapatellar joint effusion. > will apply ADEN wrap and trial ambulation -2047-- patient ambulated in the ED with steady gait at baseline with walker. Reports symptomatic improvement, requesting discharge Results discussed with patient including worrisome signs and symptoms and strict return precautions, and when to return to the emergency department. They verbalized understanding and feel safe for discharge at this time. Medications Administered Discontinued Medications Generic Name Dose Route Start Last Admin Trade Name Freq PRN Reason Stop Dose Admin Acetaminophen 650 mg 08/14/23 18:53 08/14/23 19:04 Acetaminophen 325 Mg Tablet PO 08/14/23 18:54 650 mg ONCE ONE Administration Tramadol HCl 50 mg 08/14/23 18:53 08/14/23 19:04 Tramadol Hcl 50 Mg Tablet PO 08/14/23 18:54 50 mg ONCE ONE Administration Medical Decision Making Medical Decision Making [facility] Narrative: 78-year-old female with a past medical history of trauma, GERD, bipolar, HTN, HLD, presenting to the ED via EMS from [facility] complaining of acute on chronic left knee pain since this morning. on exam vital signs stable, NAD, nontoxic appearing, physical exam as above with left knee swelling. Nontender. Full range of motion and neurovascularly intact. No edema. Concern for acute on chronic arthritic pain vs ? fracture or tendinitis /ligamental or soft tissue injury. Low suspicion for Peter cyst, DVT or arterial compromise. No evidence of septic joint/ arthritis Plan: X-ray, pain control, ambulation trial Please refer to course for remaining clinical decision making, interpretation of labs/imaging results, and discussions with consultants and/or family members. Differential Diagnosis Differential Diagnoses: The differential diagnosis associated with the presentation includes As above Independent Interpretation I performed an independent interpretation of an: Plain X-Ray Radiology Impression Discussion of test interpretation with radiology: I have reviewed the radiologist's reading. Independent Historian Clinical information obtained from an independent historian. History obtained from or confirmed by: EMS External Record Review External record reviewed: Inpatient record, Office record, Outpatient record, Prior outpatient labs, Prior outpatient radiology, Primary care record and Outside ED record Tests considered The following testing was considered but not selected: As above Prescription Management I considered prescription management with: Pain Medication Chronic Conditions Patient?s care impacted by: Hypertension Discharge Plan Discharge Clinical Impression: Suprapatellar effusion of knee Patient Disposition: Still a Patient Prescriptions: No Action atorvastatin 20 mg tablet 1 tab PO BEDTIME trazodone 50 mg tablet 50 mg PO BEDTIME famotidine 40 mg tablet 1 tab PO DAILY@1700 divalproex 500 mg tablet,delayed release (DR/EC) 1 tab PO BEDTIME amlodipine 10 mg tablet 1 tab PO DAILY metoprolol succinate 25 mg tablet extended release 24 hr 1 tab PO BEDTIME losartan 100 mg tablet 1 tab PO DAILY primidone 50 mg Tablet 50 mg PO BID carbidopa-levodopa 10-100 mg Tablet 1 tab PO QID glucosamine sulfate [Glucosamine] 500 mg Tablet 1,000 mg PO BID Rx Instructions: administer with meals olanzapine 5 mg Tablet 5 mg PO DAILY trazodone 50 mg tablet 50 mg PO BEDTIME PRN (Reason: insomina) Rx Instructions: in addition to trazodone 50 mg if continue insomnia lorazepam 0.5 mg tablet 0.5 mg PO BID
[2023-08-14] MEDS: traMADoL HCL 50 MG TABLET PO (19:04)
[2023-08-14] MEDS: Acetaminophen 325 MG TABLET 650 MG PO (19:04)
[2023-08-14 19:05] VITALS: BP 145/57; PULSE 82; RESP 16; O2SAT 94
[2023-08-14 20:43] VITALS: BP 143/62; PULSE 72; RESP 17; TEMP 36.4; O2SAT 94
--- NOTE | 2023-08-14 20:44 | MHC.EDTECH ---
PATIENT WENT FOR A WALK USING WALKER ,PATIENT DID WELL AMBULATING ,PROVIDER SONIYA AWARE .
--- NOTE | 2023-08-14 20:44 | MHC.EDTECH ---
VITALS DONE, PT RESTING
== END 2023-08-14 22:06 | disposition skilled nursing facility (03) ==
PROVIDERS: Emergency Provider Emergency Medicine; PCP Family Medicine
DX: M25.462 Effusion, left knee (principal); M25.562 Pain in left knee; I10 Essential (primary) hypertension; E78.5 Hyperlipidemia, unspecified; Z79.899 Other long term (current) drug therapy
CPT/HCPCS: 73562; 99283; 99284

== ENCOUNTER 2023-12-19 09:23 | Outpatient (REF) | payer MEDICARE, SELFPAY ==
[2023-12-19 09:38] LABS: MANUAL DIFF FLAG NO
[2023-12-19 10:01] LABS: Basophils Absolute Auto 0.1 X10*3/uL (0.0-0.2); Basophils Percent Auto 0.7 % (0-2); Eosinophils Absolute Auto 0.1 X10*3/uL (0.0-0.4); Hematocrit 33.3 % (37.0-47.0); Hemoglobin 11.1 g/dl (12.0-16.0); Imm Gran Abs Auto 0.02 X10*3/uL (0.00-0.03); Imm Gran Pct Auto 0.3 % (0.0-0.4); Lymphocytes Absolute Auto 1.5 X10*3/uL (1.2-4.9); Lymphocytes Percent Auto 20.6 % (20-40); Mean Corpuscular HGB Conc 33.3 g/dl (31.0-35.0); Mean Corpuscular Hemoglobin 29.1 pg (27.0-33.0); Mean Corpuscular Volume 87.4 fL (80.0-98.0); Mean Platelet Volume 9.8 fL (9.4-12.3); Monocytes Absolute Auto 0.5 X10*3/uL (0.1-1.2); Monocytes Percent Auto 7.3 % (2-11); Neutrophils Percent Auto 70.1 % (45-73); Platelet Count 252 X10*3/uL (160-400); Red Blood Count 3.81 X10*6/uL (4.20-5.50); Red Cell Distribution Width 14.2 % (11.0-16.0); White Blood Count 7.1 X10*3/uL (4.8-10.8)
[2023-12-19 10:20] LABS: Alanine Aminotransferase 7 U/L (0-31); Anion Gap 11 (12-20); Aspartate Amino Transferase 14 U/L (5-31); Blood Urea Nitrogen 11 mg/dL (9-16); Carbon Dioxide 27 mmol/L (22-29); Chloride 102 mmol/L (96-108); Estimated Glomerular Filt Rate > 60; Potassium 3.9 mmol/L (3.3-5.1); Sodium 136 mmol/L (135-145)
== END 2023-12-19 09:24 | disposition home or self-care (01) ==
LOC: HO.LAB 09:23
PROVIDERS: PCP Family Medicine; Visit Provider Family Medicine
DX: E78.00 Pure hypercholesterolemia, unspecified (principal); I10 Essential (primary) hypertension; D64.9 Anemia, unspecified; Z79.899 Other long term (current) drug therapy
CPT/HCPCS: 36415; 80051; 82550; 82565; 84450; 84460; 84520; 85025

== ENCOUNTER 2024-04-26 08:52 | Outpatient (REF) | payer MEDICARE, SELFPAY ==
[2024-04-26 09:32] LABS: Estimated Average Glucose 105 mg/dL; Hemoglobin A1c % 5.3 % (<6.0)
[2024-04-26 10:06] LABS: Alanine Aminotransferase 6 U/L (0-31); Alkaline Phosphatase 77 U/L (39-117); Anion Gap 15 (12-20); Aspartate Amino Transferase 15 U/L (5-31); Bilirubin Direct 0.1 mg/dL (0.0-0.5); Bilirubin Total 0.3 mg/dL (0.0-1.0); Blood Urea Nitrogen 13 mg/dL (9-16); Carbon Dioxide 26 mmol/L (22-29); Chloride 101 mmol/L (96-108); Estimated Glomerular Filt Rate > 60; Glucose Fasting 108 mg/dL (60-99); Potassium 4.1 mmol/L (3.3-5.1); Sodium 138 mmol/L (135-145); Total Protein 7.8 g/dL (6.5-8.0)
== END 2024-04-26 08:53 | disposition home or self-care (01) ==
LOC: HO.LAB 08:52
PROVIDERS: PCP Family Medicine; Visit Provider Family Medicine
DX: I10 Essential (primary) hypertension (principal); R73.9 Hyperglycemia, unspecified
CPT/HCPCS: 36415; 80051; 80076; 82565; 82947; 83036; 84520

== ENCOUNTER 2024-07-26 10:44 | Outpatient (REF) | payer MEDICARE, SELFPAY ==
--- NOTE | ~2024-07-26 | MM_ITS ---
EXAMINATION: MM SCREENING DIGITAL BREAST TOMOSYNTHESIS, BILATERAL CLINICAL INFORMATION: Screening. Asymptomatic. COMPARISON: Mammography: Comparison is made with available priors TECHNIQUE: Digital breast mammography with tomosynthesis is performed in both the craniocaudal and mediolateral oblique views along with computer-aided detection (CAD). FINDINGS: The breasts are heterogeneously dense, which may obscure small masses (ACR BI-RADS breast composition Category c). There are no significant masses, abnormal calcifications, or other abnormalities. MM/MM tomosynthesis screening BI IMPRESSION: No mammographic evidence of malignancy. ASSESSMENT: BI-RADS BI-RADS 1 - Negative RECOMMENDATION: Routine annual mammography screening. 1 year F/U This examination should not preclude the clinical evaluation of a suspicious palpable abnormality. This patient's information was entered into a reminder system with a target due date for their next mammogram. Electronically signed by: Andra Calix DO 08/06/2024 09:21 AM EDT
== END 2024-07-26 10:45 | disposition home or self-care (01) ==
LOC: HO.MAMMO 10:44
PROVIDERS: PCP Family Medicine; Visit Provider Family Medicine
DX: Z12.31 Encounter for screening mammogram for malignant neoplasm of breast (principal)
CPT/HCPCS: 77063; 77067

== ENCOUNTER → 2024-07-26 11:15 | Outpatient (BNV) | payer MEDICARE, SELFPAY | PROVIDERS: PCP Family Medicine; Visit Provider Internal Medicine | DX: Z12.31 Encounter for screening mammogram for malignant neoplasm of breast (principal) | CPT/HCPCS: 77063; 77067 ==

== ENCOUNTER 2024-10-12 08:59 | Outpatient (REF) | payer MEDICARE, SELFPAY ==
[2024-10-12 09:28] LABS: MANUAL DIFF FLAG NO
[2024-10-12 09:56] LABS: Basophils Absolute Auto 0.1 X10*3/uL (0.0-0.2); Basophils Percent Auto 0.8 % (0-2); Eosinophils Absolute Auto 0.1 X10*3/uL (0.0-0.4); Eosinophils Percent Auto 1.2 % (0-4); Hematocrit 32.2 % (37.0-47.0); Hemoglobin 10.7 g/dl (12.0-16.0); Imm Gran Abs Auto 0.03 X10*3/uL (0.00-0.03); Imm Gran Pct Auto 0.4 % (0.0-0.4); Lymphocytes Absolute Auto 1.7 X10*3/uL (1.2-4.9); Lymphocytes Percent Auto 20.3 % (20-40); Mean Corpuscular HGB Conc 33.2 g/dl (31.0-35.0); Mean Corpuscular Hemoglobin 29.6 pg (27.0-33.0); Mean Platelet Volume 9.5 fL (9.4-12.3); Monocytes Absolute Auto 0.6 X10*3/uL (0.1-1.2); Monocytes Percent Auto 7.6 % (2-11); Neutrophils Absolute Auto 5.9 x10*3/uL (2.0-8.3); Neutrophils Percent Auto 69.7 % (45-73); Platelet Count 263 X10*3/uL (160-400); Red Blood Count 3.62 X10*6/uL (4.20-5.50); Red Cell Distribution Width 13.5 % (11.0-16.0); White Blood Count 8.4 X10*3/uL (4.8-10.8)
[2024-10-12 11:35] LABS: Alanine Aminotransferase 11 U/L (0-31); Anion Gap 12 (12-20); Aspartate Amino Transferase 19 U/L (5-31); Blood Urea Nitrogen 15 mg/dL (9-16); Carbon Dioxide 28 mmol/L (22-29); Chloride 102 mmol/L (96-108); Estimated Glomerular Filt Rate > 60; Potassium 4.8 mmol/L (3.3-5.1); Sodium 137 mmol/L (135-145)
--- OUTSIDE RECORDS SUMMARY | 2024-10-13 19:10 | XMS_ITS | Data Portability ---
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 Pt reports she noticed some redness to both eyes a day or so ago. She denies any itiching, discomfort or vision changes. She states that there has been some watery drainage. She denies URI sx or hx of seasonal allergies. Exam: Pt is A/Ox3, non-toxic appearing, VSS, HRR, resp reg and unlabored on RA, lungs CTA bilat. Pt noted to area of erythema to the lower left lash line consistent with a stye, no injection noted to the conjuntivia bilat. DDx considered, but not limited to: Stye: likely given presentation and location of the area of inflammation to the lower lash line of the left eye Conjuntivitis: unlikely given no reports of discomfort or itching, no injection noted to the eye. Allergic Rhinitis: unlikely, no other HEENT sx, denies prior hx. Work up/Results: no further tests indicated at this time. Plan/Discussion: Pt advised that the stye will self resolve. She can apply a warm compress to the area several times a day to help with any discomfort. Patients PCP contacted and updated on patient status. Patient verbalized understanding of discharge instructions and when to follow up with PCP/911/ED as needed. Patient in agreement with current plan and treatment. In order to obtain further information and compare any laboratory results/values, I have accessed old patient records. This information was pertinent in my medical decision making today. krystal Not available 03/11/2020 16:31:13 Plan of Treatment Reminders Order Date Submit Date Provider Last Modified By Organization Details Last Modified Time Details Appointments None record ed. Lab None record ed. Referral None record ed. Procedures None record ed. Surgeries None record ed. Imaging None record ed. Medication Orders None record ed. Patient TargetsNo targets recorded. Patient Instructions Encounter Date Encounter Id Patient Instructions Last Modified By Organization Details Last Modified Time 03/11/2020 [id number] Thank you for yo ur visit with [facility] today. We cannot always find the exact cause of your symptoms during your initial visit. Please follow up with your primary care provider or specialist to be rechecked or seek medical attention if your symptoms do not go away or get worse. If you develop any new or worsening symptoms and need after hours care, please go to nearest ER and/or call 911. If you have additional concerns or develop a change in your condition between 8am-10pm, please call [facility] at [phone] to help navigate your care. krystal Not available 03/11/2020 15:14:13 Reason for Referral None Reported. Problems Name Problem SNOMED Code Status Onset Date Resolution Date Notes Provider Name and Address Organization Details Recorded Time Hyperlipidemi a 13611543 Active 2019 SHAHRAM AGUILAR NP [address] [place], [address], [place] [facility] 0 15:11:26 Problem Notes None recorded. Medical Equipment None Reported. Allergies Allergen ID Allergen Name Allergen Category Reaction Reaction Severity Criticality Documentation Date Start Date Code Code System Note Provider Name and Address Organization Details Recorded Time 463126 Substance with sulfonami de structure and antibacte rial mechanism of action (substanc e) medicatio n Not available Not available Not available 03/11/2020 41100 8003 SNOMED SHAHRAM AGUILAR NP [address] [place], [address], [place] [facility] 0 15:09:48 123153 propranol ol medicatio n Not available Not available Not available 03/11/2020 8787 RxNorm SHAHRAM AGUILAR NP [address] [place], [address], [place] [facility] 0 15:10:16 Medications Name Sig Start Date Stop Date Status Note LastModified by Organization Details LastModified Time primidone 50 mg tablet active Not Available Not Available No t Available atorvastatin 20 mg tablet active Not Available Not Available Not Available trazodone 50 mg tablet active Not Available Not Available No t Available ranitidine 300 mg tablet 2019 completed Not Available Not Available Not Available famotidine 40 mg tablet active Not Available Not Available No t Available divalproex 500 mg tablet,delayed release active Not Available Not Available Not Available olanzapine 7.5 mg tablet active Not Available Not Available No t Available lorazepam 0.5 mg tablet active Not Available Not Available No t Available amlodipine 10 mg tablet active Not Available Not Available No t Available carbidopa 10 mg-levodopa 100 mg tablet active Not Available Not Availabl e Not Available metoprolol succinate ER 25 mg tablet,extende d release 24 hr active Not Available Not Available Not Available losartan 100 mg tablet active Not Available Not Available No t Available Vitals Date Recorded Body temperature Oxygen saturation Oxygen saturation in Arterial blood by Pulse oximetry Heart rate Respiratory rate Systolic blood pressure Diastolic blood pressure Provider Name and Address Organization Details Last Updated DateTime 0 97.3 [degF] 98 % 98 % 78 /min 18 /min 128 mm[Hg] 86 mm[Hg] Not Available [facility] 0 15:13:14 Social History Question Answer Notes LastModified by Organizat ion Details LastModified Time Tobacco Smoking Status Former Smoker SHAHRAM AGUILAR, [employer] [address] [place], [address], [place] [facility] 03/11/2020 15:13:14 Do You Have An Advance Directive? Yes Information not available 03/11/2020 What Is Your Code Status? DNR Information not available 03/11/2020 Within The Past 12 Months, Has It Happened That The Food You Bought Just Didn't Last And You Didn't Have Money To Get More. No Information not available 03/11/2020 Within The Past 12 Months, Have You Worried That Your Food Would Run Out Before You Got Money To Buy More. No Information not available 03/11/2020 Fall Risk: Do You Feel Unsteady When Standing Or Walking? No Information not available 03/11/2020 We Know That How And When People Interact With Friends And Family Can Be Very Different From Person To Person. How Often Do You Have The Opportunity To See Or Talk To People That You Care About And Feel Close To? (Ex: Talking To Friends On The Phone Or Visiting Friends Or Family Or Going To Bahai Or Club Meetings) 3 Or 4 Times Per Week Information not available 03/11/2020 Excessive Alcohol Or Drug Use No Information not available 03/11/2020 We Know From Many Of Our Patients That Covering All Of Their Costs Can Be Difficult At Times. This Can Cause Stress And Impact Health. In The Past Year, Have You Been Unable To Get Any Of The Following When It Was Really Needed? No Information not available 03/11/2020 What Is Your Housing Situation Today? I Have Housing Information not available 03/11/2020 Would You Like Help Connecting To Resources? None Information not available 03/11/2020 Sex: Unknown Functional Status None recorded. Mental Status None recorded. Family History Nothing Reported Notes:pt doesn't know [facility] Medical History Condition Response Coronary Artery Disease Y COPD N Depression Y Diabetes N Cancer N Stroke N Asthma N High Cholesterol Y Pulmonary Embolism N Hypertension Y Kidney Disease N Gynecological HistoryNo gynecological history recorded. Obstetrics History GPAL:G 0 P 0 0 0 0 Past Encounters Encounter ID Performer Location Encounter Start Date Encounter Closed Date Diagnosis/Indication Diagnosis SNOMED-CT Code Diagnosis ICD10 Code [id number] SHAHRAM AGUILAR NP [facility] [address] [place] [address] [place] [address] 03/11/2020 15:06:16 03/13/2020 17:11:40 Hordeolum externum of left eyelid [id number] 35385 H00.016 Health Concerns Section Related Observation LastModified by Organization Detai ls LastModified Time None Recorded Concern Status LastModified by Organization Details LastModified Time None Recorded Advance Directives Directive Y: Payers Encounter Date Sequence Insurance Name Policy Number Policy Godfrey Covered Member ID Godfrey Member ID Guarantor Name 03/11/2020 1 MEDICARE B-[place]: [facility] [employer] Cally Alejandre [id number] Cally Alejandre 03/11/2020 2 [facility] ([place]MN[place]) Cally Alejandre [id number] Cally Alejandre Notes Date Note Type Note Provider Name and Address Organization Details Recorded Time 03/11/2020 text/html pt reports some pinkness and redness in both her eyes that started a day or so ago. Denies itching or pain. Reports some drainage from the eyes. Denies any discomfort to the eye. Denies any change in vision. Pt denies a hx of seasonal allergies. SHAHRAM AGUILAR NP [address] [place], [address], [place] [facility] 03/11/2020 16:31:18 OBGyn Episode No OBEpisode recorded.
== END 2024-10-12 09:00 | disposition home or self-care (01) ==
LOC: HO.LAB 08:59
PROVIDERS: PCP Family Medicine; Visit Provider Family Medicine
DX: I10 Essential (primary) hypertension (principal); D64.9 Anemia, unspecified; E78.00 Pure hypercholesterolemia, unspecified; Z79.899 Other long term (current) drug therapy
CPT/HCPCS: 36415; 80051; 82550; 82565; 84450; 84460; 84520; 85025

== ENCOUNTER 2025-04-18 13:42 | Outpatient (REF) | payer MEDICARE, SELFPAY ==
[2025-04-18 13:56] LABS: MANUAL DIFF FLAG NO
[2025-04-18 14:36] LABS: Basophils Absolute Auto 0.1 X10*3/uL (0.0-0.2); Basophils Percent Auto 0.7 % (0-2); Eosinophils Absolute Auto 0.1 X10*3/uL (0.0-0.4); Eosinophils Percent Auto 0.7 % (0-4); Hematocrit 32.7 % (37.0-47.0); Hemoglobin 11.1 g/dl (12.0-16.0); Imm Gran Abs Auto 0.03 X10*3/uL (0.00-0.03); Imm Gran Pct Auto 0.4 % (0.0-0.4); Lymphocytes Absolute Auto 1.7 X10*3/uL (1.2-4.9); Lymphocytes Percent Auto 25.6 % (20-40); Mean Corpuscular HGB Conc 33.9 g/dl (31.0-35.0); Mean Corpuscular Hemoglobin 29.8 pg (27.0-33.0); Mean Corpuscular Volume 87.7 fL (80.0-98.0); Mean Platelet Volume 10.1 fL (9.4-12.3); Monocytes Absolute Auto 0.5 X10*3/uL (0.1-1.2); Monocytes Percent Auto 7.7 % (2-11); Neutrophils Absolute Auto 4.4 x10*3/uL (2.0-8.3); Neutrophils Percent Auto 64.9 % (45-73); Platelet Count 270 X10*3/uL (160-400); Red Blood Count 3.73 X10*6/uL (4.20-5.50); Red Cell Distribution Width 14.3 % (11.0-16.0); White Blood Count 6.8 X10*3/uL (4.8-10.8)
[2025-04-18 15:11] LABS: Alanine Aminotransferase 8 U/L (0-31); Anion Gap 14 (12-20); Aspartate Amino Transferase 15 U/L (5-31); Blood Urea Nitrogen 18 mg/dL (9-16); Carbon Dioxide 25 mmol/L (22-29); Chloride 101 mmol/L (96-108); Estimated Glomerular Filt Rate > 60; Sodium 136 mmol/L (135-145)
== END 2025-04-18 13:43 | disposition home or self-care (01) ==
LOC: HO.LAB 13:42
PROVIDERS: PCP Family Medicine; Visit Provider Family Medicine
DX: I10 Essential (primary) hypertension (principal); D64.9 Anemia, unspecified; E78.00 Pure hypercholesterolemia, unspecified
CPT/HCPCS: 36415; 80051; 82550; 82565; 84450; 84460; 84520; 85025

== ENCOUNTER 2025-06-01 10:18 | Outpatient (AMB) | payer MEDICARE, SELFPAY ==
--- NOTE | 2025-06-01 10:29 | A.OFFVIS_ITS ---
Intake Visit Reasons: 6 month tremor Allergies propranolol (PROPRANOLOL) Allergy (Unknown, Verified 06/01/25 10:37) CONFUSSION, aggitation Sulfa (Sulfonamide Antibiotics) Allergy (Unknown, Verified 06/01/25 10:37) HIVES Medication List - Last Reconciled 06/01/25 by Ursula Flores CNP amlodipine 1 tab PO DAILY atorvastatin 1 tab PO BEDTIME carbidopa-levodopa 10-100 mg 2 tabs PO QID divalproex 1 tab PO BEDTIME famotidine 1 tab PO DAILY@1700 glucosamine sulfate (Glucosamine) 1,000 mg PO BID lorazepam 0.5 mg PO BID losartan 1 tab PO DAILY metoprolol succinate ER 1 tab PO BEDTIME olanzapine 5 mg PO DAILY primidone 50 mg PO BID tramadol 50 mg PO Q8H PRN zolpidem 10 mg PO BEDTIME HPI Comments Details: Doing okay, living in assisted living facility. Tremors have been stable, worse when nervous. No significant functional impairment. No difficulty eating, drinking, or swallowing. She finds it is easier to eat with a spoon. Handwriting was okay if she took her time when writing. Walking with walker, no falls. Occasionally has trouble getting up from chair. No difficulty turning in bed. Sleep was still not so good. Mood has been okay. Working with psychiatrist. Memory was about the same, can be forgetful at times. Handwriting not as good as before. Does not want to consider DBS right now. She is treated for tremors with mixed tremors, essential tremors and Parkinsonian tremor. She has been on psychotropic medications for a long time and it is unclear if some of this is drug-induced parkinsonism. Occasionally, she forgets things. No other cognitive issues. [facility] Medical History (Updated 06/01/25 @ 10:36 by Usrula Flores CNP) Drug-induced parkinsonism MCI (mild cognitive impairment) Parkinson disease 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 GERD (gastroesophageal reflux disease) Arthritis Bipolar disorder Hypertension Hyperlipidemia Social History Alcohol intake: never Patient Tobacco Use Status: Never used Tobacco Advance Directives Date on File: 12/03/22 service: No Current occupational status: retired Review of Systems Const Denies chills, Denies daytime sleepiness, Reports difficulty sleeping, Denies fatigue, Denies fever(s), Denies frequent falls, Denies headache(s), Denies increased appetite, Denies poor appetite, Denies snoring, Denies weakness, Denie s weight gain and Denies weight loss Eyes Denies loss of vision ENT Denies vertigo, Denies dizziness, Denies headache(s) and Denies neck pain Card Denies chest pain at rest, Denies chest pain with activity, Denies syncope, Denies leg edema, Denies palpitations, Denies dyspnea and Denies dyspnea on exertion Resp Denies cough, Denies dyspnea, Denies dyspnea on exertion and Denies snoring GI Denies abdominal pain, Denies constipation, Denies heartburn, Denies diarrhea and Denies nausea Denies urinary frequency, Denies urinary incontinence and Denies urinary urgency Musc Denies abnormal gait, Denies back pain, Denies myalgias, Reports arthralgias, Denies neck pain, Denies numbness and Denies tingling Neuro Denies abnormal gait, Denies vertigo, Denies dizziness, Denies syncope, Denies frequent falls, Denies headache(s), Denies lack of coordination, Denies loss of vision, Denies memory loss, Denies numbness, Denies Other visual disturbances, Denies restless legs, Denies seizure-like activity, Denies tingling, Denies paresthesias, Reports tremor(s) and Denies weakness Psych Reports anxiety, Reports depression, Denies auditory hallucinations, Denies memory loss and Denies visual hallucinations Endo Denies fatigue and Denies palpitations Physical Exam Const Other: General Appearance:? normal, in no acute distress. Heart:? S1, S2 normal, no murmurs. Lungs:? clear anteriorly and posteriorly. Musculoskeletal:? normal. Extremities:? no edema. Psych:? alert, oriented, cognitive function intact, cooperative with exam. Neuro Other: Abnormal Neurological Findings: Mild bradykinesia, slight decrease in facial expression and blinking frequency. Intermittent head and jaw tremor at rest. Resting tremor of the hands R > L intermittently becoming?more pronounced. Slight tremor of sustained upper extremities that increases on finger to nose. Walking with walker.? Mental Status: alert and oriented X 3. Normal attention, orientation, memory, and affect. Cranial Nerves: Pupils are equal, round, and reactive to light. External ocular muscles are intact. Visual walter are full, no ptosis. Face is symmetrical, no facial weakness or droop. Facial sensations are normal. Tongue protrudes in midline. Palate elevates symmetrically. Shoulder shrugging is normal Motor Examination: Normal muscle tone, bulk and strength. No atrophy or fascic ulations. No drift of the extended upper extremities. DTR 2+. Plantars are flexor. Sensory Exam: Normal light touch, temperature, pinprick, vibration, and joint- position sensations. Rhomberg sign is absent. Coordination: No ataxia. No titubation. Gait Exam: With walker, good steppage. Cerebellar Signs: [id number] as above. Extrapyramidal System: Head tremor, jaw and lip tremor. Resting tremor of the hands, R > L. Tremor of sustained upper extremities held out that increases with finger to nose test. No rigidity. Mild decrease in facial expressions and blinking frequency. Slight bradykinesia. No bradyphrenia. Speech: Mild voice tremor. Assessment & Plan Assessment & Plan (1) Benign essential tremor: Code(s): G25.0 - Essential tremor Category: Medical Plan: Continue primidone 50mg 1 tablet orally twice a day. (2) Drug-induced parkinsonism: Code(s): G21.19 - Other drug induced secondary parkinsonism Category: Medical Plan: Continue carbidopa-levodopa 10-100mg 2 tablets orally four times a day (3) MCI (mild cognitive impairment): Code(s): G31.84 - Mild cognitive impairment of uncertain or unknown etiology Category: Medical Plan: Stay physically and socially active, use walker. Coding Level of Care Code Est Pt Level 4 (36809) Diagnoses Benign essential tremor G25.0 Drug-induced parkinsonism G21.19 MCI (mild cognitive impairment) G31.84
== END 2025-06-01 10:52 | disposition home or self-care (01) ==
LOC: HO.HSM 10:18
PROVIDERS: PCP Family Medicine; Referring Provider Family Medicine; Visit Provider Registered Nurse
DX: G25.0 Essential tremor (principal); G21.19 Other drug induced secondary parkinsonism; G31.84 Mild cognitive impairment of uncertain or unknown etiology
CPT/HCPCS: 99214

== ENCOUNTER → 2025-06-01 10:18 | Outpatient (BNVA) | payer MEDICARE, SELFPAY | PROVIDERS: PCP Family Medicine; Referring Provider Family Medicine; Visit Provider Registered Nurse | DX: G25.0 Essential tremor (principal); G21.19 Other drug induced secondary parkinsonism; G31.84 Mild cognitive impairment of uncertain or unknown etiology | CPT/HCPCS: 99212 ==

== ENCOUNTER 2025-07-20 09:11 | Outpatient (AMB) | payer MEDICARE, SELFPAY ==
--- NOTE | 2025-07-20 07:53 | MHC.PC.OV ---
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 Required: No Accompanied by: Self / Same As Patient Allergies propranolol (PROPRANOLOL) Allergy (Unknown, Verified 07/20/25 07:54) CONFUSSION, aggitation Sulfa (Sulfonamide Antibiotics) Allergy (Unknown, Verified 07/20/25 07:54) HIVES Medication List - Last Reconciled 07/20/25 by ZACK Mata amlodipine 1 tab PO DAILY atorvastatin 1 tab PO BEDTIME carbidopa-levodopa 10-100 mg 2 tabs PO QID divalproex 1 tab PO BEDTIME glucosamine sulfate (Glucosamine) 1,000 mg PO BID lorazepam 0.5 mg PO BID losartan 1 tab PO DAILY metoprolol succinate ER 1 tab PO BEDTIME olanzapine 5 mg PO DAILY primidone 50 mg PO BID trazodone 200 mg PO BEDTIME PRN Tobacco use date assessed: 07/20/25 Fall risk assessment: No Falls in past year Last assessed Fall Risk: 07/20/25 Dental Screening Dental Screen Date: 07/20/25 Did you have a dental visit in the last 12 months?: Yes Did you have a dental problem in the last 6 months where you did not have access to dental care?: No HPI HPI Comments History of Present Illness Details The patient is a 80-year-old female with Mild cognitive impairment, HTN, HLD, Anemia, GERD, Bipolar disorder, Drug induced Parkinson's and arthritis presenting with concerns regarding back pain associated with rectal exams and colonoscopy. The back pain began approximately five years ago during a rectal exam after consuming several drinks of white wine. Initially, rectal exams were uncomfortable but not painful; however, subsequent exams became excruciatingly painful, with pain radiating from the rectum to the back. She states she was told she complained of pain during her last colonscopy as well. She was concerned there is something wrong with her back. She had a cologuard done 06/16/2025 that was negative. She states her back is not painful except when some type of exam involving her rectum is done. The patient states she was told there is something wrong with her liver function based on a urine sample, although recent blood work in April showed normal liver and kidney function. The patient is currently on Amlodipine 10mg and Losartan for hypertension. Her BP today was 138/80. She is also taking Metoprolol, which she believed was for her heartbeat irregularities. She also sees a neurologist for a tremor and Parkinson's. She is on Carbidopa-Levodopa and Primidone. She has a psychiatrist who contacts her via telephone due to her mobility issues. She is on Trazodone, Olanzapine and Lorazepam. Patient was agitated today because she thougt she was seeing Dr. Spaulding. She would like to be transferred to Dr. Vega. .Patient was informed and verbally consented to the use of an ambient scribe for clinic note documentation during this visit. 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 Father No problems noted. Social History Housing: Assisted Living Facility Alcohol intake: never Patient Tobacco Use Status: Former Tobacco user e-Cigarette/Vaping Use: Former Use Advance Directives Date on File: 12/03/22 service: No Current occupational status: retired Cognitive needs: Yes (walker) Hearing needs: No Vision needs: Yes (rx glasses) Questionnaire PHQ-9 Over the last 2 weeks, how often have you been bothered by any of the following problems? 1. Little interest or pleasure in doing things: not at all 2. Feeling down, depressed, or hopeless: nearly every day 3. Trouble falling or staying asleep, or sleeping too much: nearly every day (trouble sleeping) 4. Feeling tired or having little energy: nearly every day (tired because of lack of sleeping ) 5. Poor appetite or overeating: not at all 6. Feeling bad about yourself - or that you are a failure or have let yourself or your family down: not at all 7. Trouble concentrating on things, such as reading the newspaper or watching television: not at all 8. Moving or speaking so slowly that other people could have noticed. Or the opposite - being so fidgety or restless that you have been moving around a lot more than usual: not at all 9. Thoughts that you would be better off or of hurting yourself in some way: not at all Total score: 9 Source: Developed by Drs. Jose Daniel Boone, Esther Nunez, Sam Olivia and colleagues, with an educational asya from [employer]. Thrive Questionnaire Date Thrive assessed: 07/20/25 I am a: Patient Within the past 12 months, did the food you bought not last and you didn't have the money to get more?: Never true Within the past 12 months, did you worry whether your food would run out before you got money to buy more?: Never true Do you have trouble paying for medicines?: No Do you have trouble getting transportation to medical appointments?: No Do you have trouble paying your heating and electricity bill?: No Do you have trouble taking care of your child, family member or friend?: No Do you have trouble with day-to-day activities such as bathing, preparing meals, shopping, managing finances, etc.?: No Are you currently unemployed and looking for a job?: No Are you interested in more education?: No THRIVE Score: 0 AUDIT C Alcohol Use Questionnaire (AUDIT-C) 1. How often do you have a drink containing alcohol?: Never 3. How often do you have six or more drinks on one occasion?: Never Total Score: 0 LILLY-7 AMB Questionnaire LILLY-7 Date LILLY - 7 assessed: 07/20/25 Feeling nervous, anxious, or on edge: 3 = Nearly every day (anxious regarding her appt today) Not being able to stop or control worryin = Not at all Worrying too much about different things: 0 = Not at all Trouble relaxin = Not at all Being so restless that it is hard to sit still: 0 = Not at all Becoming easily annoyed or irritable: 0 = Not at all Feeling afraid as if something awful might happen: 0 = Not at all Total LILLY-7 score (0-4 normal; 5-9 mild; 10-14 moderate; 15-21 severe): 3 Source: Developed by Drs. Jose Daniel Boone, Esther Nunez, Sam Olivia and colleagues, with an educational asya from [employer]. Review of Systems Const Details: CONSTITUTIONAL Negative HEAD/NECK Negative RESPIRATORY Negative CARDIOVASCULAR Negative GASTROINTESTINAL Denies current abdominal pain, reports past liver function concerns MUSCULOSKELETAL Reports back pain associated with rectal exams and colonoscopy No other back pain multiple joint pain NEUROLOGICAL Tremor PSYCHIATRIC mild cognitive decline Bipolar depression Physical exam (Primary Care) Vital Signs: Last Vital Signs Pulse 68 07/20/25 09:20 BP 138/80 07/20/25 09:20 Pulse Ox 98 07/20/25 09:20 Oxygen Delivery Method Room Air 07/20/25 09:20 BMI result Body Mass Index 28.3 GENERAL Well developed, Well nourished, in no apparent distress, using walker HEENT Head-Normocephalic Neck- Supple, No lymphadenopathy, thyroid WNL RESPIRATORY Normal I:E, Clear to auscultation CARDIOVASCULAR Regular, rate and rhythm, No murmurs or rubs GASTROINTESTINAL Soft, nontender, normal bowel sounds, no masses MUSCULOSKELETAL Back- nontender Joints- no swelling or deformity NEUROLOGICAL Gait slow with walker Lip smacking and tremor noted PSYCHIATRIC Oriented to person, place and time Mood and affect anxious Appearance WNL Speech WNL Thought processes WNL Tobacco/Smoking Status: Tobacco use Status Tobacco use date assessed 07/20/25 07/20/25 07:55 Patient Tobacco Use Status Former Tobacco user 07/20/25 09:33 e-Cigarette/Vaping Use Former Use 07/20/25 09:33 PHQ-9: PHQ-9 Score PHQ-9: Total score 9 07/20/25 10:43 Thrive Assessment: Date of Thrive Assessment Date Thrive assessed 07/20/25 07/20/25 07:55 Results Reviewed Results Reviewed: - Labs: Blood work in April showed normal liver and kidney function - Tests: Cologuard test result negative Coding Level of Care Code New Pt New Pt Level 4 (12723) Patient Type New Diagnoses Bipolar disorder, in partial remission, most recent episode depressed F31.75 Active/Remission status: in partial remission Most recent bipolar episode type: depressed Primary hypertension I10 Hypertension type: primary hypertension MCI (mild cognitive impairment) G31.84 Drug-induced parkinsonism G21.19 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 (2) Hypertension: Comment: BP today was 138/80 Code(s): I10 - Essential (primary) hypertension Category: Medical Qualifiers: Hypertension type: primary hypertension Qualified Code(s): I10 - Essential (primary) hypertension Plan: The patient is on Amlodipine and Losartan for hypertension management. Blood pressure was noted to be stable during the visit. She also takes Metoprolol for her heart rate. Patient will continue current medications. Will monitor. Patient will follow up in 3 months. 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 We also reviewed the management of her back pain, which occurs during rectal exams and colonoscopy, and agreed to address it during future procedures if necessary. The patient was informed about the normal liver function results from recent blood work, despite previous urine sample concerns. Patient Instructions: - Follow up in three months unless symptoms worsen. - Contact the office if experiencing new or worsening symptoms. - Continue current medications as prescribed. - Use the provided contact number for medication refills if needed.
[2025-07-20 09:20] VITALS: BP 138/80; PULSE 68; O2SAT 98; BMI 28.3
== END 2025-07-20 10:09 | disposition home or self-care (01) ==
LOC: HO.HMCHD 09:11
PROVIDERS: PCP Internal Medicine; Visit Provider Physician Assistant Medical
DX: F31.75 Bipolar disorder, in partial remission, most recent episode depressed (principal); I10 Essential (primary) hypertension; G31.84 Mild cognitive impairment of uncertain or unknown etiology; G21.19 Other drug induced secondary parkinsonism; G25.1 Drug-induced tremor

== ENCOUNTER → 2025-07-20 09:11 | Outpatient (BNVA) | payer MEDICARE, SELFPAY | PROVIDERS: PCP Internal Medicine; Visit Provider Physician Assistant Medical | DX: Z76.89 Persons encountering health services in other specified circumstances (principal); F31.75 Bipolar disorder, in partial remission, most recent episode depressed; I10 Essential (primary) hypertension; G31.84 Mild cognitive impairment of uncertain or unknown etiology; G21.19 Other drug induced secondary parkinsonism; G25.1 Drug-induced tremor; Z13.31 Encounter for screening for depression; Z13.39 Encounter for screening examination for other mental health and behavioral disorders | CPT/HCPCS: 96127; 99202 ==

== ENCOUNTER 2025-07-29 08:45 | Outpatient (REF) | payer MEDICARE, SELFPAY ==
--- NOTE | ~2025-07-29 | MM_ITS ---
EXAMINATION: MM SCREENING DIGITAL BREAST TOMOSYNTHESIS, BILATERAL CLINICAL INFORMATION: Screening. Asymptomatic. COMPARISON: Mammography: Comparison is made with available priors TECHNIQUE: Digital breast mammography with tomosynthesis is performed in both the craniocaudal and mediolateral oblique views along with computer-aided detection (CAD). FINDINGS: The breasts are heterogeneously dense, which may obscure small masses. Right marker clip. There are no significant masses, abnormal calcifications, or other abnormalities. MM/MM tomosynthesis screening BI IMPRESSION: No mammographic evidence of malignancy. ASSESSMENT: BI-RADS Category 2: Benign RECOMMENDATION: Routine annual mammography screening. 1 year F/U This examination should not preclude the clinical evaluation of a suspicious palpable abnormality. This patient's information was entered into a reminder system with a target due date for their next mammogram. Electronically signed by: Andra Calix DO 08/01/2025 09:24 AM EDT
== END 2025-07-29 08:46 | disposition home or self-care (01) ==
LOC: HO.MAMMO 08:45
PROVIDERS: PCP Internal Medicine; Visit Provider Family Medicine
DX: Z12.31 Encounter for screening mammogram for malignant neoplasm of breast (principal)
CPT/HCPCS: 77063; 77067

== ENCOUNTER → 2025-07-29 09:15 | Outpatient (BNV) | payer MEDICARE, SELFPAY | PROVIDERS: PCP Internal Medicine; Visit Provider Internal Medicine | DX: Z12.31 Encounter for screening mammogram for malignant neoplasm of breast (principal) | CPT/HCPCS: 77063; 77067 ==

== ENCOUNTER 2025-09-27 12:08 | Outpatient (REF) | payer MEDICARE, SELFPAY ==
--- NOTE | ~2025-09-27 | XR_ITS ---
EXAMINATION: XR ABDOMEN KUB CLINICAL INDICATION: K59.00 - Constipation, unspecified COMPARISON: None available. TECHNIQUE: AP] view of the abdomen. FINDINGS: Scattered air-fluid levels in nondilated loops of small and large bowel. No free air. No large stool burden. No suspicious calcifications. Right upper quadrant surgical clips. Degenerative changes of the spine and curvature to the left. XR/XR KUB IMPRESSION: Nonobstructive bowel gas pattern. No evidence of constipation. Electronically signed by: Danielle Ward MD 09/27/2025 12:31 PM ALESSANDRO
== END 2025-09-27 12:09 | disposition home or self-care (01) ==
LOC: HO.XRAY 12:08
PROVIDERS: PCP Internal Medicine; Visit Provider Internal Medicine
DX: K59.00 Constipation, unspecified (principal)
CPT/HCPCS: 74018

== ENCOUNTER → 2025-09-27 12:14 | Outpatient (BNV) | payer MEDICARE, SELFPAY | PROVIDERS: PCP Internal Medicine; Visit Provider Radiology Diagnostic Radiology | DX: K59.00 Constipation, unspecified (principal) | CPT/HCPCS: 74018 ==

== ENCOUNTER 2025-10-21 12:40 | Outpatient (AMB) | payer MEDICARE, SELFPAY ==
--- NOTE | 2025-10-21 12:48 | MHC.PC.OV ---
Vital Signs 10/21/25 12:50 Height 5 ft 1 in Weight 152 lb 4 oz BMI 28.8 BP 104/64 Blood Pressure Location Lt brachial Position Sitting Respiration 16 Pulse 93 Pulse Source Pulse Oximeter Temp 96.9 F Temp Source Temporal Artery Scan Pulse Oximetry (%) 97 Oxygen Delivery Method Room Air Intake Visit Reasons: new pt - see comments, requesting 90 day refill of metoprolol, former Zach patient Auto Overhauler Required: No Accompanied by: Self / Same As Patient Allergies propranolol (PROPRANOLOL) Allergy (Unknown, Verified 10/21/25 12:49) CONFUSSION, aggitation Sulfa (Sulfonamide Antibiotics) Allergy (Unknown, Verified 10/21/25 12:49) HIVES Medication List - Last Reconciled 10/21/25 by Lorraine Garcia MD amlodipine 1 tab PO DAILY atorvastatin 1 tab PO BEDTIME carbidopa-levodopa 10-100 mg 2 tabs PO QID divalproex 1 tab PO BEDTIME glucosamine sulfate (Glucosamine) 1,000 mg PO BID lorazepam 1 mg PO DAILY PRN losartan 1 tab PO DAILY metoprolol succinate ER 1 tab PO BEDTIME olanzapine 10 mg PO BEDTIME primidone 50 mg PO BID trazodone 200 mg PO BEDTIME PRN Tobacco use date assessed: 07/20/25 Fall risk assessment: No Falls in past year Last assessed Fall Risk: 10/21/25 Dental Screening Dental Screen Date: 07/20/25 HPI HPI Comments History of Present Illness Details The patient is a 80 year old female presenting for a follow-up to discuss her multiple chronic medical issues. Previous Dr. Serrano patient. Insomnia: The patient has been experiencing trouble sleeping for months, though it was not precipitated by any significant life changes. Her psychiatrist, Dr. Herb Riley, is aware and has been adjusting her medications. She denies snoring, waking up gasping for air, or having a history of a sleep study. Her [place] Sleepiness Scale score is 0, as she denies dozing during various daytime situations, including attempts to nap. Chronic Constipation: The patient has a history of chronic constipation and past GI bleeding. She was hospitalized in 2022 for severe constipation that required disimpaction. MiraLAX has stopped being effective, but she has found that prune juice helps, and she is now having daily bowel movements. Perseveration about liver cirrhosis: The patient expressed concern about having cirrhosis of the liver, stemming from an abnormal urine test four years ago and an episode of heavy drinking five years ago. She reports that subsequent blood work at that time was normal. A CT scan of the abdomen and pelvis in 2022, done for constipation, showed a normal liver with no signs of cirrhosis. She does not drink alcohol currently. Reassured patient that she did not have cirrhosis. Colon Cancer Screening: The patient was due for a colonoscopy but declined because of fear of the pain experienced during a previous procedure. Instead, she completed a Cologuard test, which was normal. Lower Extremity Edema: The patient reports her legs are very swollen, and the swelling worsened when she increased her water intake. Musculoskeletal Pain: The patient reports experiencing excruciating back pain during rectal exams and also has sharp pain over her left shoulder. HTN- compliant with regimen Hyperlipidemia- on statin Social History: - Living Situation: Resides in an assisted living community called [facility]. - Transportation: Relies on the hospital van for appointments and has difficulty finding rides. 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 Father No problems noted. Social History Housing: Assisted Living Facility Alcohol intake: never Patient Tobacco Use Status: Former Tobacco user e-Cigarette/Vaping Use: Former Use Advance Directives Date on File: 12/03/22 service: No Current occupational status: retired Cognitive needs: Yes (walker) Hearing needs: No Vision needs: Yes (rx glasses) Questionnaire Thrive Questionnaire Date Thrive assessed: 07/20/25 AUDIT C Alcohol Use Questionnaire (AUDIT-C) 1. How often do you have a drink containing alcohol?: Never 3. How often do you have six or more drinks on one occasion?: Never Total Score: 0 LILLY-7 AMB Questionnaire LILLY-7 Date LILLY - 7 assessed: 07/20/25 Source: Developed by Drs. Jose Daniel Boone, Esther Nunez, Sam Olivia and colleagues, with an educational asya from [employer]. Review of Systems Narrative Review of Systems - Constitutional: Reports insomnia for months. - Cardiovascular: Reports bilateral leg swelling. - Respiratory: Denies snoring or waking up gasping for air. - Gastrointestinal: Reports constipation managed with prune juice causing daily bowel movements. - Musculoskeletal: Reports back pain and sharp left shoulder pain. - Neurological: Reports episodes of forgetfulness. - Psychiatric: Endorses a history of bipolar depression and anxiety. Physical exam (Primary Care) Vital Signs: Last Vital Signs Temp 96.9 F 10/21/25 12:50 Pulse 93 10/21/25 12:50 Resp 16 10/21/25 12:50 BP 104/64 10/21/25 12:50 Pulse Ox 97 10/21/25 12:50 Oxygen Delivery Method Room Air 10/21/25 12:50 BMI result Body Mass Index 28.8 Tobacco/Smoking Status: Tobacco use Status Tobacco use date assessed 07/20/25 10/21/25 12:50 Patient Tobacco Use Status Former Tobacco user 10/21/25 12:50 e-Cigarette/Vaping Use Former Use 10/21/25 12:50 Thrive Assessment: Date of Thrive Assessment Date Thrive assessed 07/20/25 10/21/25 12:50 Narrative Physical Exam - Vitals: Blood pressure is 104/64 mmHg. - Lungs: Clear to auscultation bilaterally, no wheezing noted. - Cardiovascular: Regular rhythm with a soft murmur. - Abdomen: Soft, non-distended, and non-tender with normal bowel sounds. - Extremities: Bilateral lower extremity edema present, left 1+, greater than right. Coding Level of Care Code Est Pt Level 4 (68789) Add On Problem Visit Only Diagnoses Primary hypertension I10 Hypertension type: primary hypertension Mixed hyperlipidemia E78.2 Hyperlipidemia type: mixed hyperlipidemia Assessment & Plan Assessment & Plan (1) Hypertension: Comment: BP today was 138/80 Code(s): I10 - Essential (primary) hypertension Category: Medical Qualifiers: Hypertension type: primary hypertension Qualified Code(s): I10 - Essential (primary) hypertension (2) Hyperlipidemia: Code(s): E78.5 - Hyperlipidemia, unspecified Category: Medical Qualifiers: Hyperlipidemia type: mixed hyperlipidemia Qualified Code(s): E78.2 - Mixed hyperlipidemia Plan Assessment and Plan 1. Chronic Insomnia - The patient reports persistent insomnia for months despite being on multiple sedating medications. - A sleep study has never been performed. - To rule out an underlying sleep disorder such as sleep apnea, a referral will be placed for a home sleep study. 2. Anxiety/Health Concern Regarding Liver Disease/Bipolar disorder - continue follow up with psychiatry 3. Heart Murmur and Lower Extremity Edema - Physical exam revealed a soft heart murmur and bilateral edema. - A baseline echocardiogram will be ordered to evaluate heart structure and valve function. 4. Chronic Constipation - Prune juice is effectively managing her constipation, with daily bowel movements reported. - She will continue with this regimen. 5. HTN/Hyperlipidemia/Health Maintenance - Comprehensive lab work, including a CBC, CMP, thyroid panel, B12, and Vitamin D, has been ordered. - continue atorvastatin, amlodipine and metoprolol - The patient is scheduled for a follow-up visit in approximately three months. Plan - A referral will be placed to the sleep clinic for evaluation and to arrange a home sleep study to investigate her chronic insomnia. - Comprehensive blood work, including a full panel with liver function tests, thyroid panel, B12, and Vitamin D, has been ordered - A baseline echocardiogram will be ordered to evaluate the newly noted heart murmur and contribute to the workup of her leg swelling. Patient Instructions - Please go for your blood work next week at the hospital lab. - Your prescription for metoprolol has been refilled and sent to your mail-order pharmacy, [facility]. - It is very important to avoid drinking alcohol because of the medications you are taking. - The sleep clinic will call you to schedule a home sleep study to help figure out why you are having trouble sleeping. - The cardiology department at the hospital will call you to schedule an ultrasound of your heart. - Continue using prune juice for your constipation since it is working well for you. Orders: Orders Ferritin Today D64.9 - Anemia, unspecified, E78.5 - Hyperlipidemia, unspecified, I10 - Essential (primary) hypertension IRON PROFILE Today D64.9 - Anemia, unspecified, E78.5 - Hyperlipidemia, unspecified, I10 - Essential (primary) hypertension TSH reflex Free T4 Today D64.9 - Anemia, unspecified, E78.5 - Hyperlipidemia, unspecified, I10 - Essential (primary) hypertension Complete Blood Count Auto Diff Today D64.9 - Anemia, unspecified, E78.5 - Hyperlipidemia, unspecified, I10 - Essential (primary) hypertension Comprehensive Met. Panel Today D64.9 - Anemia, unspecified, E78.5 - Hyperlipidemia, unspecified, I10 - Essential (primary) hypertension Folate Today D64.9 - Anemia, unspecified, E78.5 - Hyperlipidemia, unspecified, I10 - Essential (primary) hypertension Hemoglobin A1c Today D64.9 - Anemia, unspecified, E78.5 - Hyperlipidemia, unspecified, I10 - Essential (primary) hypertension Vitamin B12 Today D64.9 - Anemia, unspecified, E78.5 - Hyperlipidemia, unspecified, I10 - Essential (primary) hypertension Vitamin D 25-OH Total Today D64.9 - Anemia, unspecified, E78.5 - Hyperlipidemia, unspecified, I10 - Essential (primary) hypertension Microalbumin, Random (w Creat) Today D64.9 - Anemia, unspecified, E78.5 - Hyperlipidemia, unspecified, I10 - Essential (primary) hypertension CA echo transthoracic complete Today M79.89 - Other specified soft tissue disorders, R01.1 - Cardiac murmur, unspecified Referrals Sleep Medicine Referral G47.00 - Insomnia, unspecified Medications: Changed From metoprolol succinate ER 1 tab PO BEDTIME To metoprolol succinate ER 25 mg PO BEDTIME 90 tabs 3RF 90 days Patient Instructions: GET BLOOD WORK NEXT WEEK AT [facility] WE WILL ALSO BOOK HOME SLEEP STUDY FOR YOU WE WILL SCHEDULE AN ULTRASOUND OF YOUR HEART, THEY WILL CALL YOU WITH APPOINTMENT INFO, TEST [facility] AT [facility]
[2025-10-21 12:50] VITALS: BP 104/64; PULSE 93; RESP 16; TEMP 36.1; O2SAT 97; BMI 28.8
--- OUTSIDE RECORDS SUMMARY | 2025-10-21 14:29 | XMS_ITS | Data Portability ---
Author Organization [place] [facility] Address [address] [place] [id number] Care Team Providers Care Cashier Name Role Phone HARE, YOAV Primary Care Provider Assessment Encounter Date Assessment Date Assessment LastModified [...] By Organization Details Last Modified Time 03/11/2020 [id number] [facility] you [facility] yo ur [facility]. We cannot always find the exact [...] in your condition between 8am-10pm, [facility] at [phone] to help navigate your care. krystal Not available 03/11/2020 15:14:13 Reason for Referral None Reported. Problems Name Problem SNOMED Code Status Onset Date Resolution Date Notes Provider Name and Address Organization Details Recorded Time Hyperlipidemi a 33632924 Active 2019 SHAHRAM AGUILAR NP [address] [place], [address], [place] [facility] 0 15:11:26 Problem Notes None recorded. Medical Equipment None Reported. Allergies Allergen ID Allergen Name Allergen Category Reaction Reaction Severity Criticality Documentation Date Start Date Code Code System Note Provider Name and Address Organization Details Recorded Time 454449 Substance with sulfonami de structure and antibacte rial mechanism of action (substanc e) medicatio n Not available Not available Not available 03/11/2020 54189 8003 SNOMED SHAHRAM AGUILAR NP [address] [place], [address], [place] [facility] 0 15:09:48 929557 propranol ol medicatio n Not available Not available Not available 03/11/2020 8787 RxNorm SHAHRAM AGUILAR NP [address] [place], [address], [place] [facility] 0 15:10:16 Medications [...] Vitals Date Recorded Body temperature Oxygen saturation Heart rate Respiratory rate Systolic And Diastolic Provider Name and Address Organization Details Last Updated DateTime 0 97.3 [degF] 98 % 78 /min 18 /min 128/86 mm[Hg] Not Available [facility] 0 15:13:14 Social History Question Answer Notes LastModified by Organizat ion Details LastModified Time Tobacco Smoking Status Former Smoker 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, 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 [address] [place], [address], [place] [facility] 03/11/2020 15:13:14 Do You Have An Advance [...] Visiting Friends Or Family Or Going To Christian Or Club Meetings) 3 Or 4 Times [...] Family History Nothing Reported Notes:pt doesn't know [facility] Medical History Condition Response Coronary Artery [...] Diagnosis/Indication Diagnosis SNOMED-CT Code Diagnosis ICD10 Code Diagnosis IMO Codes Diagnosis Note [id number] SHAHRAM AGUILAR NP [facility] [address] [place] [address] SHI HUDSON [address] 03/11/2020 15:06:16 03/13/2020 17:11:40 Hordeolum externum of left eyelid [id number] 13436 H00.016 Health Concerns Section Related Observation LastModified by Organization Detai ls LastModified Time None Recorded Concern Status LastModified by Organization Details LastModified Time None Recorded Advance Directives Directive Y: Payers Insurance Date Sequence Insurance Name Policy Number Policy Godfrey Covered Member ID Godfrey Member ID Guarantor Name 03/11/2020 2 [place] Cally Alejandre [id number] Cally Alejandre 03/16/2020 2 [place] Cally Alejandre [id number] Cally Alejandre 03/11/2020 1 [place] [facility] Cally Alejandre [id number] Cally Alejandre 03/16/2020 1 [place] [facility] Cally Alejandre [id number] Cally Alejandre 03/11/2020 1 *SELF PAY* Cally Alejandre [id number] Cally Alejandre Notes Date Note Type Note Provider Name and Address Organization Details Recorded Time 03/11/2020 text/html pt reports some pinkness and redness in both her eyes that started a day or so ago. Denies itching or pain. Reports some drainage from the eyes. Denies any discomfort to the eye. Denies any change in vision. Pt denies a hx of seasonal allergies. SHAHRAM AGUILAR, JENNIFER [address] [place], [place] [address], [address], [place] [facility] 03/11/2020 16:31:18 OBGyn Episode No OBEpisode recorded.
== END 2025-10-21 13:40 | disposition home or self-care (01) ==
LOC: HO.HMCHD 12:40
PROVIDERS: PCP Internal Medicine; Visit Provider Internal Medicine
DX: I10 Essential (primary) hypertension (principal); E78.2 Mixed hyperlipidemia

== ENCOUNTER → 2025-10-21 12:40 | Outpatient (BNVA) | payer MEDICARE, SELFPAY | PROVIDERS: PCP Internal Medicine; Visit Provider Internal Medicine | DX: I10 Essential (primary) hypertension (principal); E78.2 Mixed hyperlipidemia | CPT/HCPCS: 99212 ==

== ENCOUNTER 2025-10-26 09:18 | Outpatient (REF) | payer MEDICARE, SELFPAY ==
--- OUTSIDE RECORDS SUMMARY | 2025-10-26 09:23 | XMS_ITS | Data Portability ---
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 We cannot always find the [...] in your condition between 8am-10pm, please call [facility] at [phone] to help navigate your care. krystal Not available 03/11/2020 15:14:13 Reason for Referral None Reported. Problems Name Problem SNOMED Code Status Onset Date Resolution Date Notes Provider Name and Address Organization Details Recorded Time Hyperlipidemi a 33235921 Active 2019 SHAHRAM AGUILAR NP [address] [place], [address], [place] [facility] 0 15:11:26 Problem Notes None recorded. Medical Equipment None Reported. Allergies Allergen ID Allergen Name Allergen Category Reaction Reaction Severity Criticality Documentation Date Start Date Code Code System Note Provider Name and Address Organization Details Recorded Time 459835 Substance with sulfonami de structure and antibacte rial mechanism of action (substanc e) medicatio n Not available Not available Not available 03/11/2020 14527 8003 SNOMED SHAHRAM AGUILAR NP [address] [place], [address], [place] [facility] 0 15:09:48 353516 propranol ol medicatio n Not available Not available Not available 03/11/2020 8787 RxNorm SHAHRAM AGUILAR NP [address] [place], [address], [place] [facility] 0 15:10:16 Medications [...] /min 18 /min 128/86 mm[Hg] Not Available [facility] 0 15:13:14 Social History Question Answer Notes LastModified by Organizat ion Details LastModified Time Tobacco Smoking Status Former Smoker SHAHRAM 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 Medical History Condition Response Coronary Artery Disease [...] ICD10 Code Diagnosis IMO Codes Diagnosis Note [id number] SHAHRAM AGUILAR NP [facility] [address] [place] [address] SHI HUDSON [address] 03/11/2020 15:06:16 03/13/2020 17:11:40 Hordeolum externum of left eyelid [id number] 52794 H00.016 Health Concerns Section Related Observation LastModified by Organization Detai ls LastModified Time None Recorded Concern Status LastModified by Organization Details LastModified Time None Recorded Advance Directives Directive Y: Payers Insurance Date Sequence Insurance Name Policy Number Policy Godfrey Covered Member ID Godfrey Member ID Guarantor Name 03/11/2020 2 [place] Cally Alejandre [id number] Cally Alejandre 03/16/2020 2 [place] Cally Alejandre [id number] Cally Alejandre 03/11/2020 1 [place] [facility] Cally Alejandre [id number] Cally Alejandre 03/16/2020 1 [place] [facility] Cally Alejandre [id number] Cally Alejandre 03/11/2020 1 *SELF PAY* Cally Alejandre [id number] Cally Alejandre Notes Date Note Type Note [...] hx of seasonal allergies. SHAHRAM AGUILAR, JENNIFER [address] [place], [place] [address], [address], [place] [facility] 03/11/2020 16:31:18 OBGyn Episode No OBEpisode recorded.
[2025-10-26 11:04] LABS: Hematocrit 33.2 % (37.0-47.0); Hemoglobin 11.0 g/dl (12.0-16.0); Imm Gran Abs Auto 0.02 X10*3/uL (0.00-0.03); Imm Gran Pct Auto 0.4 % (0.0-0.4); Lymphocytes Absolute Auto 1.4 X10*3/uL (1.2-4.9); MANUAL DIFF FLAG SCAN; Mean Corpuscular HGB Conc 33.1 g/dl (31.0-35.0); Mean Corpuscular Hemoglobin 29.8 pg (27.0-33.0); Mean Corpuscular Volume 90.0 fL (80.0-98.0); NRBC Abs Auto 0.000 X10*3/uL (0.0-0.012); NRBC Pct Auto 0.0 /100WBC (0.0-0.2); PLT CLUMP 1; Red Blood Count 3.69 X10*6/uL (4.20-5.50); SCAN SMEAR FLAG 1
[2025-10-26 11:16] LABS: Alanine Aminotransferase 10 U/L (0-31); Albumin Level 4.1 g/dL (3.5-5.0); Alkaline Phosphatase 69 U/L (39-117); Anion Gap 14 (12-20); Aspartate Amino Transferase 22 U/L (5-31); Blood Urea Nitrogen 16 mg/dL (9-16); Calcium 9.4 mg/dL (8.4-10.2); Carbon Dioxide 20 mmol/L (22-29); Chloride 106 mmol/L (96-108); Estimated Glomerular Filt Rate > 60; Iron 66 mcg/dL (30-160); Percent Iron Saturation 30 % (15-50); Potassium 4.1 mmol/L (3.3-5.1); Sodium 136 mmol/L (135-145); Total Iron Binding Capacity 217 mcg/dL (228-428); Total Protein 7.3 g/dL (6.5-8.0); Unsaturated Iron Binding 151 ug/dL
[2025-10-26 11:28] LABS: Platelet Count 156 X10*3/uL (160-400); White Blood Count 5.5 X10*3/uL (4.8-10.8)
[2025-10-26 11:32] LABS: Ferritin 130 ng/mL (10-250)
[2025-10-26 11:44] LABS: Folate 12.7 ng/mL (> or = 4.0); Vitamin B12 442 pg/mL (200-900)
[2025-10-26 11:53] LABS: Microalbum/Creatinine Ratio Ur 88.2 ug/mg cr (<30)
== END 2025-10-26 09:19 | disposition home or self-care (01) ==
LOC: HO.10HDL 09:18
PROVIDERS: Visit Provider Internal Medicine
DX: Z13.1 Encounter for screening for diabetes mellitus (principal); I10 Essential (primary) hypertension; E78.5 Hyperlipidemia, unspecified; D64.9 Anemia, unspecified
CPT/HCPCS: 36415; 80053; 82043; 82306; 82570; 82607; 82728; 82746; 83036; 83540; 84443; 85025